=== PATIENT | female | born 1945 | race Caucasian/White ===

== ENCOUNTER 2019-04-18 16:16 | Inpatient (IN) | payer MEDICARE, BC ==
--- NOTE | 2019-04-18 17:43 | ED ---
Lower Extremity - HPI Summary HPI Summary: A 74 y/o F with Parkinson's presents to ED c/o R hip pain onset three days ago. Three days ago, after supper, she fell. She's unsure why exactly she fell. Due to the Parkinson's, she typically is weak on her R-side. She hit her back on the stove when she fell, but denies head trauma and LOC. She had imaging today that shows a displaced, angulated R hip fracture. She also denies any fever, chills, erythema of eyes, sore throat, CP, SOB, cough, abdominal pain, N/V, dysuria, hematuria, edema, rash, or dizziness. Pain is rated as 7 out of 10. Denies blood thinners. She's been taking extra strength Tylenol for pain. 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 Negative: Fever, Dizziness - Allergies/Home Medications Allergies/Adverse Reactions: Allergies Allergy/AdvReac Type Severity Reaction Status Date / Time ciprofloxacin Allergy Unknown Verified 04/18/19 16:24 Reaction Details codeine Allergy Unknown Verified 04/18/19 16:24 Reaction Details morphine Allergy Unknown Verified 04/18/19 16:24 Reaction Details Penicillins Allergy Unknown Verified 04/18/19 16:24 Reaction Details Sulfa (Sulfonamide Allergy Unknown Verified 04/18/19 16:24 Antibiotics) Reaction Details PMH/Surg Hx/FS Hx/Imm Hx Previously Healthy: No Endocrine/Hematology History: Denies: Hx Diabetes Cardiovascular History: Reports: Hx Hypertension - FLUCTUATES Denies: Hx Pacemaker/ICD History: Denies: Hx Renal Disease Sensory History: Denies: Hx Hearing Aid Psychiatric History: Denies: Hx Panic Disorder - Cancer History Hx Chemotherapy: No Hx Radiation Therapy: No - Surgical History Surgery Procedure, Year, and Place: EXP LAP, APPENDECTOMY Infectious Disease History: No Infectious Disease History: Denies: Traveled Outside the [place] in Last 30 Days - Family History Family History: neg: breast CA - Social History Occupation: Retired Lives: With Family Review of Systems Negative: Fever, Chills Negative: Erythema Negative: Sore Throat Negative: Chest Pain Negative: Shortness Of Breath, Cough Negative: Abdominal Pain, Vomiting, Nausea Negative: dysuria, hematuria Musculoskeletal: Other - pos: R hip pain Negative: Edema Negative: Rash Neurological: Other - neg: dizziness All Other Systems Reviewed And Are Negative: Yes Physical Exam - Summary Physical Exam Summary: Constitutional: Well-developed, Well-nourished, Alert. (-) Distressed Skin: Warm, Dry HENT: Normocephalic; Atraumatic Eyes: Conjunctiva normal Neck: Musculoskeletal ROM normal neck. (-) JVD, (-) Stridor, (-) Tracheal deviation Cardio: Rhythm regular, rate normal, Heart sounds normal; Intact distal pulses; The pedal pulses are 2+ and symmetric. Radial pulses are 2+ and symmetric. (-) Murmur Pulmonary/Chest wall: Effort normal. (-) Respiratory distress, (-) Wheezes, (-) Rales Abd: Soft, (-) epigastric tenderness, (-) Distension, (-) Guarding, (-) Rebound Musculoskeletal: (-) Edema, Pain with elevation about 50 degrees of RLE, no tenderness, distal sensations intact. Lymph: (-) Cervical adenopathy Neuro: Alert, Oriented x3 Psych: Mood and affect Normal Triage Information Reviewed: Yes Vital Signs On Initial Exam: Initial Vitals Temp Pulse Resp BP Pulse Ox 99 F 100 16 169/108 96 04/18/19 16:18 04/18/19 16:18 04/18/19 16:18 04/18/19 16:18 04/18/19 16:18 Vital Signs Reviewed: Yes Diagnostics - Vital Signs Vital Signs Temp Pulse Resp BP Pulse Ox 04/18/19 16:18 99 F 100 16 169/108 96 - Laboratory Result Diagrams: 04/18/19 17:55 Lab Statement: Any lab studies that have been ordered have been reviewed, and results considered in the medical decision making process. - Radiology CXR Radiology Interpretation Completed By: Radiologist Summary of Radiographic Findings: IMPRESSION: #. Elevated lung volumes suggest potential obstructive lung disease. #. No acute cardiopulmonary process evident. ED provider has reviewed this report. - EKG 1732 Cardiac Rate: Tachycardia - 105 bpm EKG Rhythm: Sinus Tachycardia Summary of EKG Findings: No STEMI. Re-Evaluation - Re-Evaluation 1 Re-Evaluation Time: 17:59 Change: Unchanged Comment: Discussing plans for admission with patient and . Lower Extremity Course/Dx - Course Course Of Treatment: Patient is a 74 y/o F with Parkinson's presenting with R hip pain onset three days ago s/p fall. Patient had imaging done today that found displaced, angulated R hip fracture. Denies blood thinners. EKG shows sinus tachycardia at 105 bpm, no STEMI. CXR shows "#. Elevated lung volumes suggest potential obstructive lung disease. #. No acute cardiopulmonary process evident.". Consulted with Dr. Ambrose, hospitalist, who will admit patient. Consulted with Dr. Oconnell, who believes surgery likely tomorrow. - Diagnoses Provider Diagnoses: Displaced fracture of right femoral neck - Physician Notifications Discussed Care Of Patient With: Christelle Ambrose - hospitalist Time Discussed With Above Provider: 17:54 Instructed by Provider To: Admit As Inpatient Discharge - Sign-Out/Discharge Documenting (check all that apply): Patient Departure - ADMIT Patient Received Moderate/Deep Sedation with Procedure: No - Discharge Plan Disposition: ADMITTED TO [facility] Referrals: Rao Up, FLOUR BROKER [Primary Care Provider] - - Attestation Statements Document Initiated by Scribe: Yes Documenting Scribe: Chastity Ocasio Provider For Whom Scribe is Documenting (Include Credential): Dr. Robbie Su MD Scribe Attestation: Chastity Hernandez, scribed for Dr. Robbie Su MD on 04/18/19 at 1824. Status of Scribe Document: Ready Consult Consult: 1800: Consult with Dr. Oconnell, ortho Advises, likely surgery tomorrow
[2019-04-18 18:12] LABS: Hematocrit 42 % (35-47); Hemoglobin 14.3 g/dL (12.0-16.0); Mean Corpuscular HGB Conc 34 g/dL (31-36); Mean Corpuscular Hemoglobin 28 pg (27-31); Mean Corpuscular Volume 83 fL (80-97); Mean Platelet Volume 7.1 fL (7.4-10.4); Platelet Count 223 10^3/uL (150-450); Red Cell Distribution Width 14 % (10.5-15); White Blood Count 6.6 10^3/uL (3.5-10.8)
[2019-04-18 18:19] LABS: Activated Partial Thrombo Time 31.4 seconds (26.0-38.0); INR 1.09 (0.82-1.09)
[2019-04-18 18:27] LABS: Albumin 4.3 g/dL (3.2-5.2); Albumin/Globulin Ratio 1.3 (1-3); BUN/Creatinine Ratio 25.6 (8-20); Calcium 9.8 mg/dL (8.6-10.3); EGFR African American 87.6 (>60); EGFR Non-African American 72.4 (>60); Globulin 3.3 g/dL (2-4); Potassium 3.7 mmol/L (3.5-5.0); Total Bilirubin 0.4 mg/dL (0.2-1.0); Total Protein 7.6 g/dL (6.4-8.9)
[2019-04-18 20:15] LABS: TSH (Thyroid Stimulating Horm) 0.76 mcIU/mL (0.34-5.60)
--- NOTE | 2019-04-18 20:20 | HP ---
CC: PCP, Rao Up NP * HISTORY AND PHYSICAL: DATE OF ADMISSION: 04/18/19 ATTENDING PHYSICIAN: Dr. Jay Oconnell. CHIEF COMPLAINT: Right hip pain. HISTORY OF PRESENT ILLNESS: Briefly, Ms. Batres is a 74-year-old community ambulator with Parkinson's disease and hypothyroidism, who presents with right hip pain after a fall on Thursday night. She has had because of her Parkinson's several issues with gait and balance control, but she says she does not exactly remember the fall and this is the same history for any of the falls she has. Sometimes, she gets a little lightheaded or she feels from where she is and then she falls. She denies any loss of consciousness, no numbness or tingling, but she cannot remember the fall. Her then found her and went to help get her up and picked her up, and elevated her legs. He has a history of clam bed worker and evaluated her, did not see anything was broken. He got her up and the next day she was having some pain weightbearing, so her [id number] who is a therapist brought her a walker and she practiced walking. There was some concern for some issues, she was unable to fully weight bear, but she was able to get around with the walker. She denies any numbness or tingling. No fevers or chills. No chest pain or shortness of breath. PAST MEDICAL HISTORY: Significant for Parkinson's and she sees Dr. Zaidi for that and hypothyroidism. She said she had hypertension in the past, but it has been controlled with Madhav Chi. PAST SURGICAL HISTORY: Appendectomy. She has had two breech children, but no other surgeries. MEDICATIONS: Tylenol p.r.n. and that she was only taking this since the injury. FAMILY HISTORY: Negative. SOCIAL HISTORY: She is retired. She walks with no assistive devices. She denies tobacco and does not drink. She lives with her . They have handicap accessible bathrooms. 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 She has 2 children, one of which is local. REVIEW OF SYSTEMS: A 14-point review of systems was reviewed and is significant only for right hip pain and difficulty ambulating. Otherwise, remainder of the systems negative. PHYSICAL EXAMINATION GENERAL: She is in no acute distress. She is well developed and well nourished. She is oriented x3. She has pleasant mood and normal affect. Good balance and coordination of the upper extremities. She has full range of motion of her right and left arms. She is sitting in the ER in a wheelchair fully clothed. VITAL SIGNS: Temperature is 99, pulse is 100, respiratory rate 16, O2 saturation is 96% on room air, blood pressure is 169/108 and somewhat elevated. HEENT: EOMI. CHEST: Clear to auscultation. HEART: Regular rate and rhythm. ABDOMEN: Soft, nontender. EXTREMITIES: Examination of the right hip demonstrates skin is intact. She is sensate to light touch about the first dorsal webspace; medial, lateral, dorsal , and plantar foot. She is able to dorsiflex and plantarflex. She has 2+ PT pulses. No calf pain. Sensate to light touch grossly distally and brisk cap refill. DIAGNOSTIC STUDIES/LAB DATA: X-rays were reviewed that demonstrate a valgus impacted femoral neck fracture with mild displacement. Labs: WBC of 6.6, hematocrit of 42, platelets of 223. INR 1.09. Sodium is 138 , potassium 3.7, chloride 103, carbon dioxide 24, BUN is 20, creatinine 0.78, glucose 131, calcium of 9.8. ASSESSMENT AND PLAN: She has a right hip valgus impacted femoral neck fracture. This is amenable to cannulated screws. I reviewed briefly the fracture, the type of fixation, the risks and benefits of surgery. Risks include but are not limited to bleeding, infection; damage to nerves, vessels, surrounding structures; wound nonhealing, persistent pain, need for further surgery, scarring, stiffness, incomplete relief of symptoms, risks of anesthesia , risk of DVT. She will undergo medical risk optimization and be admitted to the medicine service to be medically optimized. Her labs appeared to be perfectly managed, although she has some mild hyperglycemia. We will continue to monitor her status and if she is cleared, we will take her to surgery tomorrow for right hip cannulated screws. [id number]/[facility] #: [id number] [place]
[2019-04-18 21:48] LABS: Vitamin D Total 25(OH) 48.8 ng/mL (20-50)
[2019-04-18] MEDS ORDERED: Heparin VIAL(*) 5000 UNITS/ML VIAL (FIVE THOUSAND) SUBCUT SCH (22:00)
[2019-04-18] MEDS: Acetaminophen TAB* 325 MG PO PRN (22:37)
--- NOTE | 2019-04-18 22:52 | HP ---
CC: Rao Up NP * HISTORY AND PHYSICAL: DATE OF ADMISSION: 04/18/19 PROVIDER: Anna Rodas NP PRIMARY CARE PROVIDER: Rao Up NP ATTENDING PHYSICIAN WHILE IN THE HOSPITAL: Janel Guthrie MD * (dictated by Anna Rodas NP) CHIEF COMPLAINT: Right hip pain. HISTORY OF PRESENT ILLNESS: Ms. Batres is a 74-year-old female with past medical history significant for hypothyroid, acid reflux, anxiety, history of diverticulitis, who presented to the emergency room complaining of right hip pain after a fall on Thursday. The patient reports that she was home on Thursday, and approximately 6 p.m., lost her balance, fell, hitting her back on the stove and landing on her right hip. The patient reported that she had had right hip pain since Thursday. She had been doing exercises at home and using a walker. She felt like it was getting better, but was only able to bear little weight on the right leg. Due to the continued pain, the patient had imaging of her hip, which showed a displaced, angulated right hip fracture. So, she presented to the emergency room for further evaluation. The patient denies any fevers or chills. She denies any chest pain or shortness of breath. Denies any cough or hemoptysis. Denies any nausea, vomiting, diarrhea, or abdominal pain. Denies any gross hematuria, dysuria, focal weakness, or sensory loss. Denies any visual complaints. She does complain of right hip pain. Denies any rashes. She does have an abrasion noted to her left posterior back from the scrape she sustained during her fall. Denies any psychosis or anxiety. The patient currently rates her pain at 4. PAST MEDICAL HISTORY: Significant for: 1. Hypothyroid. 2. GERD. 3. Anxiety. 4. History of diverticulitis. 5. Parkinson's with mild right-side weakness. PAST SURGICAL HISTORY: 1. Appendectomy. 2. 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 3. Tonsillectomy. HOME MEDICATIONS: Include: 1. Levothyroxine 125 mcg p.o. daily. 2. Aspirin 81 mg p.o. daily. 3. Multivitamin. 4. Omeprazole 20 mg p.o. daily. 5. Citracal 2 tablets p.o. daily. 6. Sertraline 25 mg p.o. daily. ALLERGIES: CIPRO, CODEINE, MORPHINE, PENICILLINS, SULFA. FAMILY HISTORY: Father with a pacemaker, mother with an arrhythmia. No reported history of diabetes. Sister has lupus and mother had colon cancer in her 90s. SOCIAL HISTORY: Denies any tobacco, alcohol, or illicit drug use. She is . She lives with her . She is independent. Surrogate decision maker in the event she is unable to make her own decision is her , Librado. She is a full code. REVIEW OF SYSTEMS: An 11-point review of systems was completed, all pertinent positives were mentioned in the HPI. PHYSICAL EXAMINATION GENERAL: At this time, Ms. Batres is a 74-year-old female. She is alert and oriented, sitting on the wheelchair in the emergency room. She is in no acute distress. She is well developed, well nourished. VITAL SIGNS: Blood pressure 150/81, temperature is 98.2, heart rate 102, respirations 18, O2 saturation 98%. HEENT: Head is atraumatic, normocephalic. Eyes: EOMs are intact. Sclerae anicteric and not pale. Oral mucosa appeared to be moist. NECK: Supple. There is no C-spine tenderness. LUNGS: Clear to auscultation bilaterally. No wheezes, rales, or rhonchi. CARDIAC: S1, S2, regular rate and rhythm. No murmurs, rubs, or gallops. ABDOMEN: Soft and nontender. Bowel sounds are present x4. EXTREMITIES: She is able to move all 4 extremities. Pedal pulses are +2 bilaterally. She has no calf tenderness. She does have tenderness to the right hip. BACK: She does have a superficial abrasion noted to her left posterior back without surrounding erythema. NEUROLOGIC: She is awake, alert, oriented x3. Speech is clear. Thought process is intact. Cranial nerves II through XII are grossly intact. SKIN: She does have abrasion to the left posterior back. DIAGNOSTIC STUDIES/LAB DATA: WBCs are 6.6, RBCs 5.10, hemoglobin 14.3, hematocrit is 42, platelet count 223. INR 1.09. Sodium 138, potassium 3.7, chloride 103, carbon dioxide is 24, anion gap was 11, BUN 20, creatinine 0.78, glucose was 131, calcium was 9.8. ASTs were 20, ALTs were 16, alkaline phosphatase was 84. TSH 0.76. Vitamin D level is pending. Urine is pending. Chest x-ray: Elevated lung volumes suggest potential obstructive lung disease. No acute cardiopulmonary process is evident. She had an electrocardiogram, which showed sinus tachycardia at a rate of 105. ASSESSMENT AND PLAN: Ms. Batres is a 74-year-old female with a past medical history significant for hypothyroid, gastroesophageal reflux disease, anxiety, Parkinson's disease with chronic mild right-sided weakness, who presented to the emergency room after a fall at home on Thursday sustaining a right hip fracture. She will be admitted inpatient for: 1. Right hip fracture. The patient was seen in consultation by Orthopedics. Management of hip fracture will be per Orthopedics, PT/OT per Orthopedics. DVT per Orthopedics, bowel regimen per Orthopedics. Dr. Oconnell saw the patient in the emergency room and the patient will go to the OR tomorrow for a right hip repair. 2. Hypothyroid. She should continue on her levothyroxine 125 mcg p.o. daily. 3. Gastroesophageal reflux disease. Continue on omeprazole 20 mg p.o. daily. 4. Anxiety. She will continue on her sertraline 25 mg p.o. daily. 5. FEN. She can have a regular diet. She will be n.p.o. after midnight. 6. Code status: She is a full code. 7. DVT prophylaxis: I will give her 1 dose of heparin 5000 units subcu this evening. She will hold further dosing. I will place her on SCDs as the patient will be going to the OR tomorrow afternoon. I did discuss the heparin with Dr. Pearce from Anesthesia who approved this dosing prior to midnight tonight. TIME SPENT: Time spent on this admission was approximately 60 minutes; greater than half that time was spent at the bedside reviewing events leading thus far to her hospitalization, performing physical exam, and reviewing my plan of care. I have discussed this with my attending physician, Dr. Janel Guthrie; she is in agreement with my plan. ANNA RODAS, CRIMINAL JUDGE [id number]/[facility] #: [id number] [place]
[2019-04-19 02:11] LABS: Urine Appearance Cloudy; Urine Bacteria Absent (Absent); Urine Bilirubin Negative (Negative); Urine Blood Negative (Negative); Urine Color Yellow; Urine Glucose Negative (Negative); Urine Ketones Negative (Negative); Urine Nitrite Negative (Negative); Urine Protein Negative (Negative); Urine Red Blood Cell Absent (Absent); Urine Specific Gravity 1.016 (1.010-1.030); Urine Squamous Epithelial Cell Present (Absent); Urine Urobilinogen Negative (Negative); Urine White Blood Cell 2+(11-20/hpf) (Absent)
[2019-04-19] MEDS ORDERED: NS 0.9% 1000 ML** 1,000 ML IV SCH ×2 (02:45→22:30)
[2019-04-19] MEDS ORDERED: Cyclobenzaprine TAB* 10 MG PO ONE (03:11)
[2019-04-19] MEDS ORDERED: Cyclobenzaprine TAB* 10 MG ONE (03:15)
[2019-04-19] MEDS: Acetaminophen TAB* 325 MG PO PRN ×3 (03:19→20:36)
[2019-04-19] MEDS: Levothyroxine TAB* 125 MCG TAB PO SCH (05:24)
--- NOTE | 2019-04-19 06:41 | PN ---
Progress Note - Progress Note Date of Service: 04/19/19 Note: Pt to be examined but sleeping soundly. Will see later today. NPO
[2019-04-19] MEDS: Multivitamins/Minerals TAB PO SCH (08:49)
[2019-04-19] MEDS: Pantoprazole TAB * 40 MG TAB PO SCH (08:52)
[2019-04-19] MEDS ORDERED: Sertraline* 25 MG TAB PO SCH (09:00)
--- NOTE | 2019-04-19 11:05 | PN ---
Subjective Date of Service: 04/19/19 Interval History: Patient reports some breathrough hip pain at time of visit. It was previously well controlled. She reports some mild abdomen discomfort due to needing to have a BM. She denies chest pain, difficulty breathing, diarrhea, nausea, vomiting. She denies chest pain or SOB when walking [address] or going up stairs. Objective Active Medications: Acetaminophen (Tylenol Tab*) 650 mg PO Q4H PRN PRN Reason: FEVER/PAIN Last Admin: 04/19/19 10:48 Dose: 650 mg Sodium Chloride (Ns 0.9% 1000 Ml) 1,000 mls @ 75 mls/hr IV PER RATE [facility] Last Admin: 04/19/19 04:25 Dose: 75 mls/hr Levothyroxine Sodium (Synthroid Tab*) 125 mcg PO 0600 [facility] Last Admin: 04/19/19 05:24 Dose: 125 mcg Multivitamins/Minerals (Theragran/Minerals Tab*) 1 tab PO DAILY [facility] Last Admin: 04/19/19 08:49 Dose: Not Given Pantoprazole Sodium (Protonix Tab*) 40 mg PO DAILY [facility] Last Admin: 04/19/19 08:52 Dose: 40 mg Sertraline HCl (Zoloft*) 25 mg PO 2100 [facility] Vital Signs - 8 hr 04/19/19 04/19/19 04/19/19 03:19 03:24 04:30 Temperature 97.7 F Pulse Rate 75 Respiratory 16 16 Rate Blood Pressure 157/75 (mmHg) O2 Sat by Pulse 98 Oximetry 04/19/19 04/19/19 05:27 07:31 Temperature 97.7 F Pulse Rate 74 Respiratory 16 16 Rate Blood Pressure 178/93 (mmHg) O2 Sat by Pulse 96 Oximetry Oxygen Devices in Use Now: None Appearance: Thin, elderly white female, laying comfortably in hospital bed, appearing in NAD Eyes: No Scleral Icterus, PERRLA Ears/Nose/Mouth/Throat: Mucous Membranes Moist Neck: NL Appearance and Movements; NL JVP Respiratory: Symmetrical Chest Expansion and Respiratory Effort, Clear to Auscultation Cardiovascular: NL Sounds; No Murmurs; No JVD, RRR Abdominal: NL Sounds; No Tenderness; No Distention Extremities: No Edema, No Clubbing, Cyanosis Skin: No Rash or Ulcers Neurological: Alert and Oriented x 3 Result Diagrams: 04/18/19 17:55 04/18/19 17:55 Assess/Plan/Problems-Billing Assessment: 74 yo white female with pmhx parkinson's, hypothyroidism, hx of HTN, anxiety, and GERD presents to ED for R hip pain 3 days after mechanical fall at home. - Patient Problems (1) Hip fracture Code(s): S72.009A - FRACTURE OF UNSP PART OF NECK OF UNSP FEMUR, INIT SNOMED Code(s): 508205922 Comment: -slightly displaced fracture to right femoral neck -s/p mechanical fall 3 days prior to admission -patient has RCRI risk score of 0; NSQIP serious complication risk of 4.2% and cardiac complication risk of 0%; patient is cleared from a medical standpoint for surgery -scheduled for surgery with Dr. Oconnell today -continue bedrest, po pain control, and bowel regimen -postoperatively, orthopedic surgery will direct PT needs (2) Parkinsons Code(s): G20 - PARKINSON'S DISEASE SNOMED Code(s): 52268886 Comment: -likely contributed to her fall at home -it appears patient doesn't take medication at home -supportive care (3) Hypothyroid Code(s): E03.9 - HYPOTHYROIDISM, UNSPECIFIED SNOMED Code(s): 98086829 Comment: -continue home synthroid (4) Hypertension Code(s): I10 - ESSENTIAL (PRIMARY) HYPERTENSION SNOMED Code(s): 67378666 Comment: -patient doesn't take antihypertensives at home -has been minimally hypertensive at times, will discontinue fluids and continue to monitor -hesitant to restart medication at this time as patient will be postop tomorrow and likely to have orthostatic hypotension (5) DVT prophylaxis Code(s): Z29.9 - ENCOUNTER FOR PROPHYLACTIC MEASURES, UNSPECIFIED SNOMED Code( s): 277900955 Comment: -no chemical ppx in setting of surgery today -continue SCDs (6) Full code status Code(s): Z78.9 - OTHER SPECIFIED HEALTH STATUS SNOMED Code(s): 280204206
--- NOTE | 2019-04-19 11:06 | PN ---
Progress Note - Progress Note Date of Service: 04/19/19 Note: Patient has a right hip valgus impacted femoral neck fracture requiring cannulated screw fixation. She is optimized by our medicine service and will go to the operating room this evening with Dr Oconnell. I discussed this plan with the patient, she is aware and agreeable, all of her questions were answered.
[2019-04-19] MEDS ORDERED: diPHENhydraMINE IV* 50 MG/ML 1 ml VIAL (BENADRYL) IV PRN (12:41)
[2019-04-19] MEDS ORDERED: diPHENhydraMINE PO* 25 MG PO PRN (12:41)
[2019-04-19] MEDS ORDERED: Ropivacaine* 2 MG/ML 20 ML VIAL (0.2%) ONE (13:50)
[2019-04-19] MEDS ORDERED: Buffered Lidocaine 1% SYRIN* 1 ML/SYRINGE INTRADERM ONE ×2 (14:43→14:46)
[2019-04-19] MEDS ORDERED: ceFAZolin 2 GM PREMIX in ORs 2 GM/50 ML BAG ONE (14:45)
[2019-04-19] MEDS ORDERED: Lactated Ringers 1000 ML Bag* 1,000 ML IV SCH (15:00)
[2019-04-19] MEDS ORDERED: Midazolam* 1 MG/ML 2 ML VIAL (2 MG) ONE (16:12)
[2019-04-19] MEDS ORDERED: fentaNYL* 50 MCG/ML 2 ML VIAL (100 MCG VIAL) ONE (16:12)
[2019-04-19] MEDS ORDERED: Bupivacaine 0.5% SDV PF* 30ML VIAL ONE (16:13)
[2019-04-19] MEDS ORDERED: Propofol* 10 MG/ML 20 ML BTL ONE (16:13)
[2019-04-19] MEDS ORDERED: Lidocaine 2% PF * 5 ML VIAL ONE (16:14)
[2019-04-19] MEDS ORDERED: Famotidine IV* 10 MG/ML 2 ML (20 mg) ONE (16:23)
--- NOTE | 2019-04-19 16:26 | PN ---
Progress Note - Progress Note Date of Service: 04/19/19 Note: H and P update Pt doing ok. NPO for R hip cannulated screws. Risks and benefits discussed at length. Consent signed. Optimized by medicine.
[2019-04-19] MEDS ORDERED: Ondansetron INJ* 2 MG/ML VIAL ONE (16:58)
[2019-04-19] MEDS ORDERED: diPHENhydraMINE IV* 50 MG/ML 1 ml VIAL (BENADRYL) ONE (16:58)
[2019-04-19] MEDS ORDERED: fentaNYL* 50 MCG/ML 2 ML VIAL (100 MCG VIAL) IV PRN (17:33)
[2019-04-19] MEDS ORDERED: DiMENhydriNATE IV* 50 MG/ML VIAL IV PUSH PRN (17:33)
[2019-04-19] MEDS ORDERED: Ondansetron INJ* 2 MG/ML VIAL IV PRN (17:33)
[2019-04-19] MEDS ORDERED: Naloxone* 0.4 MG/ML 1 ML VIAL IV PRN (17:33)
[2019-04-19] MEDS ORDERED: Docusate CAP* 100 MG PO PRN (22:22)
[2019-04-19] MEDS ORDERED: traMADol TAB* 50 MG PO PRN ×2 (22:23→22:24)
[2019-04-19] MEDS ORDERED: HYDROmorphone INJ1* 1 MG/ML SYRINGE IV PRN ×2 (22:25→22:26)
[2019-04-19] MEDS: Sertraline* 25 MG TAB PO SCH (22:36)
[2019-04-20] MEDS ORDERED: Ondansetron INJ* 2 MG/ML VIAL IV PRN (00:32)
[2019-04-20] MEDS ORDERED: Cyclobenzaprine TAB* 10 MG PO PRN ×2 (00:32→15:32)
[2019-04-20] MEDS: ceFAZolin 1 GM* X 3 DOSES POST-OP Q8H (AddVan) IVPB SCH ×6 (00:56→16:29)
[2019-04-20 06:09] LABS: BUN/Creatinine Ratio 18.4 (8-20); Calcium 9.6 mg/dL (8.6-10.3); EGFR African American 77.2 (>60); EGFR Non-African American 63.8 (>60); Potassium 4.2 mmol/L (3.5-5.0)
[2019-04-20 06:15] LABS: Hematocrit 39 % (35-47); Hemoglobin 13.1 g/dL (12.0-16.0); Mean Platelet Volume 7.2 fL (7.4-10.4); Platelet Count 193 10^3/uL (150-450)
[2019-04-20] MEDS: Levothyroxine TAB* 125 MCG TAB PO SCH (06:15)
--- NOTE | 2019-04-20 07:41 | PN ---
Progress Note - Progress Note Date of Service: 04/20/19 Note: Pt seen and examined. Had a rough night with significant pain. But it has calmed down. Denies numbness or tingling. No calf pain. Temp Pulse Resp BP Pulse Ox 98.1 F 76 16 141/65 99 04/20/19 07:32 04/20/19 07:32 04/20/19 07:32 04/20/19 07:32 04/20/19 07:32 NAD. AAOx3. lying comfortably in the bed. Dressing in place. calf soft and nontender. SILT grossly distally. brisk cap refill. able to DF/PF foot. flex/ ext toes. Laboratory Results - last 24 hr 04/18/19 04/20/19 04/20/19 17:55 05:40 05:40 Hgb 13.1 Hct 39 Plt Count 193 MPV 7.2 L Sodium 138 Potassium 4.2 Chloride 104 Carbon Dioxide 27 Anion Gap 7 BUN 16 Creatinine 0.87 Est GFR ( Amer) 77.2 Est GFR (Non-Af Amer) 63.8 BUN/Creatinine Ratio 18.4 Glucose 117 H Calcium 9.6 Blood Type O Negative Antibody Screen Negative A/P 74 yo F POD#1 from R hip cannulated screws doing well WBAT- PT/OT ancef post op dvt ppx with lovenox dispo snf vs home with services. pt would like to consider rehab
[2019-04-20] MEDS: Acetaminophen TAB* 325 MG PO PRN ×4 (07:49→22:31)
[2019-04-20] MEDS: Pantoprazole TAB * 40 MG TAB PO SCH (08:38)
[2019-04-20] MEDS: Multivitamins/Minerals TAB PO SCH (08:38)
--- NOTE | 2019-04-20 10:08 | OP ---
AMENDED REPORT TO CORRECT DATE OF OPERATION - ESIGNED BEFORE ADJUSTMENTS CC: PCP, Rao Up NP * DATE OF OPERATION: 04/19/19 - ROOM #346 DATE OF : 47 SURGEON: Jay Oconnell MD CLERK MANAGER: None available. PRE-OP DIAGNOSIS: Right valgus impacted femoral neck fracture. POST-OP DIAGNOSIS: Right valgus impacted femoral neck fracture. OPERATIVE PROCEDURE: Closed reduction with cannulated screws to the right hip. COMPLICATIONS: None. ESTIMATED BLOOD LOSS: 50. IMPLANTS: Three 7.3 mm short thread screws of the appropriate lengths. INDICATIONS: Carmela Batres is a 74-year-old female with Parkinson's disease, who fell on Thursday. She presented to the ER on Thursday with a valgus impacted femoral neck fracture. She had been weightbearing with a walker on it. She was brought in by her . She underwent admission, medical optimization by the medicine team and we discussed surgical treatment. Risks and benefits were discussed included, but not limited to bleeding, infection, damage to nerves, vessels, surrounding structures, wound nonhealing, persistent pain, need for further surgery, scarring, stiffness, incomplete relief of symptoms, risks of anesthesia, and risk of DVT. She elected to proceed. DESCRIPTION OF PROCEDURE: The patient was greeted in the preoperative area by the attending surgery. Correct extremity was marked and consent was confirmed. The patient was brought back to the operating suite, where she was placed in supine position on the operating table. She then underwent spinal anesthesia, after which she was properly positioned on the fracture table. Gentle internal reduction was used to reduce the fracture, which was checked on the AP and lateral views and found to be acceptable. The right hip was then prepped and draped in the usual sterile fashion with chlorhexidine soap, scrub, and alcohol wipe and a final prep of ChloraPrep. After appropriate surgical pause indicating side, site, procedure, and administration of antibiotics, a 10 blade was used to make a lateral incision. The soft tissues were dissected to expose the IT band, which was then incised as well. At this point, the 2.0 mm guidewire was then placed getting inferiorly to try to capture as much as as the inferior neck as well as the fracture fragment. Once this was placed, two pins were placed proximally in an inverted triangle pattern, first superiorly, then posteriorly. Once these were checked in the AP and lateral views, once they were appropriately positioned. They were measured, two screws were size 75 and one was size 80. The lateral cortex was drilled beginning inferiorly, this was secured to with a good purchase, then superiorly and posteriorly as well with good purchase. The pins were removed. The hardware was found to be inside the joint. Several views were taken to make sure it did not penetrate. Final images were obtained. The wound was copiously irrigated with sterile saline. The IT band was closed with 0 Vicryl interrupted fashion. The deep tissue was closed with 3-0 Monocryl and then subcutaneously 3-0 Monocryl subcutaneous sutures and the skin with yudy. The wound was injected with 0.2% ropivacaine. Sterile dresses were applied. She was awoken from anesthesia, transferred to PACU in stable condition. POSTOPERATIVE PLAN: She will be weightbearing as tolerated. She will begin physical therapy as soon as possible. She is on 24 hours postoperative antibiotics. DVT prophylaxis was considered and because of the high risk, she will be on Lovenox after 6 weeks. I will see the patient back in 10 the 14 days and follow her in the hospital. Dressing change will be postop day 2. [id number]/[facility] #: [id number] COLLIN
[2019-04-20] MEDS ORDERED: Enoxaparin(*) 40 MG/0.4 ML SYR SUBCUT SCH (14:00)
[2019-04-20] MEDS ORDERED: Senna TAB PO PRN (15:40)
[2019-04-20] MEDS ORDERED: Polyethylene Glycol 3350* 17 GM PACKET PO PRN (15:40)
[2019-04-20] MEDS ORDERED: Magnesium Hydroxide LIQ* 30 ML UDC PO PRN (15:40)
[2019-04-20] MEDS ORDERED: Magnesium Hydroxide LIQ* 30 ML UDC ONE (15:42)
--- NOTE | 2019-04-20 15:58 | PN ---
Subjective Date of Service: 04/20/19 Interval History: Patient reports her hip pain has been well tolerated with tylenol this morning, prefers to not use opiates. Tried tramadol overnight and vomited. No nausea/ vomiting since. Overnight pain was worse due to muscle spasms in right thigh. Denies dysuria, abd pain, fever/chills, chest pain, dyspnea. Objective Active Medications: Acetaminophen (Tylenol Tab*) 650 mg PO Q4H PRN PRN Reason: FEVER/PAIN Last Admin: 04/20/19 13:13 Dose: 650 mg Cyclobenzaprine HCl (Flexeril Tab*) 10 mg PO BID PRN PRN Reason: muscle spasm Diphenhydramine HCl (Benadryl Iv*) 25 mg IV Q6H PRN PRN Reason: PRURITIS Diphenhydramine HCl (Benadryl Po*) 25 mg PO Q6H PRN PRN Reason: ITCHING Docusate Sodium (Colace Cap*) 100 mg PO BID PRN PRN Reason: CONSTIPATION Last Admin: 04/20/19 15:46 Dose: 100 mg Docusate Sodium (Colace Cap*) 100 mg PO BID [facility] Enoxaparin Sodium (Lovenox(*)) 40 mg SUBCUT Q24H [facility] Stop: 05/31/19 14:01 Last Admin: 04/20/19 14:12 Dose: 40 mg Hydromorphone HCl (Dilaudid Inj1s*) 0.5 mg IV Q2H PRN PRN Reason: PAIN BREAKTHROUGH Hydromorphone HCl (Dilaudid Inj1s*) 1 mg IV Q4H PRN PRN Reason: UNRELIEVED PAIN Last Admin: 04/20/19 00:08 Dose: 1 mg Cefazolin Sodium 1 gm/ Sodium (Chloride) 50 mls @ 200 mls/hr IVPB Q8H [facility] Stop: 04/20/19 17:14 Last Admin: 04/20/19 08:37 Dose: 200 mls/hr Sodium Chloride (Ns 0.9% 1000 Ml) 1,000 mls @ 75 mls/hr IV PER RATE [facility] Last Admin: 04/20/19 00:08 Dose: 75 mls/hr Ceftriaxone Sodium 1 gm/ (Sodium Chloride) 50 mls @ 200 mls/hr IVPB Q24H [facility] Levothyroxine Sodium (Synthroid Tab*) 125 mcg PO 0600 [facility] Last Admin: 04/20/19 06:15 Dose: 125 mcg Magnesium Hydroxide (Milk Of Magnesia Liq*) 30 ml PO BID [facility] Magnesium Hydroxide (Milk Of Magnesia Liq*) 30 ml PO BID PRN PRN Reason: CONSTIPATION Multivitamins/Minerals (Theragran/Minerals Tab*) 1 tab PO DAILY [facility] Last Admin: 04/20/19 08:38 Dose: 1 tab Ondansetron HCl (Zofran Inj*) 4 mg IV Q6H PRN PRN Reason: NAUSEA Last Admin: 04/20/19 00:41 Dose: 4 mg Pantoprazole Sodium (Protonix Tab*) 40 mg PO DAILY [facility] Last Admin: 04/20/19 08:38 Dose: 40 mg Polyethylene Glycol/Electrolytes (Miralax*) 17 gm PO DAILY PRN PRN Reason: CONSTIPATION Senna (Senokot Tab*) 1 tab PO BEDTIME PRN PRN Reason: CONSTIPATION Sertraline HCl (Zoloft*) 25 mg PO 2100 [facility] Last Admin: 04/19/19 22:36 Dose: 25 mg Tramadol HCl (Ultram*) 25 mg PO Q6H PRN PRN Reason: PAIN MODERATE Tramadol HCl (Ultram*) 50 mg PO Q6H PRN PRN Reason: PAIN SEVERE Last Admin: 04/19/19 22:36 Dose: 50 mg Vital Signs - 8 hr 04/20/19 04/20/19 04/20/19 08:00 09:55 11:12 Temperature 98 F Pulse Rate 93 90 Respiratory 16 18 Rate Blood Pressure 145/72 99/57 (mmHg) O2 Sat by Pulse 94 98 Oximetry 04/20/19 04/20/19 12:04 15:44 Temperature 98.1 F Pulse Rate 100 Respiratory 16 Rate Blood Pressure 132/62 128/59 (mmHg) O2 Sat by Pulse 96 Oximetry Oxygen Devices in Use Now: None Appearance: Thin, elderly white female laying upright in hospital bed in NAD Eyes: No Scleral Icterus, PERRLA Ears/Nose/Mouth/Throat: Mucous Membranes Moist Neck: NL Appearance and Movements; NL JVP Respiratory: Symmetrical Chest Expansion and Respiratory Effort, Clear to Auscultation Cardiovascular: NL Sounds; No Murmurs; No JVD, RRR Abdominal: - - abd soft nontender nondistended Extremities: No Edema, No Clubbing, Cyanosis Skin: No Rash or Ulcers Neurological: Alert and Oriented x 3, NL Muscle Strength and Tone Result Diagrams: 04/20/19 05:40 04/20/19 05:40 Microbiology and Other Data: Microbiology 04/19/19 01:50 Urine Culture - Preliminary Urine Escherichia Coli Assess/Plan/Problems-Billing Assessment: 74 yo white female with pmhx parkinson's, hypothyroidism, hx of HTN, anxiety, and GERD presents to ED for R hip pain 3 days after mechanical fall at home. - Patient Problems (1) Hip fracture Code(s): S72.009A - FRACTURE OF UNSP PART OF NECK OF UNSP FEMUR, INIT SNOMED Code(s): 316902628 Comment: -slightly displaced fracture to right femoral neck -s/p mechanical fall 3 days prior to admission -s/p surgery with Dr. Oconnell 04/19/19 for closed reduction -continue pain control of prn tramadol, dilaudid, tylenol. Pt prefers to avoid opiates and has been taking tylenol since intolerance of one time tramadol -added prn flexeril -postoperatively, orthopedic surgery will direct PT needs (2) UTI (urinary tract infection) Comment: -incidental UTI found from preop UA and urine culture -urine culture growing E. coli, sensitivites pending -pt finished cefazolin which was given by ortho surg, starting IV ceftriaxone today -patient asymptomatic and afebrile (3) Parkinsons Code(s): G20 - PARKINSON'S DISEASE SNOMED Code(s): 61953873 Comment: -likely contributed to her fall at home -it appears patient doesn't take medication at home -supportive care (4) Hypothyroid Code(s): E03.9 - HYPOTHYROIDISM, UNSPECIFIED SNOMED Code(s): 88764253 Comment: -continue home synthroid (5) Hypertension Code(s): I10 - ESSENTIAL (PRIMARY) HYPERTENSION SNOMED Code(s): 26627294 Comment: -patient doesn't take antihypertensives at home -one time hypertensive to SBP 200 overnight, but has been normotensive since that time, will continue to monitor -hesitant to restart medication at this time as patients are frequently with orthostatic hypotension postoperatively (6) DVT prophylaxis Code(s): Z29.9 - ENCOUNTER FOR PROPHYLACTIC MEASURES, UNSPECIFIED SNOMED Code( s): 324414833 Comment: -lovenox (7) Full code status Code(s): Z78.9 - OTHER SPECIFIED HEALTH STATUS SNOMED Code(s): 145704577 Status and Disposition: d/c to [facility] tomorrow
[2019-04-20] MEDS ORDERED: cefTRIAXone(*) 1 GM in NS 0.9% 50 ML* 50 ML IVPB SCH (18:00)
[2019-04-20] MEDS: Sertraline* 25 MG TAB PO SCH (20:11)
[2019-04-20] MEDS: Docusate CAP* 100 MG PO SCH (20:11)
[2019-04-20] MEDS: Magnesium Hydroxide LIQ* 30 ML UDC PO SCH (20:12)
[2019-04-21] MEDS: Acetaminophen TAB* 325 MG PO PRN ×2 (04:30→08:50)
[2019-04-21 05:11] LABS: Hematocrit 35 % (35-47); Hemoglobin 11.9 g/dL (12.0-16.0); Mean Platelet Volume 7.1 fL (7.4-10.4); Platelet Count 183 10^3/uL (150-450)
[2019-04-21 05:24] LABS: Calcium 9.2 mg/dL (8.6-10.3); EGFR African American 93.1 (>60); EGFR Non-African American 76.9 (>60); Potassium 3.7 mmol/L (3.5-5.0)
[2019-04-21] MEDS: Levothyroxine TAB* 125 MCG TAB PO SCH (05:59)
--- NOTE | 2019-04-21 07:53 | PN ---
Subjective Date of Service: 04/21/19 Interval History: Ms. Batres reports a mild speckled rash to her hands. She denies other complaint. She thinks this rash just appeared overnight. She denies chest pain , SOB, nausea, or abdominal pain. She is looking forward to starting intensive rehab so that she can get back home and healthy as soon as possible. Objective Active Medications: Acetaminophen (Tylenol Tab*) 650 mg PO Q4H PRN Cyclobenzaprine HCl (Flexeril Tab*) 10 mg PO BID PRN Diphenhydramine HCl (Benadryl Iv*) 25 mg IV Q6H PRN Diphenhydramine HCl (Benadryl Po*) 25 mg PO Q6H PRN Docusate Sodium (Colace Cap*) 100 mg PO BID PRN Docusate Sodium (Colace Cap*) 100 mg PO BID [facility] Enoxaparin Sodium (Lovenox(*)) 40 mg SUBCUT Q24H [facility] Hydromorphone HCl (Dilaudid Inj1s*) 0.5 mg IV Q2H PRN Hydromorphone HCl (Dilaudid Inj1s*) 1 mg IV Q4H PRN Sodium Chloride (Ns 0.9% 1000 Ml) 1,000 mls @ 75 mls/hr IV PER RATE [facility] Ceftriaxone Sodium 1 gm/ (Sodium Chloride) 50 mls @ 200 mls/hr IVPB Q24H [facility] Levothyroxine Sodium (Synthroid Tab*) 125 mcg PO 0600 [facility] Magnesium Hydroxide (Milk Of Magnesia Liq*) 30 ml PO BID [facility] Magnesium Hydroxide (Milk Of Magnesia Liq*) 30 ml PO BID PRN Multivitamins/Minerals (Theragran/Minerals Tab*) 1 tab PO DAILY [facility] Ondansetron HCl (Zofran Inj*) 4 mg IV Q6H PRN Pantoprazole Sodium (Protonix Tab*) 40 mg PO DAILY [facility] Polyethylene Glycol/Electrolytes (Miralax*) 17 gm PO DAILY PRN Senna (Senokot Tab*) 1 tab PO BEDTIME PRN Sertraline HCl (Zoloft*) 25 mg PO 2100 [facility] Tramadol HCl (Ultram*) 25 mg PO Q6H PRN Tramadol HCl (Ultram*) 50 mg PO Q6H PRN Vital Signs: Temp Pulse Resp BP Pulse Ox 98.2 F 88 18 140/69 95 04/21/19 03:14 04/21/19 03:14 04/21/19 03:14 04/21/19 03:14 04/21/19 03:14 Oxygen Devices in Use Now: None Appearance: Female lying in bed in NAD Eyes: No Scleral Icterus Ears/Nose/Mouth/Throat: Mucous Membranes Moist Neck: Trachea Midline Respiratory: Symmetrical Chest Expansion and Respiratory Effort Cardiovascular: NL Sounds; No Murmurs; No JVD Abdominal: NL Sounds; No Tenderness; No Distention Skin: No Rash or Ulcers Neurological: Alert and Oriented x 3, NL Muscle Strength and Tone Nutrition: Taking PO's Result Diagrams: 04/21/19 04:58 04/21/19 04:58 Microbiology and Other Data: Microbiology 04/19/19 01:50 Urine Culture - Preliminary Urine Escherichia Coli Assess/Plan/Problems-Billing Assessment: Ms. Batres is 74 yo white female with pmhx parkinson's, hypothyroidism, hx of HTN, anxiety, and GERD presents to ED for R hip pain 3 days after mechanical fall at home. - Patient Problems (1) Hip fracture Comment: - s/p surgery with Dr. Oconnell 04/19/19 for closed reduction - continue tylenol (2) UTI (urinary tract infection) Comment: - Suspect contamination - Afebrile, ecoli with < 10,000 colonies - Stop antibiotics (3) Hypertension Comment: - SBP 130-160s - Consider starting pain meds on [facility] or outpatient (4) Hypothyroid Comment: -continue home synthroid (5) Parkinsons Comment: - does not take meds outpatient - supportive care (6) DVT prophylaxis Comment: -lovenox (7) Full code status Comment: Status and Disposition: D/C to [facility]
[2019-04-21] MEDS: Docusate CAP* 100 MG PO SCH (07:56)
[2019-04-21] MEDS: Pantoprazole TAB * 40 MG TAB PO SCH (07:56)
[2019-04-21] MEDS: Multivitamins/Minerals TAB PO SCH (07:56)
[2019-04-21] MEDS: Magnesium Hydroxide LIQ* 30 ML UDC PO SCH (07:57)
[2019-04-21 08:00] VITALS: BP 148/68
--- NOTE | 2019-04-21 09:13 | DS ---
CC: Rao Up NP * DISCHARGE SUMMARY: DATE OF ADMISSION: 04/18/19 DATE OF DISCHARGE: 04/21/19 PRIMARY CARE PROVIDER: Rao Up NP. ATTENDING PHYSICIAN: Dr. Christelle Ambrose * (dictation provided by Zohra Anderson NP ). PRIMARY DIAGNOSES: 1. Right hip valgus impacted femoral neck fracture, status post closed reduction with cannulated screws. 2. Question urinary tract infection, ruled out. SECONDARY DIAGNOSES: 1. History of Parkinson's disease. 2. Hypothyroidism. 3. Question hypertension. PAST SURGICAL HISTORY: Appendectomy. MEDICATIONS AT THE TIME OF DISCHARGE: 1. Tylenol p.r.n. 2. Cyclobenzaprine p.r.n. 3. Docusate 100 mg p.o. b.i.d. p.r.n. 4. Lovenox 40 mg subcutaneously daily. 5. Levothyroxine 125 mcg p.o. daily. 6. Sertraline 25 mg p.o. daily. HOSPITAL COURSE: Ms. Batres is a 74-year-old female with a past medical history as outlined above, who presented to the emergency room on 04/18/19 with concern for right hip pain. Please see the dictated H and P from Anna Rodas for complete details. In brief, the patient reported that she had fallen on to her right hip on Thursday night prior to admission. She noted having Parkinson's and issues with gait and balance control and note that she is not on any Parkinson's medication outpatient but does follow Dr. Zaidi. On the following day, she was unable to fully weight bear and therefore she presented to the emergency room for evaluation where she was found to have a slightly displaced and angulated fracture of the right femoral neck. Ms. Batres was admitted to the hospital. She was seen in consultation by Dr. Oconnell from Orthopedics and ultimately taken to the OR on 04/20/19 for closed reduction and placement of cannulated screws as noted. Ms. Batres has been doing well in the postoperative period. There was concern that perhaps she had a urinary tract infection based on finding of E. coli in the urine, however, the patient only had less than 10,000 colony count. She had no fever. She had no dysuria, had no leukocytosis, therefore I think this was a simple contamination and antibiotics had been discontinued. The only thing I noted that the patient had slightly elevated blood pressure again this hospitalization and notes the history of the same. During the inpatient stay, she had blood pressure running up to 200 but generally ran more 130s to 160s. I did not start antihypertensive that she also had a low blood pressure 99/57, but I think she deserved close monitoring and would likely benefit from addition of antihypertensive either on [facility] or by her outpatient provider. Ms. Batres is medically stable for discharge. She will be going to [facility]. DISPOSITION: To [facility]. DIET: Low salt. ACTIVITY: As tolerated with hip precautions as outlined per Orthopedic Surgery. FOLLOWUP PLANS: Please follow up with our nurse practitioner, Rao Up, at the time of discharge regarding acute hospitalization, requesting regarding management of hypertension and/or potentially restarting Parkinson's medications. TIME SPENT: Approximately 60 minutes was spent on the discharge of this patient , more than half of the time was spent with the patient at the bedside reviewing the events leading up to and during this hospitalization, performing the physical examination and reviewing my plan of care. ZOHRA ANDERSON NP [id number]/[facility] #: [id number] COLLIN
--- NOTE | 2019-04-21 09:47 | PN ---
Progress Note - Progress Note Date of Service: 04/21/19 SOAP: Subjective: []Pt seen at bedside. She feels well with well controlled right hip pain. Denies CP, SOB, dizziness, nausea. Will be going to [facility] today. Objective: []General: NAD, appears comfortable RLE: Right hip dressing changed, incision CDI, thigh soft, DP2+, DF/PF intact, sensation intact to light touch distally Calves supple and nontender without erythema, edema or palpable cords Assessment: []74 yo F POD#2 from R hip cannulated screws Plan: [] WBAT- PT/OT dvt ppx with lovenox for 6 weeks DC to [facility] Vital Signs Temp 98 F 04/21/19 07:58 Pulse 79 04/21/19 07:58 Resp 18 04/21/19 08:00 BP 148/68 04/21/19 07:58 Pulse Ox 97 04/21/19 07:58 Intake & Output 04/20/19 04/21/19 04/21/19 18:59 06:59 18:59 Intake Total 1809 1000 360 Output Total 700 1050 500 Balance 1109 -50 -140 Intake: IV Fluids 997 NS (0.9%) 997 IVPB 222 NS (0.9%) 222 Oral 590 1000 360 Output: Urine 550 1050 500 Hammonds 150 Laboratory Last Values WBC 6.6 10^3/uL (3.5-10.8) 04/18/19 17:55 RBC 5.10 10^6 /uL (3.70-4.87) H 04/18/19 17:55 Hgb 11.9 g/dL (12.0-16.0) L 04/21/19 04:58 Hct 35 % (35-47) 04/21/19 04:58 MCV 83 fL (80-97) 04/18/19 17:55 MCH 28 pg (27-31) 04/18/19 17:55 MCHC 34 g/dL (31-36) 04/18/19 17:55 RDW 14 % (10.5-15) 04/18/19 17:55 Plt Count 183 10^3/uL (150-450) 04/21/19 04:58 MPV 7.1 fL (7.4-10.4) L 04/21/19 04:58 INR (Anticoag Therapy) 1.09 (0.82-1.09) 04/18/19 17:55 APTT 31.4 seconds (26.0-38.0) 04/18/19 17:55 Sodium 140 mmol/L (135-145) 04/21/19 04:58 Potassium 3.7 mmol/L (3.5-5.0) 04/21/19 04:58 Chloride 106 mmol/L (101-111) 04/21/19 04:58 Carbon Dioxide 26 mmol/L (22-32) 04/21/19 04:58 Anion Gap 8 mmol/L (2-11) 04/21/19 04:58 BUN 17 mg/dL (6-24) 04/21/19 04:58 Creatinine 0.74 mg/dL (0.51-0.95) 04/21/19 04:58 Est GFR ( Amer) 93.1 (>60) 04/21/19 04:58 Est GFR (Non-Af Amer) 76.9 (>60) 04/21/19 04:58 BUN/Creatinine Ratio 23.0 (8-20) H 04/21/19 04:58 Glucose 123 mg/dL (70-100) H 04/21/19 04:58 Calcium 9.2 mg/dL (8.6-10.3) 04/21/19 04:58 Total Bilirubin 0.40 mg/dL (0.2-1.0) 04/18/19 17:55 AST 20 U/L (13-39) 04/18/19 17:55 ALT 16 U/L (7-52) 04/18/19 17:55 Alkaline Phosphatase 84 U/L (34-104) 04/18/19 17:55 Total Protein 7.6 g/dL (6.4-8.9) 04/18/19 17:55 Albumin 4.3 g/dL (3.2-5.2) 04/18/19 17:55 Globulin 3.3 g/dL (2-4) 04/18/19 17:55 Albumin/Globulin Ratio 1.3 (1-3) 04/18/19 17:55 25-OH Vitamin D Total 48.8 ng/mL (20-50) 04/18/19 17:55 TSH 0.76 mcIU/mL (0.34-5.60) 04/18/19 17:55 Urine Color Yellow 04/19/19 01:50 Urine Appearance Cloudy 04/19/19 01:50 Urine pH 5.0 (5-9) 04/19/19 01:50 Ur Specific [place] 1.016 (1.010-1.030) 04/19/19 01:50 Urine Protein Negative (Negative) 04/19/19 01:50 Urine Ketones Negative (Negative) 04/19/19 01:50 Urine Blood Negative (Negative) 04/19/19 01:50 Urine Nitrate Negative (Negative) 04/19/19 01:50 Urine Bilirubin Negative (Negative) 04/19/19 01:50 Urine Urobilinogen Negative (Negative) 04/19/19 01:50 Ur Leukocyte Esterase 3+ (Negative) A 04/19/19 01:50 Urine WBC (Auto) 2+(11-20/hpf) (Absent) A 04/19/19 01:50 Urine RBC (Auto) Absent (Absent) 04/19/19 01:50 Ur Squamous Epith Cells Present (Absent) A 04/19/19 01:50 Urine Bacteria Absent (Absent) 04/19/19 01:50 Urine Glucose Negative (Negative) 04/19/19 01:50 Blood Type O Negative 04/18/19 17:55 Antibody Screen Negative 04/18/19 17:55
== END 2019-04-21 09:20 | DRG 482 ==
LOC: ED 16:16 → SSU 19:30
PROVIDERS: ADMIT Nurse Practitioner; ATTEND Hospitalist
PROC: 0QS634Z Reposition Right Upper Femur with Internal Fixation Device, Percutaneous Approach (ICD-10-PCS; principal; 2019-04-19 15:30)
DX: S72.001A Fracture of unspecified part of neck of right femur, initial encounter for closed fracture (principal); G20 Parkinson's disease; E03.9 Hypothyroidism, unspecified; I10 Essential (primary) hypertension; W01.198A Fall on same level from slipping, tripping and stumbling with subsequent striking against other object, initial encounter; R00.0 Tachycardia, unspecified; K21.9 Gastro-esophageal reflux disease without esophagitis; F41.9 Anxiety disorder, unspecified; S30.810A Abrasion of lower back and pelvis, initial encounter; Y92.009 Unspecified place in unspecified non-institutional (private) residence as the place of occurrence of the external cause; Z88.1 Allergy status to other antibiotic agents; Z88.5 Allergy status to narcotic agent; Z88.0 Allergy status to penicillin; Z79.890 Hormone replacement therapy; Z88.2 Allergy status to sulfonamides; Z91.14 Patient's other noncompliance with medication regimen; Z82.49 Family history of ischemic heart disease and other diseases of the circulatory system; Z80.0 Family history of malignant neoplasm of digestive organs; Z83.2 Family history of diseases of the blood and blood-forming organs and certain disorders involving the immune mechanism; Z79.01 Long term (current) use of anticoagulants; R73.9 Hyperglycemia, unspecified; R21 Rash and other nonspecific skin eruption
CPT/HCPCS: 36415; 71045; 80048; 80053; 81003; 81015; 82306; 84443; 85014; 85018; 85027; 85049; 85610; 85730; 86850; 86900; 86901; 87077; 87086; 87186; 93005; 99283; A9270-GY; C1713; G8978-GP-CL; G8979-GP-CI; G8987-GO-CL; G8988-GO-CI; J0690; J0696; J1170; J1200; J1644; J1650; J2250; J2405; J2704; J2795; J3010; J3490

== ENCOUNTER 2019-04-21 06:56 | Inpatient (IN) | payer MEDICARE, BC ==
--- OUTSIDE RECORDS SUMMARY | 2019-04-21 09:22 | XMS REPORT | Continuity of Care Document ---
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 Group Name: BC/BS of [place] Velazquez [address] PayID: [id number] Effective: 2010 Policy Number: [id number] [facility] ANGELI Batres Expires: 2012 Group Name: BC/BS of LEYLA [address] PayID: [id number] [place] Swanson [id number] Effective: 2012 Policy Number: [id number] [facility] Group Name: Medicare Supplement [address] PayID: [id number] [place] Swanson [id number] Problems Active Problems Provider Date Shoulder joint pain Ondina Paul M.D. Onset: 10/01/2011 Hypothyroidism Ondina Paul M.D. 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 Tobacco Use Start: Unknown Never Smoked Cigarettes Smoking Status Reviewed: 06/10/18 Never Smoked Cigarettes ETOH Use Occasionally consumes alcohol Tobacco Use Start: Unknown Patient has never smoked Recreational Drug Use Denies Drug Use Enjoy Exercising Enjoys exercising Madhav Chi Allergies, Adverse Reactions, Alerts Active Allergies Reaction Severity Comments Date Penicillin 12/19/2005 Sulfa 12/19/2005 Medications Active Medications SIG Qnty Indications Ordering Date Provider Walker 2 wheeled walker, 1units Rao Negro 04/17/2019 Misc use for Storm, [employer] ambulation Levothyroxine Sodium Take One Tablet 30tabs Viralnti RElly 01/24/2019 By Mouth Every Storm, [employer] 125mcg Tablets Morning On An Empty Stomach Omeprazole 1 by mouth every 90caps Malorie Amor, 06/04/2017 40mg day [employer] Capsules DR Tarsha Amor, 12/31/2016 Capsules [employer] Blood Pressure Use to monitor 1Cuff Malorie Amor, 07/12/2015 Monitor Automatic blood pressure [employer] With Large Cuff daily or as Kit needed Zoloft take one tablet 90tabs Gregg 02/21/2013 25mg Tablets by mouth every MD Dianne day Aspirin Take One Daily. 100units Ondina Jenkins 10/23/2004 81mg Ec Deniz Paul M.D. Citrucel 2 tabs po daily Unknown Tablets Multi For Her 50+ daily Unknown Tablets History Medications Multi For Him 50+ Malorie Amor, 12/31/2016 - [employer] 01/13/2017 Tablets Diflucan 1 tab by mouth once 1tabs Gregg 02/22/2016 - 150mg MD Dianne 12/31/2016 Tablets Moxifloxacin HCL 1 tab PO qd X 7 days 7tabs Malorie Amor, 02/12/2016 - [employer] 12/31/2016 400mg Tablets Cipro 1 tab by mouth twice 20tabs K57.32 Gregg 02/11/2016 - 500mg Tablets a day for MD Dianne 12/31/2016 diverticulitis Flagyl take 1 tablet by 30tabs K57.32 Gregg 02/11/2016 - 500mg Tablets mouth every 8 hours MD Dianne 12/31/2016 for 10 days for infection Hyoscyamine Sulfate dissolve 1 under the 30tabs 562.11 [facility] 2013 - tongue every 15 [facility] 06/19/2015 0.125mg Tablets minutes if needed for Dispers stomach pain, max daily dose is 6 tablets Metronidazole 1 by mouth three 30tabs 562.11 [facility] 04/06/2014 - 500mg times a day for 10 [facility] 06/19/2015 Tablets days Ciprofloxacin HCL 1 by mouth twice a 20tabs 562.11 [facility] 04/06/2014 - day for infection [facility] 06/19/2015 500mg Tablets [facility] 125mcg mouth in the morning [facility] 01/24/2019 Tablets on an empty stomach Zoloft 1 po qd 30tabs Nelly Tamez, 02/21/2013 - 50mg Tablets Sandeep Tse 02/21/2013 Omeprazole Take One Capsule By 30cap Malorie Amor, 02/08/2013 - 20mg Mouth Daily [facility] 06/04/[address] Rowe one po bid for 10 20tabs 562.11 Ondina Jenkins 11/19/2012 - 500mg Tablets days Carmencita Paul 01/03/2013 Metronidazole one po bid for 10 20tabs 562.11 Ondina Jenkins 11/19/2012 - 500mg days Carmencita Paul 01/03/2013 Tablets Ciloxan 2 drops each eye qid 1units Kay Dover 05/18/2011 - 0.3% Solution x 5-7 days Carmencita Grajeda 12/09/2011 Estrace apply 11/17 applicator 45G 616.10 Ondina Jenkins 03/13/2010 - 0.1mg/GM daily for one week, Carmencita Paul 12/09/2011 Cream and then tiw prn vaginal dryness Synthroid one po qd 90tabs Malorie Amor, 10/19/2007 - 100mcg [employer] 03/09/2014 Tablets Keflex 1 po bid 20caps 562.10 Ondina Jenkins 06/24/2006 - 500mg Capsules Carmencita Paul 12/02/2006 Diflucan 1 tablet once prn 1tabs Ondina Jenkins 04/10/2006 - 150mg Carmencita Paul 04/12/2006 Tablets Cipro one po bid for 10 20tabs Kay Dover 03/28/2006 - 500mg Tablets days Blegen, M.DElly 06/08/2006 Metronidazole one po bid for 10 20tabs Kay PElly 03/28/2006 - 500mg days Blegen, M.DElly 06/08/2006 Tablets Zithromax Z-Jigar two po qd the first 6tabs 461.0 Elgin Balderrama, 2005 - 250mg and then one po qd Claire.DElly 12/26/2005 Tablets for 4 days Zoloft one po qd 90tabs 300.02 Ondina Jenkins 10/23/2004 - 25mg Tablets Carmencita Paul 02/21/2013 Zoloft one po qd 30tabs 300.02 Rochelle AElly 04/22/2004 - 50mg Tablets Omega, 10/23/2004 [facility] Zithromax 2 on day one, then 6tabs Kay PElly 02/20/2004 - 250mg one qd x4 days Blegen, M.DElly 04/26/2004 Tablets Diflucan one po x1 prn yeast 1tabs Kay PElly 02/20/2004 - 150mg infection Blegen, M.D. 04/26/2004 Tablets Nitroglycerin SL one sl q 5 min x 3 100unit 786.50 Ondina Jenkins 2002 - prn chest pain. david Paul M.D. 10/23/2004 0.4mg Ibuprofen Tablets one po qid prn 100unit 716.90 Ondina Jenkins 06/23/2003 - s Carmenctia Paul 06/08/2006 600mg Zoloft one qd for 3 weeks 21tabs Ondina Jenkins 06/23/2003 - 25mg Tablets after tapering to 50 Carmencita Paul 04/26/2004 mg qd for 3 weeks Zoloft One qd 21tabs Ondina Jenkins 06/23/2003 - 50mg Tablets Carmencita Paul 06/23/2003 Gentamycin Ophth 2 drops qid until 5ml Endermis Hernández, 03/31/2003 - radha Tse 10/23/2004 3mg/ml Solution Synthyroid 1 po qday 90units Ondina Jenkins 06/21/2002 - O.1mg Carmencita Paul 10/19/2007 Zoloft One qd 100tabs Ondina Jenkins 01/12/2002 - 100mg Tablets Carmencita Paul 06/23/2003 Wrist Splint wear with wrist use 1units 719.44 Ondina Jenkins - Right Carmencita Paul 03/25/2011 Immunizations CPT Code Status Date Vaccine Lot # [id number] Given 08/27/2018 Influenza Vaccine High Dose PF [id number] 08199 Given 08/11/2017 Influenza Vaccine High Dose PF [id number] 62858 Given 08/11/2016 Influenza Virus Vaccine, Quadrivalent, 3 Yr > [id number] Quad, Preserv Free 59749 Given 08/16/2015 Influenza Virus Vaccine, Quadrivalent, 3 Yr > [id number] Quad, Preserv Free 31158 Given 06/19/2015 Prevnar-13 Pneumococcal Conjugate Vaccine [id number] 63457 Given 08/08/2014 Influenza Virus Vaccine, Quadrivalent, 3 Yr > [id number] Quad, Preserv Free 77209 Given 08/20/2012 Influenza Vaccine-Preservative Free 3 Yrs And [id number] Above 56082 Given 12/09/2011 Pneumovax 23 (PPSV23) 65+ years or high risk 2 [id number] to 64 year old 51914 Given 08/18/2011 Zoster Vaccine [id number] 48473 Given 08/14/2011 Influenza Vaccine-Preservative Free 3 Yrs And [id number] Above 81828 Given 08/27/2010 Influenza Vaccine-Preservative Free 3 Yrs And [id number] Above 25293 Given 03/13/2010 Tdap (Adacel) [id number] 37593 Given 08/31/2007 Influenza Virus Vaccine, 3 Yrs And Above [id number] 03594 Given 09/03/2006 Influenza Virus Vaccine, 3 Yrs And Above [id number] 82471 Given 09/19/2005 Influenza Virus Vaccine, 3 Yrs And Above [id number] 72132 Given 10/31/2004 Influenza Virus Vaccine, 3 Yrs And Above 23363 Given 09/08/2003 Influenza Virus Vaccine, 3 Yrs And Above 20480 Given 09/13/2002 Influenza Virus Vaccine, 3 Yrs And Above 52669 Given 09/20/2001 Influenza Virus Vaccine, 3 Yrs And Above 86811 Given 10/14/2000 Influenza Virus Vaccine, 3 Yrs And Above 57522 Given 12/16/1999 DT (Adult) 48813 Given 09/03/1999 Influenza Virus Vaccine, 3 Yrs And Above 09489 Given 09/04/1997 Influenza Virus Vaccine 64954 Given 08/17/1993 Influenza Virus Vaccine Vital Signs Date Vital Result Comment 04/18/2019 1:59pm BP Systolic 138 mmHg BP Diastolic 80 mmHg Heart Rate 76 /min Body Temperature 98.6 F Respiratory Rate 16 /min O2 % BldC Oximetry 97 % 06/10/2018 8:11am Weight 129.00 lb Weight 58.514 kg BP Systolic 140 mmHg BP Diastolic 82 mmHg Heart Rate 96 /min Body Temperature 98.4 F Respiratory Rate 16 /min Height 63.5 inches 5'3.50" BMI (Body Mass Index) 22.5 kg/m2 01/13/2017 8:57am Weight 132.00 lb Weight 59.875 kg BP Systolic 140 mmHg BP Diastolic 68 mmHg Heart Rate 76 /min Body Temperature 97.7 F O2 % BldC Oximetry 97 % 12/31/2016 8:08am Weight 131.00 lb Weight 59.422 kg BP Systolic 136 mmHg BP Diastolic 76 mmHg Heart Rate 88 /min Body Temperature 97.3 F Respiratory Rate 16 /min Height 64 inches 5'4" BMI (Body Mass Index) 22.5 kg/m2 O2 % BldC Oximetry 97 % 02/11/2016 10:31am Weight 137.00 lb Weight 62.143 kg BP Systolic 150 mmHg BP Diastolic 81 mmHg Heart Rate 104 /min Body Temperature 98.4 F 09/21/2015 8:49am Weight 141.00 lb Weight 63.958 kg BP Systolic 148 mmHg BP Diastolic 80 mmHg Heart Rate 72 /min 07/12/2015 11:12am BP Systolic 124 mmHg BP Diastolic 72 mmHg 07/10/2015 9:35am BP Systolic 140 mmHg BP Diastolic 80 mmHg 07/06/2015 1:40pm BP Systolic 118 mmHg BP Diastolic 70 mmHg 07/05/2015 9:48am BP Systolic 140 mmHg BP Diastolic 72 mmHg 06/19/2015 8:04am Weight 140.00 lb Weight 63.504 kg BP Systolic 150 mmHg BP Diastolic 80 mmHg Heart Rate 72 /min Height 64.5 inches 5'4.50" BMI (Body Mass Index) 23.7 kg/m2 04/06/2014 1:56pm Weight 135.00 lb Weight 61.236 kg BP Systolic 138 mmHg BP Diastolic 78 mmHg Heart Rate 88 /min Body Temperature 99.0 F 02/21/2014 8:07am Weight 137.00 lb Weight 62.143 kg BP Systolic 136 mmHg BP Diastolic 72 mmHg Heart Rate 72 /min Height 63.5 inches 5'3.50" BMI (Body Mass Index) 23.9 kg/m2 02/08/2013 8:09am Weight 129.00 lb Weight 58.514 kg BP Systolic 110 mmHg BP Diastolic 80 mmHg Heart Rate 88 /min Height 63.5 inches 5'3.50" BMI (Body Mass Index) 22.5 kg/m2 11/19/2012 10:44am Weight 133.00 lb Weight 60.329 kg BP Systolic 118 mmHg BP Diastolic 74 mmHg Heart Rate 96 /min Body Temperature 98.1 F 12/09/2011 10:29am Weight 136.00 lb Weight 61.690 kg BP Systolic 128 mmHg BP Diastolic 74 mmHg Heart Rate 96 /min Height 64.5 inches 5'4.50" BMI (Body Mass Index) 23.0 kg/m2 08/27/2010 12:38pm Weight 137.00 lb Weight 62.143 kg BP Systolic 140 mmHg BP Diastolic 80 mmHg Heart Rate 76 /min Body Temperature 97.8 F 05/21/2010 9:09am Weight 136.00 lb Weight 61.690 kg BP Systolic 118 mmHg BP Diastolic 68 mmHg Heart Rate 88 /min Body Temperature 98.6 F Right Visual Acuity Distance 20/20 Left Visual Acuity Distance 20/20 Both Visual Acuity Distance 20/20 Last Menstrual Period 0 03/13/2010 9:10am Weight 136.00 lb Weight 61.690 kg BP Systolic 128 mmHg BP Diastolic 80 mmHg Heart Rate 72 /min Height 64 inches 5'4" BMI (Body Mass Index) 23.3 kg/m2 02/20/2009 10:25am Weight 134.00 lb Weight 60.782 kg BP Systolic 120 mmHg BP Diastolic 78 mmHg Heart Rate 76 /min Height 64 inches 5'4" BMI (Body Mass Index) 23.0 kg/m2 12/15/2007 10:05am BP Systolic 126 mmHg BP Diastolic 70 mmHg Heart Rate 102 /min Height 64.75 inches 5'4.75" 11/17/2007 9:29am Weight 131.00 lb Weight 59.422 kg BP Systolic 120 mmHg BP Diastolic 70 mmHg Heart Rate 68 /min Height 64.75 inches 5'4.75" BMI (Body Mass Index) 22.0 kg/m2 06/24/2006 12:52pm Weight 132.00 lb Weight 59.875 kg BP Systolic 112 mmHg BP Diastolic 68 mmHg Heart Rate 76 /min Body Temperature 97.3 F Height 64.5 inches 5'4.50" BMI (Body Mass Index) 22.3 kg/m2 06/08/2006 11:57am Weight 133.50 lb Weight 60.556 kg BP Systolic 130 mmHg BP Diastolic 80 mmHg Heart Rate 76 /min Height 64.5 inches 5'4.50" BMI (Body Mass Index) 22.6 kg/m2 04/07/2006 9:46am Weight 135.00 lb Weight 61.236 kg BP Systolic 130 mmHg BP Diastolic 70 mmHg Height 65 inches 5'5" BMI (Body Mass Index) 22.5 kg/m2 03/31/2006 9:06am Weight 135.00 lb Weight 61.236 kg BP Systolic 110 mmHg BP Diastolic 62 mmHg Body Temperature 97.8 F Height 65 inches 5'5" BMI (Body Mass Index) 22.5 kg/m2 03/28/2006 11:00am Weight 135.00 lb Weight 61.236 kg BP Systolic 110 mmHg BP Diastolic 80 mmHg Body Temperature 98.3 F Height 65 inches 5'5" BMI (Body Mass Index) 22.5 kg/m2 12/19/2005 2:25pm Weight 140.00 lb Weight 63.504 kg BP Systolic 122 mmHg BP Diastolic 82 mmHg Body Temperature 96.8 F Height 65 inches 5'5" BMI (Body Mass Index) 23.3 kg/m2 04/23/2005 1:49pm Weight 143.00 lb Weight 64.865 kg BP Systolic 124 mmHg BP Diastolic 80 mmHg Heart Rate 80 /min Respiratory Rate 18 /min Height 65 inches 5'5" BMI (Body Mass Index) 23.8 kg/m2 10/23/2004 3:10pm Weight 142.00 lb Weight 64.411 kg BP Systolic 120 mmHg BP Diastolic 80 mmHg 04/22/2004 4:05pm Weight 145.00 lb Weight 65.772 kg BP Systolic 110 mmHg BP Diastolic 70 mmHg 04/19/2004 9:28am BP Systolic 122 mmHg BP Diastolic 80 mmHg 02/20/2004 4:11pm Weight 141.00 lb Weight 63.958 kg BP Systolic 132 mmHg BP Diastolic 80 mmHg Heart Rate 74 /min Body Temperature 97.2 F 06/23/2003 9:00am Weight 145.00 lb Weight 65.772 kg BP Systolic 122 mmHg BP Diastolic 80 mmHg Heart Rate 76 /min Respiratory Rate 18 /min Height 64.5 inches BMI (Body Mass Index) 24.5 kg/m2 04/18/2002 10:47am Weight 144.50 lb BP Systolic 114 mmHg BP Diastolic 68 mmHg Heart Rate 80 /min Height 65 inches BMI (Body Mass Index) 24.1 kg/m2 Results Test Date Facility Test Result H/L Range Note CBC No Diff 04/18/2019 [facility] White Blood 6.6 10^ 3/uL N 3.5-10.8 [phone] Count Red Blood Count 5.10 10^6/uL High 3.70-4.87 Hemoglobin 14.3 g/dL N 12.0-16.0 Hematocrit 42 % N 35-47 Mean Corpuscular Volume 83 fL N 80-97 Mean Corpuscular Hemoglobin 28 pg N 27-31 Mean Corpuscular HGB Conc 34 g/dL N 31-36 Red Cell Distribution Width 14 % N 10.5-15 Platelet Count 223 10^3/uL N 150-450 Mean Platelet Volume 7.1 fL Low 7.4-10.4 Comp Metabolic Panel 04/18/2019 [facility] Sodium 138 mmol/L N 135-145 [phone] Potassium 3.7 mmol/L N 3.5-5.0 Chloride 103 mmol/L N 101-111 Co2 Carbon Dioxide 24 mmol/L N 22-32 Anion Gap 11 mmol/L N 2-11 Glucose 131 mg/dL High 70-100 Blood Urea Nitrogen 20 mg/dL N 6-24 Creatinine 0.78 mg/dL N 0.51-0.95 BUN/Creatinine Ratio 25.6 High 8-20 Calcium 9.8 mg/dL N 8.6-10.3 Total Protein 7.6 g/dL N 6.4-8.9 Albumin 4.3 g/dL N 3.2-5.2 Globulin 3.3 g/dL N 2-4 Albumin/Globulin Ratio 1.3 N 1-3 Total Bilirubin 0.40 mg/dL N 0.2-1.0 Alkaline Phosphatase 84 U/L N 34-104 Alt 16 U/L N 7-52 Ast 20 U/L N 13-39 Egfr Non- 72.4 >60 Egfr 87.6 >60 1 Inr/Protime 04/18/2019 [facility] Inr 1.09 N 0.82- 1.09 2 [phone] Laboratory test 04/18/2019 [facility] Partial 31.4 seconds N 26.0-38.0 finding [phone] Thrombo Time PTT TSH (Thyroid Stimulating Horm) 0.76 mcIU/mL N 0.34-5.60 Vitamin D Total 25(Oh) 48.8 ng/mL N 20-50 3 Type & Screen 04/18/2019 [facility] Antibody Screen NEGATIVE [phone] Patient Blood Type O Negative Laboratory test 08/02/2018 [facility] TSH (Thyroid 0.44 N 0.34-5.60 finding [phone] Stimulating mcIU/mL Horm) Free T4 1.15 ng/dL High 0.61-1.12 Vitamin B12 592 pg/mL N 180-914 4 Folate > 20.00 ng/mL >3.99 Ceruloplasmin 31.0 mg/dL 5 Copper, Serum 1.38 g/mL 0.75-1.45 6 Liver Function 06/10/2018 [facility] Direct 0.10 mg/ dL N 0.03-0.18 Panel [phone] Bilirubin Indirect Bilirubin 0.3 mg/dL N 0.3-1.0 Laboratory 06/10/2018 [facility] TSH (Thyroid Stim 0.35 N 0.34-5.60 7 test finding [phone] Horm) mcIU/mL Lipid Profile 06/10/2018 [facility] Triglycerides 150 mg/dL 8 (Trig/Chol/HDL [phone] ) Cholesterol 198 mg/dL 9 HDL Cholesterol 46.6 mg/dL 10 LDL Cholesterol 121 mg/dL 11 Comp Metabolic Panel 06/10/2018 [facility] Sodium 138 mmol/L N 135-145 [phone] Potassium 4.1 mmol/L N 3.5-5.0 Chloride 102 mmol/L N 101-111 Co2 Carbon Dioxide 28 mmol/L N 22-32 Anion Gap 8 mmol/L N 2-11 Glucose 109 mg/dL High 70-100 Blood Urea Nitrogen 19 mg/dL N 6-24 Creatinine 0.94 mg/dL N 0.51-0.95 BUN/Creatinine Ratio 20.2 High 8-20 Calcium 9.4 mg/dL N 8.6-10.3 Total Protein 6.9 g/dL N 6.4-8.9 Albumin 4.4 g/dL N 3.2-5.2 Globulin 2.5 g/dL N 2-4 Albumin/Globulin Ratio 1.8 N 1-3 Total Bilirubin 0.40 mg/dL N 0.2-1.0 Alkaline Phosphatase 69 U/L N 34-104 Alt 32 U/L N 7-52 Ast 31 U/L N 13-39 Egfr Non- 58.5 >60 Egfr 70.8 >60 12 CBC Auto Diff 06/10/2018 [facility] White Blood 4.3 10^3/uL N 3.5-10.8 [phone] Count Red Blood Count 5.12 10^6/uL N 4.00-5.40 Hemoglobin 14.6 g/dL N 12.0-16.0 Hematocrit 43 % N 35-47 Mean Corpuscular Volume 83 fL N 80-97 Mean Corpuscular Hemoglobin 28 pg N 27-31 Mean Corpuscular HGB Conc 34 g/dL N 31-36 Red Cell Distribution Width 13 % N 10.5-15 Platelet Count 207 10^3/uL N 150-450 Mean Platelet Volume 7.9 um3 N 7.4-10.4 Abs Neutrophils 2.5 10^3/uL N 1.5-7.7 Abs Lymphocytes 1.2 10^3/uL N 1.0-4.8 Abs Monocytes 0.4 10^3/uL N 0-0.8 Abs Eosinophils 0.1 10^3/uL N 0-0.6 Abs Basophils 0 10^3/uL N 0-0.2 Abs Nucleated RBC 0 10^3/uL Granulocyte % 59.2 % N 38-83 Lymphocyte % 28.4 % N 25-47 Monocyte % 9.6 % High 0-7 Eosinophil % 2.1 % N 0-6 Basophil % 0.7 % N 0-2 Nucleated Red Blood Cells % 0.1 Laboratory test 06/30/2017 [facility] Clotest SEE RESULT 13 finding [phone] BELOW Laboratory test 06/30/2017 [facility] Surgical SEE RESULT 14, 15 finding [phone] Interface BELOW Order Liver Function 05/28/2017 [facility] Total Protein 7.0 g/dL N 6.4-8 Panel [phone] Albumin 4.3 g/dL N 3.2-5.2 Globulin 2.7 g/dL N 2-4 Albumin/Globulin Ratio 1.6 N 1-3 Total Bilirubin 0.50 mg/dL N 0.2-1.0 Direct Bilirubin 0.10 mg/dL N 0.03-0.18 Indirect Bilirubin 0.4 mg/dL N 0.3-1.0 Alkaline Phosphatase 66 U/L N 34-104 Alt 63 U/L High 7-52 Ast 54 U/L High 13-39 Liver Function 02/24/2017 [facility] Total Protein 7.2 g/dL N 6.4-8.9 Panel [phone] Albumin 4.4 g/dL N 3.2-5.2 Globulin 2.8 g/dL N 2-4 Albumin/Globulin Ratio 1.6 N 1-3 Total Bilirubin 0.50 mg/dL N 0.2-1.0 Direct Bilirubin 0.10 mg/dL N 0.03-0.18 Indirect Bilirubin 0.4 mg/dL N 0.3-1.0 Alkaline Phosphatase 75 U/L N 34-104 Alt 60 U/L High 7-52 Ast 52 U/L High 13-39 Hepatitis 02/24/2017 [facility] Hepatitis B Nonreactive N Nonreactive Acute Panel [phone] Surface Antigen Hepatitis B Core IgM Nonreactive N Nonreactive Hepatitis A AB IgM Nonreactive N Nonreactive Hepatitis C Antibody Nonreactive N Nonreactive Laboratory test 01/13/2017 [facility] Surgical SEE RESULT 16 finding [phone] Pathology BELOW CBC Auto Diff 12/31/2016 [facility] White Blood 5.3 10^3/uL N 3.5-10 [phone] Count .8 Red Blood Count 5.30 10^6/uL N 4.0-5.4 Hemoglobin 14.8 g/dL N 12.0-16.0 Hematocrit 45 % N 35-47 Mean Corpuscular Volume 84 fL N 80-97 Mean Corpuscular Hemoglobin 28 pg N 27-31 Mean Corpuscular HGB Conc 33 g/dL N 31-36 Red Cell Distribution Width 13 % N 10.5-15 Platelet Count 207 10^3/uL N 150-450 Mean Platelet Volume 9 um3 N 7.4-10.4 Abs Neutrophils 3.2 10^3/uL N 1.5-7.7 Abs Lymphocytes 1.5 10^3/uL N 1.0-4.8 Abs Monocytes 0.5 10^3/uL N 0-0.8 Abs Eosinophils 0.1 10^3/uL N 0-0.6 Abs Basophils 0 10^3/uL N 0-0.2 Abs Nucleated RBC 0 10^3/uL N Granulocyte % 60.2 % N 38-83 Lymphocyte % 28.7 % N 25-47 Monocyte % 8.8 % N 1-9 Eosinophil % 1.7 % N 0-6 Basophil % 0.6 % N 0-2 Nucleated Red Blood Cells % 0.1 N Comp Metabolic Panel 12/31/2016 [facility] Sodium 136 mmol/L N 133-145 [phone] Potassium 4.3 mmol/L N 3.5-5.0 Chloride 100 mmol/L Low 101-111 Co2 Carbon Dioxide 28 mmol/L N 22-32 Anion Gap 8 mmol/L N 2-11 Glucose 93 mg/dL N 70-100 Blood Urea Nitrogen 20 mg/dL N 6-24 Creatinine 0.84 mg/dL N 0.51-0.95 BUN/Creatinine Ratio 23.8 High 8-20 Calcium 9.8 mg/dL N 8.6-10.3 Total Protein 7.3 g/dL N 6.4-8.9 Albumin 4.6 g/dL N 3.2-5.2 Globulin 2.7 g/dL N 2-4 Albumin/Globulin Ratio 1.7 N 1-3 Total Bilirubin 0.50 mg/dL N 0.2-1.0 Alkaline Phosphatase 73 U/L N 34-104 Alt 72 U/L High 7-52 Ast 53 U/L High 13-39 Egfr Non- 67.0 N >60 Egfr 86.2 N >60 17 Lipid Profile 12/31/2016 [facility] Triglycerides 202 mg/dL N 18 (Trig/Chol/HDL) [phone] Cholesterol 195 mg/dL N 19 HDL Cholesterol 45.8 mg/dL N 20 LDL Cholesterol 109 mg/dL N 21 Laboratory test 12/31/2016 [facility] TSH (Thyroid 0.43 mcIU/mL N 0.34-5.60 22 finding [phone] Stim Horm) T3 Total 1.10 ng/mL N 0.87-1.78 23 Free T4 (Free Thyroxine) 1.18 ng/dL High 0.61-1.12 24 Urine DIP 12/31/2016 [facility] Leukocytes ++ Neg (607)- - Urine Nitrites NEG Neg Urobilinogen NORM Norm Total Protein, Urine NEG Neg Urine pH 5 5-6 Urine Blood TRACE Neg Specific [place] 1.02 1.01-1.02 Urine Ketones NEG Neg Urine Bilirubin NEG Neg Urine Glucose NORM Norm Urine DIP 02/11/2016 [facility] House [facility] Leukocytes ++ Neg (607)- - Urine Nitrites neg Neg Urobilinogen norm Norm Total Protein, Urine 7 High Neg Urine pH 5 5-6 Urine Blood neg Neg Specific [place] 1.050 High 1.01-1.02 Urine Ketones neg Neg Urine Bilirubin neg Neg Urine Glucose norm Norm Laboratory test 06/19/2015 [facility] Cytology SEE RESULT 25 finding [phone] BELOW HPV Rna Ww/Reflex Genotype Negative N Negative 26 Lipid Profile 06/19/2015 [facility] Triglycerides 128 mg/dL N 27 (Trig/Chol/HDL) [phone] Cholesterol 183 mg/dL N 28 HDL Cholesterol 44.0 mg/dL N 29 LDL Cholesterol 113 mg/dL N 30 CBC Auto 06/19/2015 [facility] White Blood 4.7 10^3/ uL Low 4.8-10.8 Diff [phone] Count Red Blood Count 5.08 10^6/uL N 4.0-5.4 Hemoglobin 14.7 g/dL N 12.0-16.0 Hematocrit 45 % N 35-47 Mean Corpuscular Volume 88 fL N 80-97 Mean Corpuscular Hemoglobin 29 pg N 27-31 Mean Corpuscular HGB Conc 33 g/dL N 31-36 Red Cell Distribution Width 13 % N 10.5-15 Platelet Count 196 10^3/uL N 150-450 Mean Platelet Volume 8 um3 N 7.4-10.4 Abs Neutrophils 2.6 10^3/uL N 1.5-7.7 Abs Lymphocytes 1.5 10^3/uL N 1.0-4.8 Abs Monocytes 0.4 10^3/uL N 0-0.8 Abs Eosinophils 0.1 10^3/uL N 0-0.6 Abs Basophils 0 10^3/uL N 0-0.2 Abs Nucleated RBC 0 10^3/uL N Granulocyte % 55.6 % N 38-83 Lymphocyte % 32.4 % N 25-47 Monocyte % 9.3 % High 1-9 Eosinophil % 2.2 % N 0-6 Basophil % 0.5 % N 0-2 Nucleated Red Blood Cells % 0.1 N Comp Metabolic Panel 06/19/2015 [facility] Sodium 139 mmol/L N 133-145 [phone] Potassium 4.2 mmol/L N 3.5-5.0 Chloride 105 mmol/L N 101-111 Co2 Carbon Dioxide 28 mmol/L N 22-32 Anion Gap 6 mmol/L N 2-11 Glucose 109 mg/dL High 70-100 Blood Urea Nitrogen 17 mg/dL N 6-24 Creatinine 0.86 mg/dL N 0.51-0.95 BUN/Creatinine Ratio 19.8 N 8-20 Calcium 9.4 mg/dL N 8.6-10.3 Total Protein 7.1 g/dL N 6.4-8.9 Albumin 4.6 g/dL N 3.2-5.2 Globulin 2.5 g/dL N 2-4 Albumin/Globulin Ratio 1.8 N 1-3 Total Bilirubin 0.40 mg/dL N 0.2-1.0 Alkaline Phosphatase 63 U/L N 34-104 Alt 46 U/L N 7-52 Ast 37 U/L N 13-39 Egfr Non- 65.4 N >60 Egfr 84.1 N >60 31 Laboratory test 06/19/2015 [facility] TSH (Thyroid 1.21 ?IU/mL N 0.34-5.60 finding [phone] Stim Horm) Vitamin B12 528 pg/mL N 180-914 32 Urine DIP 06/19/2015 In House Lab Specific [place] 1.020 1.01-1.02 (607)- - Urine pH 5 5-6 Leukocytes NEG Neg Urine Nitrites NEG Neg Total Protein, Urine NEG Neg Urine Glucose NORM Norm Urine Ketones NEG Neg Urobilinogen NORM Norm Urine Bilirubin NEG Neg Urine Blood NEG Neg CBC Auto 08/08/2014 [facility] [facility] White Blood 4.5 10^3/ uL Low 4.8-10.8 Diff [phone] Count Red Blood Count 4.79 10^6/uL N 4.0-5.4 Hemoglobin 13.9 g/dL N 12.0-16.0 Hematocrit 41 % N 35-47 Mean Corpuscular Volume 85 fL N 80-97 Mean Corpuscular Hemoglobin 29 pg N 27-31 Mean Corpuscular HGB Conc 34 g/dL N 31-36 Red Cell Distribution Width 13 % N 10.5-15 Platelet Count 190 10^3/uL N 150-450 Mean Platelet Volume 8 um3 N 7.4-10.4 Abs Neutrophils 2.9 10^3/uL N 1.5-7.7 Abs Lymphocytes 1.2 10^3/uL N 1.0-4.8 Abs Monocytes 0.4 10^3/uL N 0-0.8 Abs Eosinophils 0.1 10^3/uL N 0-0.6 Abs Basophils 0 10^3/uL N 0-0.2 Abs Nucleated RBC 0 10^3/uL N Granulocyte % 64.1 % N 38-83 Lymphocyte % 25.4 % N 25-47 Monocyte % 7.8 % N 1-9 Eosinophil % 2.3 % N 0-6 Basophil % 0.4 % N 0-2 Nucleated Red Blood Cells % 0 N Laboratory test 08/08/2014 [facility] TSH (Thyroid 0.35 IU/mL N 0.34-5.60 finding [phone] Stimulating Horm) Vitamin B12 407 pg/mL N 180-914 33 Comp Metabolic Panel 08/08/2014 [facility] Sodium 137 mmol/L N 133-145 [phone] Potassium 3.8 mmol/L N 3.7-5.6 Chloride 102 mmol/L N 101-111 Co2 Carbon Dioxide 29 mmol/L N 22-32 Anion Gap 6 mmol/L N 2-11 Glucose 110 mg/dL High 70-100 Blood Urea Nitrogen 18 mg/dL N 6-24 Creatinine 0.82 mg/dL N 0.51-0.95 BUN/Creatinine Ratio 22.0 High 8-20 Calcium 9.2 mg/dL N 8.6-10.3 Total Protein 7.1 g/dL N 6.4-8.9 Albumin 4.4 g/dL N 3.2-5.2 Globulin 2.7 g/dL N 2-4 Albumin/Globulin Ratio 1.6 N 1-3 Total Bilirubin 0.40 mg/dL N 0.2-1.0 Alkaline Phosphatase 78 U/L N 34-104 Alt 40 U/L N 7-52 Ast 34 U/L N 13-39 Egfr Non- 69.3 N >60 Egfr 89.2 N >60 34 Lipid Profile 08/08/2014 [facility] Triglycerides 136 mg/dL N 35 (Trig/Chol/HDL) [phone] Cholesterol 173 mg/dL N 36 HDL Cholesterol 42.4 mg/dL N 37 LDL Cholesterol 103 mg/dL N 38 Urine DIP 04/06/2014 [facility] House [facility] Specific [place] 1.015 1.01-1.02 (607)- - Urine pH 6 5-6 Leukocytes ++ Neg Urine Nitrites NEG Neg Total Protein, Urine NEG Neg Urine Glucose NORM Norm Urine Ketones NEG Neg Urobilinogen NORM Norm Urine Bilirubin NEG Neg Urine Blood TRACE Neg CBC Auto 02/21/2014 [facility] White Blood 4.4 10^3/ uL Low 4.8-10.8 Diff [phone] Count Red Blood Count 4.87 10^6/uL 4.0-5.4 Hemoglobin 14.3 g/dL 12.0-16.0 Hematocrit 42 % 35-47 Mean Corpuscular Volume 85 fL 80-97 Mean Corpuscular Hemoglobin 29 pg 27-31 Mean Corpuscular HGB Conc 35 g/dL 31-36 Red Cell Distribution Width 13 % 10.5-15 Platelet Count 189 10^3/uL 150-450 Mean Platelet Volume 8 um3 7.4-10.4 Abs Neutrophils 2.4 10^3/uL 1.5-7.7 Abs Lymphocytes 1.4 10^3/uL 1.0-4.8 Abs Monocytes 0.4 10^3/uL 0-0.8 Abs Eosinophils 0.1 10^3/uL 0-0.6 Abs Basophils 0 10^3/uL 0-0.2 Abs Nucleated RBC 0 10^3/uL Granulocyte % 55.9 % 38-83 Lymphocyte % 31.4 % 25-47 Monocyte % 9.5 % High 1-9 Eosinophil % 2.7 % 0-6 Basophil % 0.5 % 0-2 Nucleated Red Blood Cells % 0.1 Laboratory test 02/21/2014 [facility] TSH (Thyroid 10.55 High 0.34-5.60 finding [phone] Stimulating IU/mL Horm) Vitamin B12 441 pg/mL 180-914 39 Comp Metabolic Panel 02/21/2014 [facility] Sodium 137 mmol/L 133-145 [phone] Potassium 4.1 mmol/L 3.7-5.6 Chloride 102 mmol/L 101-111 Co2 Carbon Dioxide 29 mmol/L 22-32 Anion Gap 6 mmol/L 2-11 Glucose 98 mg/dL 70-100 Blood Urea Nitrogen 20 mg/dL 6-24 Creatinine 0.90 mg/dL 0.51-0.95 BUN/Creatinine Ratio 22.2 High 8-20 Calcium 9.3 mg/dL 8.6-10.3 Total Protein 7.1 g/dL 6.4-8.9 Albumin 4.7 g/dL 3.2-5.2 Globulin 2.4 g/dL 2-4 Albumin/Globulin Ratio 2.0 1-3 Total Bilirubin 0.50 mg/dL 0.2-1.0 Alkaline Phosphatase 68 U/L 34-104 Alt 33 U/L 7-52 Ast 31 U/L 13-39 Egfr Non- 62.5 >60 Egfr 80.3 >60 40 Lipid Profile 02/21/2014 [facility] Triglycerides 155 mg/dL 41 (Trig/Chol/HDL) [phone] Cholesterol 206 mg/dL 42 HDL Cholesterol 47.3 mg/dL 43 LDL Cholesterol 128 mg/dL 44 Urine DIP 02/21/2014 [facility] House [facility] Specific [place] 1.020 1.01-1.02 (607)- - Urine pH 5 5-6 Leukocytes + Neg Urine Nitrites NEG Neg Total Protein, Urine TRACE Neg Urine Glucose NORM Norm Urine Ketones NEG Neg Urobilinogen NORM Norm Urine Bilirubin NEG Neg Urine Blood TRACE Neg Laboratory test 02/08/2013 [facility] TSH (Thyroid 3.07 0.34-5.60 finding [phone] Stimulating miu/mL Horm) Urine DIP 02/08/2013 In House Lab Leukocytes ++ Neg (607)- - Urine Nitrites neg Neg Urine pH 5 5-6 Total Protein, Urine neg Neg Urine Glucose norm Norm Urine Ketones neg Neg Urobilinogen norm Norm Urine Bilirubin neg Neg Urine Blood neg Neg Specific [place] 1.025 High 1.01-1.02 Laboratory test 02/08/2013 [facility] Vitamin B12 511 pg/mL 180-914 finding [phone] Lipid Profile 02/08/2013 [facility] Triglycerides 191 mg/dL 40-200 (Trig/Chol/HDL) [phone] Cholesterol 203 mg/dL High Less than 200 HDL Cholesterol 47 mg/dL 40-60 45 Cholesterol/HDL Ratio 4.3 Average 1-4.44 LDL Cholesterol 117.8 mg/dL High Less Than 100 46 CBC Auto Diff 02/08/2013 [facility] White Blood 4.8 10^3/uL 4.8-10.8 [phone] Count Red Blood Count 5.26 10^6/uL 4.0-5.4 Hemoglobin 15.1 g/dL 12.0-16.0 Hematocrit 46 % 35-47 Mean Corpuscular Volume 87 fL 80-97 Mean Corpuscular Hemoglobin 29 pg 27-31 Mean Corpuscular HGB Conc 33 g/dL 31-36 Red Cell Distribution Width 13 % 10.5-15 Platelet Count 194 10^3/uL 150-450 Mean Platelet Volume 8 um3 7.4-10.4 Abs Neutrophils 2.9 10^3/uL 1.5-7.7 Abs Lymphocytes 1.3 10^3/uL 1.0-4.8 Abs Monocytes 0.4 10^3/uL 0-0.8 Abs Eosinophils 0.1 10^3/uL 0-0.6 Abs Basophils 0 10^3/uL 0-0.2 Abs Nucleated RBC 0 10^3/uL Granulocyte % 61.4 % 38-83 Lymphocyte % 27.3 % 25-47 Monocyte % 9.0 % 1-9 Eosinophil % 1.5 % 0-6 Basophil % 0.8 % 0-2 Nucleated Red Blood Cells % 0 Comp Metabolic Panel 02/08/2013 [facility] Sodium 140 mmol/L 133-145 [phone] Potassium 4.4 mmol/L 3.5-5.0 Chloride 103 mmol/L 101-111 Co2 Carbon Dioxide 29.0 mmol/L 22-32 Anion Gap 8.0 mmol/L 2-11 Glucose 101 mg/dL High 70-100 Blood Urea Nitrogen 17 mg/dL 6-24 Creatinine 0.90 mg/dL 0.50-1.40 BUN/Creatinine Ratio 18.9 8-20 Calcium 9.9 mg/dL 8.1-9.9 Total Protein 7.2 g/dL 6.2-8.1 Albumin 4.5 g/dL 3.2-5.2 Globulin 2.7 g/dL 2-4 Albumin/Globulin Ratio 1.7 1-3 Total Bilirubin 0.7 mg/dL 0.4-1.5 Alkaline Phosphatase 74 U/L 30-110 Alt 35 U/L 14-54 Ast 29 U/L 12-42 Egfr Non- 62.6 >60 Egfr 80.6 >60 47 Clotest 12/20/2012 [facility] Clotest (SEE NOTE) 44 [phone] Surgical Pathology 12/20/2012 [facility] S RUN DATE: 11 [phone] <SEE NOTE> Basic Metabolic 04/08/2012 [facility] Sodium 136 mmol /L 135-145 Panel [phone] Potassium 4.1 mmol/L 3.5-5.0 Chloride 105 mmol/L 101-111 Co2 (Carbon Dioxide) 25.0 mmol/L 22-32 Anion Gap 6.0 mmol/L 2-11 50 Glucose 99 mg/dL 70-100 BUN 18 mg/dL 6-24 Creatinine 0.9 mg/dL 0.50-1.40 One Over Creatinine 1.11 BUN/Creatinine Ratio 20.0 8-20 Calcium 9.0 mg/dL 8.1-9.9 eGFR Non- 62.6 > 60 eGFR 80.6 > 60 51 Laboratory test 04/08/2012 [facility] TSH 1.27 MIU/ ML 0.34-5.60 finding [phone] Thyroxine Free 1.23 ng/dL 0.61-1.24 Thyroxine 10.9 g/dL 5-12 Laboratory test 12/09/2011 [facility] Cytology ------ 52 finding [phone] <SEE NOTE> Urine DIP 12/09/2011 In House Lab Leukocytes trace Neg (607)- - Urine Nitrites neg Neg Urine pH 5 5-6 Total Protein, Urine neg Neg Urine Glucose norm Norm Urine Ketones neg Neg Urobilinogen norm Norm Urine Bilirubin neg Neg Urine Blood neg Neg Specific [place] na Low 1.01-1.02 Urine DIP 03/13/2010 In House Lab Leukocytes NEG Neg (607)- - Urine Nitrites NEG Neg Urine pH 5 5-6 Total Protein, Urine NEG Neg Urine Glucose NORM Norm Urine Ketones NEG Neg Urobilinogen NORM Norm Urine Bilirubin NEG Neg Urine Blood TRACE Neg Specific [place] N/A Low 1.01-1.02 Laboratory test 03/13/2010 [facility] Cytology ------ <SEE 53 finding [phone] NOTE> Laboratory test 02/05/2010 [facility] TSH 1.82 MIU/ ML 0.34- finding [phone] 5.60 Comp Metabolic 02/05/2010 [facility] Sodium 143 mmol/ L 135-1 Panel [phone] Potassium 4.0 mmol/L 3.5-5.0 Chloride 106 mmol/L 101-111 Co2 (Carbon Dioxide) 31.0 mmol/L 22-32 Anion Gap 6.0 mmol/L 2-11 54 Glucose 100 mg/dL 70-100 55 BUN 15 mg/dL 6-24 Creatinine 1.10 mg/dL 0.50-1.40 One Over Creatinine 0.90 BUN/Creatinine Ratio 13.6 8-20 Calcium 9.5 mg/dL 8.1-9.9 56 Total Protein 6.7 GM/DL 6.2-8.1 Albumin 4.3 GM/DL 3.2-5.2 Globulin 2.4 GM/DL 2-4 Albumin/Globulin Ratio 1.8 1-3 Bilirubin Total 0.7 mg/dL 0.4-1.5 57 Alkaline Phosphatase 76 U/L 30-110 Alt (SGPT) 22 U/L 14-54 Ast (Sgot) 23 U/L 12-42 eGFR Non- 53.3 > 60 eGFR 64.5 > 60 58 Lipid Profile 02/05/2010 [facility] Triglyceride 137 mg/dL 40-200 (Trig/Chol/HDL) [phone] Cholesterol 214 mg/dL High Less Than 200 59 High Density Lipoprotein 43 mg/dL 40-60 60 Cholesterol/HDL Ratio 4.98 AVERAGE High 1-4.44 Low Density Lipoprotein 144 mg/dL High Less Than 100 61 Laboratory test 02/20/2009 [facility] Cytology ------ <SEE 62 finding [phone] NOTE> Comp Metabolic 02/20/2009 [facility] Sodium 137 mmol/ L 135-1 Panel [phone] Potassium 3.8 mmol/L 3.5-5.0 Chloride 103 mmol/L 101-111 Co2 (Carbon Dioxide) 26.0 mmol/L 22-32 Anion Gap 8.0 mmol/L 2-11 63 Glucose 90 mg/dL 70-100 64 BUN 15 mg/dL 6-24 Creatinine 1.00 mg/dL 0.50-1.40 One Over Creatinine 1.00 BUN/Creatinine Ratio 15.0 8-20 Calcium 9.6 mg/dL 8.1-9.9 65 Total Protein 7.4 GM/DL 6.2-8.1 Albumin 4.8 GM/DL 3.2-5.2 Globulin 2.6 GM/DL 2-4 Albumin/Globulin Ratio 1.8 1-3 Bilirubin Total 0.8 mg/dL 0.4-1.5 Alkaline Phosphatase 78 U/L 30-110 Alt (SGPT) 25 U/L 14-54 Ast (Sgot) 27 U/L 12-42 Laboratory test 02/20/2009 [facility] TSH 3.84 MIU/ ML 0.34-5.60 finding [phone] CBC With 02/20/2009 [facility] White Blood 5.1 CUMM 4.8-10.8 Electronic Diff [phone] Count Red Cell Count 5.38 CUMM 4.2-5.4 Hemoglobin 15.6 g/dL 12.0-16.0 Hematocrit 46 % 35-47 Mean Corpuscular Volume 85 um3 79-97 Mean Corpuscular Hemoglob 29 pg 27-31 Mean Corpuscular HGB Cone 34 g/dL 32-36 Redcell Distribution WDTH 13 % 10.5-15 Platelet Count 220 CUMM 150-450 Mean Platelet Volume 8.0 um3 7.4-10.4 Gran % 58.4 % 38-83 Lymph % 30.7 % 25-47 Mononuclear % 8.3 % 1-9 Eosinophil % 2.0 % 0-6 Basophil % 0.6 % 0-2 Abs Lymphs 1.6 1.0-4.8 Abs Mononuclear 0.4 0-0.8 Absolute Neutrophil Count 3.0 1.5-7.7 Abs Eosinophils 0.1 0-0.6 Abs Basophils 0 0-0.2 Lipid Profile 02/20/2009 [facility] Triglyceride 134 mg/dL 40-200 (Trig/Chol/HDL) [phone] Cholesterol 241 mg/dL High Less Than 200 66 High Density Lipoprotein 55 mg/dL 40-60 67 Cholesterol/HDL Ratio 4.38 AVERAGE 1-4.44 Low Density Lipoprotein 159 mg/dL High Less Than 100 68 Laboratory test 02/20/2009 [facility] Vitamin D, 1,25 49 pg/mL 18-78 69 finding [phone] Dihydroxy Urine DIP 02/20/2009 In House Lab Leukocytes NEG Neg (607)- - Urine Nitrites NEG Neg Urine pH 5 5-6 Total Protein, Urine NEG Neg Urine Glucose NORM Norm Urine Ketones NEG Neg Urobilinogen NORM Norm Urine Bilirubin NEG Neg Urine Blood 50 High Neg Specific [place] NA Low 1.01-1.02 Urine DIP 11/17/2007 In House Lab Leukocytes trace Neg (607)- - Urine Nitrites neg Neg Urine pH 5 5-6 Total Protein, Urine neg Neg Urine Glucose norm Norm Urine Ketones neg Neg Urobilinogen norm Norm Urine Bilirubin neg Neg Urine Blood trace Neg Specific [place] n/a Low 1.01-1.02 Laboratory 11/17/2007 [facility] Cytology ----- 70 test finding [phone] <SEE NOTE> Laboratory 11/03/2007 [facility] TSH 4.53 MIU/ML 0.3 test finding [phone] 4-5 .60 Comp Metabolic 11/03/2007 [facility] One Over 1.00 Panel [phone] Creatinine Anion Gap 6.0 mmol/L 2-11 71 Albumin/Globulin Ratio 1.7 1-3 Albumin 4.5 GM/DL 3.2-5.2 Alkaline Phosphatase 68 U/L 30-110 Alt (SGPT) 21 U/L 14-54 Ast (Sgot) 24 U/L 12-42 BUN 23 mg/dL 6-24 Calcium 9.7 mg/dL 8.7-10.2 Chloride 106 mmol/L 101-111 Co2 (Carbon Dioxide) 29.0 mmol/L 22-32 Globulin 2.6 GM/DL 2-4 Glucose 105 mg/dL 70-105 Potassium 4.4 mmol/L 3.5-5.0 Sodium 141 mmol/L 135-145 Bilirubin Total 0.7 mg/dL 0.4-1.5 Total Protein 7.1 GM/DL 6.2-8.1 BUN/Creatinine Ratio 23.0 High 8-20 Creatinine 1.0 mg/dL 0.5-1.4 Urine Culture And 06/24/2006 [facility] Urine Culture NG 72 Sensitivites [phone] Sensitivi Urine DIP 06/24/2006 In House Lab Leukocytes 1+ High Neg (607)- - Urine Nitrites NEG Neg Urine pH 5 5-6 Total Protein, Urine NEG Neg Urine Glucose NORM Norm Urine Ketones NEG Neg Urobilinogen NORM Norm Urine Bilirubin NEG Neg Urine Blood 100 High Neg Specific [place] NA Low 1.01-1.02 Laboratory test 06/08/2006 [facility] Cytology ------ 73 finding [phone] <SEE NOTE> Urine DIP 06/08/2006 In House Lab Leukocytes NEG Neg (607)- - Urine Nitrites NEG Neg Urine pH 5 5-6 Total Protein, Urine NL Neg Urine Glucose NL Norm Urine Ketones NL Neg Urobilinogen NL Norm Urine Bilirubin NL Neg Urine Blood NL Neg Specific [place] N/A Low 1.01-1.02 Laboratory test finding 03/28/2006 [facility] BUN 13 mg/dL 6-24 74 [phone] TSH 2.77 MIU/ML 0.34-5.60 CBC With Manual 03/28/2006 [facility] White Blood 8.9 CUMM 4.8-10.8 Diff [phone] Count Hematocrit 44 % 35-47 Hemoglobin 15.1 g/dL 12.0-16.0 Mean Corpuscular HGB Cone 34 g/dL 32-36 Mean Corpuscular Hemoglob 29 pg 27-31 Mean Corpuscular Volume 85 um3 79-97 Mean Platelet Volume 6.7 um3 Low 7.4-10.4 Platelet Count 226 CUMM 150-450 Polysegmented Neutrophil 78 % 38-83 Red Cell Count 5.20 CUMM 4.2-5.4 Redcell Distribution WDTH 13 % 10.5-15 Absolute Neutrophil Count 7.0 Atypical Lymph 2 % 0-6 Anisocytosis SLIGHT Band Neutrophil 1 % 0-8 Basophil 1 % 0-2 Lymphocyte 10 % 5-47 Monocyte 8 % 0-13 Urine Culture And 03/28/2006 [facility] Urine Culture NG 75 Sensitivites [phone] Sensitivi Urine DIP 03/28/2006 In House Lab Leukocytes NEG Neg (607)- - Urine Nitrites NEG Neg Urine pH 5 5-6 Total Protein, Urine NEG Neg Urine Glucose NORM Norm Urine Ketones NEG Neg Urobilinogen NORM Norm Urine Bilirubin NEG Neg Urine Blood 150 High Neg Specific [place] NA Low 1.01-1.02 Laboratory test 04/23/2005 [facility] Thin Layer Pap REC'D-SEE finding [phone] W/Reflex To HPV IMAGE For ASCUS Urine DIP 04/23/2005 In House Lab Leukocytes NEG Neg (607)- - Urine Nitrites NEG Neg Urine pH 5 5-6 Total Protein, Urine NEG Neg Urine Glucose NORM Norm Urine Ketones NEG Neg Urobolinogen NORM Norm Urine Bilirubin NEG Neg Urine Blood NEG Neg Specific [place] NA Low 1.01-1.02 Laboratory test 10/23/2004 [facility] PTT (Aptt) 27.5 SEC 21.6-31.2 finding [phone] Protime 10/23/2004 [facility] Inr 1.03 76 [phone] Protime 12.2 SEC 10.8-13.2 Thyroid Panel 10/23/2004 [facility] Thyroxine 8.7 g /dL 5-12 [phone] Free Thyroxine 0.91 ng/dL 0.58-1.64 Laboratory test 10/23/2004 [facility] TSH 1.81 MIU/ ML 0.34-5.60 finding [phone] CBC With 10/23/2004 [facility] White Blood 5.4 CUMM 4.8-10.8 Electronic Diff [phone] Count Abs Basophils 0 0-0.2 Abs Eosinophils 0.1 0-0.6 Abs Grans 3.6 1.5-7.7 Abs Lymphs 1.3 1.0-4.8 Abs Mononuclear 0.4 0-0.8 Basophil % 0.4 % 0-2 Hematocrit 43 % 35-47 Hemoglobin 14.7 g/dL 12.0-16.0 Eosinophil % 2.0 % 0-6 Gran % 66.6 % 38-83 Lymph % 23.6 % 20-45 Mean Corpuscular HGB Cone 35 g/dL 32-36 Mean Corpuscular Hemoglob 29 pg 27-31 Mean Corpuscular Volume 84 um3 79-97 Mean Platelet Volume 8.0 um3 7.4-10.4 Mononuclear % 7.4 % 1-9 Platelet Count 227 CUMM 150-450 Red Cell Count 5.09 CUMM 4.2-5.4 Redcell Distribution WDTH 13 % 10.5-15 Laboratory test 04/24/2004 [facility] TSH 1.65 MIU/ ML 0.34-5.60 finding [phone] Lipid Profile 04/24/2004 [facility] Cholestero 4.45 AVERAGE High 1-4.44 (Trig/Chol/HDL) [phone] l/HDL Ratio Cholesterol 196 mg/dL Less Than 200 77 Triglyceride 175 mg/dL 40-200 High Density Lipoprotein 44 mg/dL 40-60 Low Density Lipoprotein 117 mg/dL High Less Than 100 78 CBC With 04/24/2004 [facility] White Blood 4.8 CUMM 4.8-10.8 Electronic Diff [phone] Count Abs Basophils 0 0-0.2 Abs Eosinophils 0.1 0-0.6 Abs Grans 2.5 1.5-7.7 Abs Lymphs 1.6 1.0-4.8 Abs NRBC 0 Abs Mononuclear 0.5 0-0.8 Basophil % 0 % 0-2 Hematocrit 42 % 35-47 Hemoglobin 14.0 g/dL 12.0-16.0 Eosinophil % 3.1 % 0-6 Gran % 53.2 % 38-83 Lymph % 34.2 % 20-45 Mean Corpuscular HGB Cone 33 g/dL 32-36 Mean Corpuscular Hemoglob 29 pg 27-31 Mean Corpuscular Volume 85 um3 79-97 Mean Platelet Volume 8.3 um3 7.4-10.4 NRBC % 0 % Mononuclear % 9.5 % High 1-9 Platelet Count 204 CUMM 150-450 Red Cell Count 4.91 CUMM 4.2-5.4 Redcell Distribution WDTH 13 % 10.5-15 Comp Metabolic 06/26/2003 [facility] Anion Gap 8.0 mmol/L 2-11 79 Panel [phone] Albumin/Globulin Ratio 1.7 1-3 Albumin 4.5 GM/DL 3.6-5.4 BUN 13 mg/dL 6-24 Calcium 9.7 mg/dL 8.7-10.2 Chloride 106 mmol/L 101-111 Co2 (Carbon Dioxide) 25.0 mmol/L 22-32 Creatinine 1.0 mg/dL 0.5-1.4 Globulin 2.7 GM/DL 2-4 Glucose 107 mg/dL High 70-105 Potassium 4.1 mmol/L 3.5-5.0 Sodium 139 mmol/L 135-145 Total Protein 7.2 GM/DL 6.2-8.1 BUN/Creatinine Ratio 13.0 8-20 Alkaline Phosphatase 68 U/L 30-110 Alt (SGPT) 41 U/L 14-54 Ast (Sgot) 33 U/L 12-42 Bilirubin Total 0.7 mg/dL 0.4-1.5 Laboratory test 06/26/2003 [facility] Hemoglobin A1c 5.7 % < 6.0 80 finding [phone] TSH 4.14 MIU/ML 0.34-5.60 Vitamin B12 563 pg/mL [phone] CBC With Manual 06/26/2003 [facility] Platelet Count 228 CUMM 150-450 Diff [phone] White Blood Count 4.7 CUMM Low 4.8-10.8 Hematocrit 43 % 35-47 Hemoglobin 14.3 g/dL 12.0-16.0 Mean Corpuscular HGB Cone 33 g/dL 32-36 Mean Corpuscular Hemoglob 29 pg 27-31 Mean Corpuscular Volume 86 um3 79-97 Red Cell Count 5.01 CUMM 4.2-5.4 Redcell Distribution WDTH 13 % 10.5-15 RBC Morphology NORMAL Band Neutrophil 1 % 0-8 Lymphocyte 33 % 5-47 Monocyte 2 % 0-13 Polysegmented Neutrophil 64 % 38-83 Lipid Profile 06/26/2003 [facility] Cholesterol/HDL 5.21 High 1-4.44 (Trig/Chol/HDL) [phone] Ratio AVERAGE Cholesterol 245 mg/dL High Less Than 200 81 Triglyceride 244 mg/dL High 40-200 High Density Lipoprotein 47 mg/dL 40-60 Low Density Lipoprotein 149 mg/dL High Less Than 100 82 Laboratory test 06/26/2003 [facility] PTT (Aptt) 29.9 SEC 20.6-31.5 83 finding [phone] Protime 06/26/2003 [facility] Inr 0.94 84 [phone] Protime 11.4 SEC 10.7-13.1 Laboratory test 06/23/2003 [facility] Pap Smear REC'D -SEE IMAGE finding [phone] Urine DIP 06/23/2003 In House Lab Leukocytes neg Neg (607)- - Urine Nitrites neg Neg Urine pH 5 5-6 Total Protein, Urine nl Neg Urine Glucose nl Norm Urine Ketones nl Neg Urobolinogen nl Norm Urine Bilirubin nl Neg Urine Blood nl Neg Specific [place] n/a Low 1.01-1.02 Laboratory test 12/09/2002 [facility] TSH 3.50 MIU/ ML 0.34-5.60 finding [phone] Free Thyroxine 0.90 ng/dL 0.58-1.64 T4, T3up, + 04/18/2002 [facility] T-3 Uptake 0.90 T- UPTAKEU 0.66 - 1.27 T7 [phone] T-4 Total 7.6 g/dL 4.5 - 12 Free Thyroxine Index 8.4 g/dL 6.3 - 12.4 Laboratory test 04/18/2002 [facility] Conventional Pap W/I NORMAL finding [phone] Smear LIMIT Urine DIP 04/18/2002 In House Lab Leukocytes TRACE Neg (607)- - Urine Nitrites NEG Neg Urine pH 5 5-6 Total Protein, Urine NEG Neg Urine Glucose NORM Norm Urine Ketones NEG Neg Urobolinogen NORM Norm Urine Bilirubin NEG Neg Urine Blood NEG Neg Specific [place] NA Low 1.01-1.02 Laboratory test 10/11/2001 [facility] Rheumatoid <11.0 IU/ mL 0 - 20 finding [phone] Factor (RF) Laboratory test 10/01/2001 [facility] TSH 2.33 uIU/ml 0.49 - finding [phone] (Thyrotropin) 4.67 Antinuclear AB ([place]) POSITIVE AB 85 Sedimentation Rate 2 MM/HR 0 - 20 RH Factor SEE BLOOD BANK 86 T-4 Free 1.4 ng/dL 0.7 - 1.9 T4, T3up, + T7 03/25/2001 [facility] T-4 Total 8.6 g/dL 4.5 - 12 [phone] T-3 Uptake 0.88 T-UPTAKEU 0.66 - 1.27 Free Thyroxine Index 9.8 g/dL 6.3 - 12.4 Laboratory 03/25/2001 [facility] TSH (Thyrotropin) 10.19 High 0.49 - test finding [phone] uIU/ml 4.67 Arthritis 03/25/2001 [facility] Uric Acid 3.8 mg/dL 2.0 - Panel [phone] 7.1 Sedimentation Rate 5 MM/HR 0 - 20 Antinuclear AB ([place]) NEGATIVE Rheumatoid Factor (RF) <11.0 IU/mL 0 - 20 Laboratory test 02/19/2001 [facility] T-4 Total 6.4 g/dL 4.5 - 12 finding [phone] TSH (Thyrotropin) 27.63 uIU/ml High 0.49 - 4.67 87 Laboratory 01/13/2001 [facility] TSH (Thyrotropin) 86.60 @ COR High 0.49 - 88 test finding [phone] uIU/ml 4.67 T-4 Free 0.5 ng/dL Low 0.7 - 1.9 89 1 Because ethnic data is not always readily available, this report includes an eGFR for both -Americans and non- Americans. The National Kidney Disease Education Program (NKDEP) does not endorse the use of the MDRD equation for patients that are not between the ages of 18 and 70, are , have extremes of body size, muscle mass, or nutritional status, or are non- or non-. According to the National Kidney Foundation, irrespective of diagnosis, the stage of the disease is based on the level of kidney function: Stage Description GFR(mL/min/1.73 m(2)) 1 Kidney damage with normal or decreased GFR 90 2 Kidney damage with mild decrease in GFR 60-89 3 Moderate decrease in GFR 30-59 4 Severe decrease in GFR 15-29 5 Kidney failure <15 (or dialysis) 2 Standard intensity warfarin therapeutic range: 2.0-3.0 High intensity warfarin therapeutic range: 2.5-3.5 3 Total 25-Hydroxyvitamin D2 and D3 (25-OH-VitD) <10 ng/mL (severe deficiency) 10-19 ng/mL (mild to moderate deficiency) 20-50 ng/mL (optimum levels) 51-80 ng/mL (increased risk of hypercalciuria) >80 ng/mL (toxicity possible) 4 Normal Range 180 to 914 Indeterminate Range 145 to 180 Deficient Range <145 5 REFERENCE VALUE 20.0 - 51.0 Test Performed by: [facility] - [address] [address] ADDITIONAL INFORMATION This test was developed and its performance characteristics determined by [facility] in a manner consistent with CLIA requirements. This test has not been cleared or approved by the U.S. Food and Drug Administration. Test Performed by: [facility] - [facility] [address] [place] [address] 7 [id number] FASTING 8 Desirable: <150 Borderline High: 150-199 High: 200-499 Very High: >500 9 Desirable: <200 Borderline High: 200-239 High: >239 10 Low: <40 Desirable: 40-60 High: >60 11 Desirable: <100 Near Optimal: 100-129 Borderline High: 130-159 High: 160-189 Very High: >189 12 Because ethnic data is not always readily available, this report includes an eGFR for both -Americans and non- Americans. The National Kidney Disease Education Program (NKDEP) does not endorse the use of the MDRD equation for patients that are not between the ages of 18 and 70, are , have extremes of body size, muscle mass, or nutritional status, or are non- or non-. According to the National Kid[employer] Foundation, irrespective of diagnosis, the stage of the disease is based on the level of kidney function: Stage Description GFR(mL/min/1.73 m(2)) 1 Kidney damage with normal or decreased GFR 90 2 Kidney damage with mild decrease in GFR 60-89 3 Moderate decrease in GFR 30-59 4 Severe decrease in GFR 15-29 5 Kidney failure <15 (or dialysis) 13 SEE RESULT BELOW Name: CARMELA BATRES : [address]: Simone Alba MD Acct: [id number] Unit: [id number] AGE: 72 Location: [facility] Re06/30/17 SEX: F Status: DEP REF SPEC: [id number] NU: 06/30/17-[address] [facility] [address]: Simone Alba MD REQ: [id number] RECD: 06/30/17 STATUS: LUIS ARMANDO ESQUIVEL DR: Malorie Amor [employer] _ SOURCE: GAS ANTRUM SPDESC: ORDERED: Clotest Procedure Result Reported Site Clotest Final 07/01/17- 0751 ML Clotest Negative * ML - MAIN LAB ([facility]) . END OF REPORT * ML=Testing performed at Main Lab DEPARTMENT OF PATHOLOGY, [address] [place] [address] Jonathan Davis M.D. Director [facility] # [id number] 15 SEE RESULT BELOW Name: CARMELA BATRES : [address]: Simone Alba MD Acct: [id number] Unit: [id number] AGE: 72 Location: [facility] Re06/30/17 SEX: F Status: DEP REF SPEC: [id number] NU: 06/30/17-[address] [facility] [address]: Simone Alba MD REQ: [id number] RECD: 06/30/17-4273 STATUS: MARTINA ESQUIVEL DR: Malorie Amor [employer] SALES ASSOCIATE _ ORDERED: LEVEL 4/2 COMMENTS: [id number] FINAL DIAGNOSIS 1. Gastroesophageal junction, biopsy: -- Squamous and columnar mucosa with chronic inflammation. -- Intestinal metaplasia is absent. -- Dysplasia is absent. 2. Esophagus, body, biopsy: -- Benign squamous mucosa with mild erosive changes. -- No evidence of eosinophilic esophagitis. POST-OPERATIVE DIAGNOSIS Esophagus - wide ring - biopsied, biopsied for eosinophilic esophagitis. Gastric - normal. Duodenum - normal. GROSS DESCRIPTION 1. The specimen is received in formalin labeled, Biopsy GE Junction, and consists of a 0.4 x 0.2 x 0.2 cm white-pink irregular to polypoid soft tissue fragment, which is entirely submitted in one cassette. 2. The specimen is received in formalin labeled, Biopsy Esophageal Body, and consists of a 0.4 x 0.3 x 0.1 cm translucent white red irregular to polypoid soft tissue fragment, which is entirely submitted in one cassette. Signed (signature on file) Jessenia Cortes MD 1438 END OF REPORT * ML=Testing performed at Main Lab DEPARTMENT OF PATHOLOGY, [address] [place] [address] Jonathan Davis M.D. Director [facility] # [id number] 16 SEE RESULT BELOW Name: CARMELA BATRES : [address]: Malorie Amor NP Acct: [id number] Unit: [id number] AGE: 71 Location: [facility] Re01/13/17 SEX: F Status: REG REF SPEC: [id number] NU: 01/13/17-[address]: Malorie Amor NP REQ: [id number] RECD: 01/13/170 STATUS: SOUT _ ORDERED: LEVEL IV COMMENTS: [id number] FINAL DIAGNOSIS Skin, left arm, excision: -- Skin and subcutaneous tissue with dermal foreign body giant cell granulomatous inflammation with nonpolarizable foreign material. PRE-OPERATIVE DIAGNOSIS D48.5 GROSS DESCRIPTION The specimen is received in formalin labeled, Left Arm, and consists of a 0.2 cm reed-white circular skin punch excised to a depth of 0.2 cm, which is submitted entirely in one cassette. Signed (signature on file) Jonathan Davis MD 1137 END OF REPORT * ML=Testing performed at Main Lab DEPARTMENT OF PATHOLOGY, [address] [place] [address] Jonathan Davis M.D. Director [facility] # [id number] 17 Because ethnic data is not always readily available, this report includes an eGFR for both -Americans and non- Americans. The National Kidney Disease Education Program (NKDEP) does not endorse the use of the MDRD equation for patients that are not between the ages of 18 and 70, are , have extremes of body size, muscle mass, or nutritional status, or are non- or non-. According to the National Kidney Foundation, irrespective of diagnosis, the stage of the disease is based on the level of kidney function: Stage Description GFR(mL/min/1.73 m(2)) 1 Kidney damage with normal or decreased GFR 90 2 Kidney damage with mild decrease in GFR 60-89 3 Moderate decrease in GFR 30-59 4 Severe decrease in GFR 15-29 5 Kidney failure <15 (or dialysis) 18 Desirable <150 Borderline high 150-199 High 200-499 Very High >500 19 Desirable <200 Borderline high 200-239 High >239 20 Low <40 Desirable: 40-60 High: >60 21 Desirable: <100 mg/dL Near Optimal: 100-129 mg/dL Borderline High: 130-159 mg/dL High: 160-189 mg/dL Very High: >189 mg/dL 22 [id number] 23 [id number] 24 [id number] 25 SEE RESULT BELOW Name: JOSHUACARMELA : [address]: Malorie Amor NP Acct: [id number] Unit: [id number] AGE: 70 Location: [facility] Re06/19/15 SEX: F Status: REG REF SPEC: [id number] NU: 06/19/[address] [facility] [address]: Malorie Amor NP REQ: [id number] RECD: 06/19/15123 STATUS: SOUT _ ORDERED: IMAGE ANALYSIS, HPV/Thin Prep, HPV 16/18 GENE FINAL DIAGNOSIS Negative for Intraepithelial lesion or Malignancy A. Ectocervical/Endocervical Specimen Adequacy: Satisfactory of evaluation Transformation zone component identified Patient Information: HPV: High risk HPV RNA testing regardless of pap results. HPV 16/18 Genotype for HPV pos Actual Specimen Date: 06/19/15 Date of Last Specimen: 12/09/11 Date Time Test Result Flag (u) Normal Range 06/19/15 0923 HPV RNA RFLX GE Negative Negative The high-risk HPV types detected by the assay include: 16, 18, 31, 33, 35, 39, 45, 51, 52, 56, 58, 59, 66, and 68. Signed (signature on file) Heather Laura 06/20/15 1359 This Pap test was evaluated with the assistance of the ThinPrep Test Imaging System. Due to cytologic findings at the sports agent microscope, comprehensive manual rescreening by a Cloud Automation Tester may be required. The Pap Smear is a screening test designed to aid in the detection of premalignant and malignant conditions of the uterine cervix. It is not a diagnostic procedure and should not be used as the sole means of detecting cervical cancer. Both false- positive and false- negative reports do occur. Depending on your risk status, a Pap smear should be obtained and evaluated every 1-3 years. END OF REPORT * ML=Testing performed at Main Lab DEPARTMENT OF PATHOLOGY, [address] [place] [address] Jonathan Davis M.D. Director [facility] # [id number] 26 The high-risk HPV types detected by the assay include: 16, 18, 31, 33, 35, 39, 45, 51, 52, 56, 58, 59, 66, and 68. 27 Desirable <150 Borderline high 150-199 High 200-499 Very High >500 28 Desirable <200 Borderline high 200-239 High >239 29 Low <40 Desirable: 40-60 High: >60 30 Desirable: <100 mg/dL Near Optimal: 100-129 mg/dL Borderline High: 130-159 mg/dL High: 160-189 mg/dL Very High: >189 mg/dL 31 Because ethnic data is not always readily available, this report includes an eGFR for both -Americans and non- Americans. The National Kidney Disease Education Program (NKDEP) does not endorse the use of the MDRD equation for patients that are not between the ages of 18 and 70, are , have extremes of body size, muscle mass, or nutritional status, or are non- or non-. According to the National Kidney Foundation, irrespective of diagnosis, the stage of the disease is based on the level of kidney function: Stage Description GFR(mL/min/1.73 m(2)) 1 Kidney damage with normal or decreased GFR 90 2 Kidney damage with mild decrease in GFR 60-89 3 Moderate decrease in GFR 30-59 4 Severe decrease in GFR 15-29 5 Kidney failure <15 (or dialysis) 32 Normal Range 180 to 914 Indeterminate Range 145 to 180 Deficient Range <145 33 Normal Range 180 to 914 Indeterminate Range 145 to 180 Deficient Range <145 34 Because ethnic data is not always readily available, this report includes an eGFR for both -Americans and non- Americans. The National Kidney Disease Education Program (NKDEP) does not endorse the use of the MDRD equation for patients that are not between the ages of 18 and 70, are , have extremes of body size, muscle mass, or nutritional status, or are non- or non-. According to the National Kidney Foundation, irrespective of diagnosis, the stage of the disease is based on the level of kidney function: Stage Description GFR(mL/min/1.73 m(2)) 1 Kidney damage with normal or decreased GFR 90 2 Kidney damage with mild decrease in GFR 60-89 3 Moderate decrease in GFR 30-59 4 Severe decrease in GFR 15-29 5 Kidney failure <15 (or dialysis) 35 Desirable <150 Borderline high 150-199 High 200-499 Very High >500 36 Desirable <200 Borderline high 200-239 High >239 37 Low <40 Desirable: 40-60 High: >60 38 Desirable <100 Near Optimal 100-129 Borderline high 130-159 High 160-189 Very High >189 39 Normal Range 180 to 914 Indeterminate Range 145 to 180 Deficient Range <145 40 Because ethnic data is not always readily available, this report includes an eGFR for both -Americans and non- Americans. The National Kidney Disease Education Program (NKDEP) does not endorse the use of the MDRD equation for patients that are not between the ages of 18 and 70, are , have extremes of body size, muscle mass, or nutritional status, or are non- or non-. According to the National Kidney Foundation, irrespective of diagnosis, the stage of the disease is based on the level of kidney function: Stage Description GFR(mL/min/1.73 m(2)) 1 Kidney damage with normal or decreased GFR 90 2 Kidney damage with mild decrease in GFR 60-89 3 Moderate decrease in GFR 30-59 4 Severe decrease in GFR 15-29 5 Kidney failure <15 (or dialysis) 41 Desirable <150 Borderline high 150-199 High 200-499 Very High >500 42 Desirable <200 Borderline high 200-239 High >239 43 Low <40 Desirable: 40-60 High: >60 44 Desirable <100 Near Optimal 100-129 Borderline high 130-159 High 160-189 Very High >189 45 HDL Interpretation: Undesirable: High Risk: Less than 40 MG/DL Desirable: Low Risk: Greater than 60 MG/DL 46 LDL Interpretation: Low Risk Optimal Level: LDL Less than 100 MG/DL Near or Above Optimal: LDL 100-129 MG/DL Borderline High Risk: LDL 130-159 MG/DL High Risk: LDL 160-189 MG/DL Very High Risk: LDL Greater than 189 MG/DL 47 Because ethnic data is not always readily available, this report includes an eGFR for both -Americans and non- Americans. The National Kidney Disease Education Program (NKDEP) does not endorse the use of the MDRD equation for patients that are not between the ages of 18 and 70, are , have extremes of body size, muscle mass, or nutritional status, or are non- or non-. According to the National Kidney Foundation, irrespective of diagnosis, the stage of the disease is based on the level of kidney function: Stage Description GFR(mL/min/1.73 m(2)) 1 Kidney damage with normal or decreased GFR 90 2 Kidney damage with mild decrease in GFR 60-89 3 Moderate decrease in GFR 30-59 4 Severe decrease in GFR 15-29 5 Kidney failure <15 (or dialysis) 48 RUN DATE: 12/21/12 [facility] LAB LIVE PAGE 1 RUN TIME: [address] [place] [address] Specimen Inquiry Name: CARMELA BATRES : [address]: Simone Alba MD Acct: [id number] Unit: [id number] AGE: 67 Location: ENDO Re12/20/12 SEX: F Status: REG REF SPEC: [id number] NU: 12/20/12-[address] [facility] [address]: Simone Alba MD REQ: [id number] RECD: 12/20/12 STATUS: LUIS ARMANDO ESQUIVEL DR: Ondina Paul MD _ SOURCE: GAS ANTRUM SPDESC: ORDERED: Clotest Procedure Result Verified Site Clotest Final 12/21/12- 0744 ML Clotest Negative END OF REPORT * ML=Testing performed at Main Lab DEPARTMENT OF PATHOLOGY, [facility] [employer] [place], [place] [address] Jonathan Davis M.D. Director [facility] Permit #[id number] RUN DATE: 12/21/12 [facility] LAB LIVE PAGE 1 RUN TIME: 250 [facility] [employer] [place], [place] [address] Specimen Inquiry Name: CARMELA BATRES : [address]: Simone Alba MD Acct: [id number] Unit: [id number] AGE: 67 Location: ENDO Re12/20/12 SEX: F Status: REG REF SPEC: [id number] NU: 12/20/12- SUBM DR: Simone Alba MD REQ: [id number] RECD: 12/20/121309 STATUS: MARTINA ESQUIVEL DR: Ondina Paul MD _ ORDERED: LEVEL IV/2 FINAL DIAGNOSIS 1) GE Junction, biopsy: Gastroesophageal junction mucosa with reflex esophagitis. No goblet cell metaplasia or dysplasia identified. 2) Colon, hepatic flexure, biopsy: A. Tubular adenoma. B. No high grade dysplasia or malignancy. CLINICAL HISTORY Dysphagia, diverticulitis. E - nodule, erosive esophagitis, G - erosions, D - normal. GROSS DESCRIPTION 1) The specimen is received in formalin labeled Carmela Batres, Biopsy GE Junction Nodule and consists of a reed, soft tissue fragment measuring 0.5 x 0.3 x 0.2 cm. Submitted entirely, one cassette. 2) The specimen is received in formalin labeled Carmelasong Hectore[place], Hepatic Flexure Polyp and consists of a reed, soft tissue fragment measuring 0.5 x 0.3 x 0.2 cm. . Submitted entirely, one cassette. Signed (signature on file) Jonathan Davis MD 1542 END OF REPORT * ML=Testing performed at Main Lab DEPARTMENT OF PATHOLOGY, [address] [place] [address] Jonathan Davis M.D. Director [facility] Permit #[id number] 50 Anion gap measurement may be of limited value in the presence of any alkalosis, especially in a combined acid base disorder. . 51 Because ethnic data is not always readily available, this report includes an eGFR for both -Americans and non- Americans. The National Kidney Disease Education Program (NKDEP) does not endorse the use of the MDRD equation for patients that are not between the ages of 18 and 70, are , have extremes of body size, muscle mass, or nutritional status, or are non- or non-. According to the National Kidney Foundation, irrespective of diagnosis, the stage of the disease is based on the level of kidney function: Stage Description GFR(mL/min/1.73 m(2)) 1 Kidney damage with normal or decreased GFR 90 2 Kidney damage with mild decrease in GFR 60-89 3 Moderate decrease in GFR 30-59 4 Severe decrease in GFR 15-29 5 Kidney failure <15 (or dialysis) 52 ---- RUN DATE: 12/10/11 [facility] NMI LIVE PAGE 1 RUN TIME: 1212 Specimen Inquiry RUN USER: INTERFACE -- Name: CARMELA BATRES Mp Accmp#: [id number] Status: REG REF Re12/09/11 Age/Sex: 66/F Unit#: [id number] Location: [facility]. : [birth year] -- Specimen: [id number] SOUT Spec Date: 12/09/[address]: Ondina narayan MD Spec Type: CYTOLOGY Received: 12/10/11-0853 Copies to: SOURCE ECTOCERVICAL/ENDOCERVICAL Thin Prep with Reflex HPV Test PATIENT INFORMATION ACTUAL COLLECTION DATE: 12/09/11 DATE OF PRIOR SPECIMEN: 03/13/10 ADEQUACY OF SPECIMEN Satisfactory for evaluation * Transformation zone component identified * DIAGNOSIS NEGATIVE FOR INTRAEPITHELIAL LESION OR MALIGNANCY * This Pap test was evaluated with the assistance of the SpecifiedBy Pap Test Imaging System. However, due to technical or cytologic issues, the imaging could not be completed. Comprehensive manual rescreening by a Cloud Automation Tester was performed. The Pap Smear is a screening test designed to aid in the detection of premalign ant and malignant conditions of the uterine cervix. It is not a diagnostic procedure a nd should not be used as the sole means of detecting cervical cancer. Both false- positiv e and false-negative reports do occur. Depending on your risk status, a Pap smear luis miguel uld be obtained and evaluated every one to three years. Initial evaluation performed by Debra BANEGAS(ASCP) 12/10/11 Final Interpretation electronically signed by: Debra BANEGAS(ASCP) 12/10/11 1211 -- -- DEPARTMENT OF PATHOLOGY, [address] [place] [address] [facility] Permit #[id number] Jonathan Davis M.D. Director Carmencita Whyte ina -- 53 ---- RUN DATE: 03/14/10 [facility] NMI LIVE PAGE 1 RUN TIME: 1513 Specimen Inquiry RUN USER: INTERFACE -- Name: CARMELA BATRES Accmp#: [id number] Status: REG REF Re03/13/10 Age/Sex: 65/F Unit#: [id number] Location: [facility] : [birth year] -- Specimen: [id number] SOUT Spec Date: 03/13/[address]: Ondina narayan MD Spec Type: CYTOLOGY Received: 03/14/10-0958 Copies to: SOURCE ECTOCERVICAL/ENDOCERVICAL Thin Prep with Reflex HPV Test PATIENT INFORMATION ACTUAL COLLECTION DATE: 03/13/10 PATIENT HISTORY: No history given. ADEQUACY OF SPECIMEN Satisfactory for evaluation * Transformation zone component identified * DIAGNOSIS NEGATIVE FOR INTRAEPITHELIAL LESION OR MALIGNANCY * This Pap test was evaluated with the assistance of the ThinPrep Pap Test Imaging System. The Pap Smear is a screening test designed to aid in the detection of premalign ant and malignant conditions of the uterine cervix. It is not a diagnostic procedure a nd should not be used as the sole means of detecting cervical cancer. Both false- positiv e and false-negative reports do occur. Depending on your risk status, a Pap smear luis miguel uld be obtained and evaluated every one to three years. Initial evaluation performed by Debra BANEGAS(ASCP) 03/14/10 Final Interpretation electronically signed by: Debra BANEGAS(ASCP) 03/14/10 1512 -- -- DEPARTMENT OF PATHOLOGY, [address] [place] [address] [facility] Permit #[id number] Jonathan Davis M.D. Director Leslie Fernando M.D. Sexton Helper ina -- 54 Anion gap measurement may be of limited value in the presence of any alkalosis, especially in a combined acid base disorder. . 55 Note change in reference range as of 07/06/08. The change was based on recommendations from the [place] [employer]. 56 Please note change in reference range effective 08 . 57 A metabolite of Naproxen, O-desmethylnaproxen, has been shown to interfere with the Jendrassik-Halls method for measuring total bilirubin. Samples from patients who have taken Naproxen have shown spurious elevation in total bilirubin levels. 58 Because ethnic data is not always readily available, this report includes an eGFR for both -Americans and non- Americans. The National Kidney Disease Education Program (NKDEP) does not endorse the use of the MDRD equation for patients that are not between the ages of 18 and 70, are , have extremes of body size, muscle mass, or nutritional status, or are non- or non-. According to the National Kidney Foundation, irrespective of diagnosis, the stage of the disease is based on the level of kidney function: Stage Description GFR(mL/min/1.73 m(2)) 1 Kidney damage with normal or decreased GFR 90 2 Kidney damage with mild decrease in GFR 60-89 3 Moderate decrease in GFR 30-59 4 Severe decrease in GFR 15-29 5 Kidney failure <15 (or dialysis) 59 CHOLESTEROL INTERPRETATION: Desirable: Less than 200 MG/DL Borderline-High Risk: 200-239 MG/DL High-Risk: 240 MG/DL and over 60 HDL INTERPRETATION: Undesirable: High Risk: Less than 40 MG/DL Desirable: Low Risk: Greater than 60 MG/DL 61 LDL INTERPRETATION: Low Risk Optimal Level: LDL Less than 100 MG/DL Near or Above Optimal: LDL 100-129 MG/DL Borderline High Risk: LDL 130-159 MG/DL High Risk: LDL 160-189 MG/DL Very High Risk: LDL Greater than 189 MG/DL 62 ---- RUN DATE: 02/21/09 [facility] NMI LIVE PAGE 1 RUN TIME: 1111 Specimen Inquiry RUN USER: INTERFACE -- Name: DEVENDRA BATRESSONG Rivera#: [id number] Status: REG REF Re02/20/09 Age/Sex: 63/F Unit#: [id number] Location: [facility] : [birth year] -- Specimen: [id number] SOUT Spec Date: 02/20/[address]: Ondina narayan MD Spec Type: CYTOLOGY Received: 02/21/09 Copies to: SOURCE ECTOCERVICAL/ENDOCERVICAL Thin Prep with Reflex HPV Test PATIENT INFORMATION ACTUAL COLLECTION DATE: 02/20/09 PATIENT HISTORY: NO HISTORY GIVEN ADEQUACY OF SPECIMEN Satisfactory for evaluation * Transformation zone component identified * DIAGNOSIS NEGATIVE FOR INTRAEPITHELIAL LESION OR MALIGNANCY * This Pap test was evaluated with the assistance of the ThinPrep Pap Test Imaging System. The Pap Smear is a screening test designed to aid in the detection of premalign ant and malignant conditions of the uterine cervix. It is not a diagnostic procedure a nd should not be used as the sole means of detecting cervical cancer. Both false- positiv e and false-negative reports do occur. Depending on your risk status, a Pap smear luis miguel uld be obtained and evaluated every one to three years. Final Interpretation electronically signed by: Debra BANEGAS(ASCP) 02/21/09 1111 -- -- DEPARTMENT OF PATHOLOGY, [address] [place] [address] [facility] Permit #[id number] Jonathan Davis M.D. Director Leslie Fernando M.D. Sexton Helper Dir ina -- 63 Anion gap measurement may be of limited value in the presence of any alkalosis, especially in a combined acid base disorder. . 64 Note change in reference range as of 07/06/08. The change was based on recommendations from the [place] [employer]. 65 Please note change in reference range effective 08 . 66 CHOLESTEROL INTERPRETATION: Desirable: Less than 200 MG/DL Borderline-High Risk: 200-239 MG/DL High-Risk: 240 MG/DL and over 67 HDL INTERPRETATION: Undesirable: High Risk: Less than 40 MG/DL Desirable: Low Risk: Greater than 60 MG/DL 68 LDL INTERPRETATION: Low Risk Optimal Level: LDL Less than 100 MG/DL Near or Above Optimal: LDL 100-129 MG/DL Borderline High Risk: LDL 130-159 MG/DL High Risk: LDL 160-189 MG/DL Very High Risk: LDL Greater than 189 MG/DL 69 Analyte Specific Reagent This test was developed and its performance characteristics determined by Laboratory Medicine and Pathology, [facility]. This test has not been cleared or approved by the U.S. Food and Drug Administration. Test Performed by: [facility] Dpt of Lab Med and Pathology [address] [place] [address] Project Development Leader: Ciarna Nuñez III, M.D. 70 ---- RUN DATE: 11/19/07 [facility] NMI LIVE PAGE 1 RUN TIME: 1257 Specimen Inquiry RUN USER: INTERFACE [id number] CARMELA BATRES 62/F <REG REF 11/17> ([id number]) OUMAR Paul MD, Jessica Green -- Specimen: [id number] SOUT Spec Date: 11/17/[address]: Ondina narayan MD Spec Type: CYTOLOGY Received: 11/18/07 Copies to: SOURCE ECTOCERVICAL/ENDOCERVICAL Thin Prep with Reflex HPV Test PATIENT INFORMATION ACTUAL COLLECTION DATE: 11/17/07 ADEQUACY OF SPECIMEN Satisfactory for evaluation * Transformation zone component identified * DIAGNOSIS NEGATIVE FOR INTRAEPITHELIAL LESION OR MALIGNANCY * This Pap test was evaluated with the assistance of the DiggPrep Pap Test Imaging System. The Pap Smear is a screening test designed to aid in the detection of premalign ant and malignant conditions of the uterine cervix. It is not a diagnostic procedure a nd should not be used as the sole means of detecting cervical cancer. Both false- positive and false-negative reports do occur. Depending on your risk status, a Pap smear luis miguel uld be obtained and evaluated every one to three years. Final Interpretation electronically signed by: Debra BANEGAS(ASCP) 11/19/07 1257 -- -- DEPARTMENT OF PATHOLOGY, [address] [place] [address] [facility] Permit #[id number] Jonathan Davis M.D. Director of Laboratories -- 71 Anion gap measurement may be of limited value in the presence of any alkalosis, especially in a combined acid base disorder. . 72 FINAL: NO GROWTH DAY 2 (<1,000 CFU/mL) 73 ---- RUN DATE: 06/15/06 [facility] NMI TEST PAGE 1 RUN TIME: 1133 Specimen Inquiry RUN USER: INTERFACE [id number] CARMELA BATRES 61/F <REG REF 06/08> ([id number]) Ondina Jama MD. -- Specimen: [id number] SOUT Spec Date: 06/08/[address]: Ashli Paul MD. Spec Type: CYTOLOGY Received: 06/11/06-1338 Copies to: SOURCE ECTOCERVICAL/ENDOCERVICAL Thin Prep with Reflex HPV Test PATIENT INFORMATION ACTUAL COLLECTION DATE: 06/08/06 ? NO POST MENOPAUSAL? Yes HYSTERECTOMY? No PREVIOUS ABNORMAL PAP SMEARS No ADEQUACY OF SPECIMEN Satisfactory for evaluation * Transformation zone component identified * DIAGNOSIS NEGATIVE FOR INTRAEPITHELIAL LESION OR MALIGNANCY * The Pap Smear is a screening test designed to aid in the detection of premalign ant and malignant conditions of the uterine cervix. It is not a diagnostic procedure an d should not be used as the sole means of detecting cervical cancer. Both false-positive and false-negative reports do occur. Depending on your risk status, a Pap smear luis miguel uld be obtained and evaluated every one to three years. Signed Debra BANEGAS(ASCP) 06/15/06 -- -- DEPARTMENT OF PATHOLOGY, [address] [place] [address] [facility] Permit #[id number] Devante Lucio II, M.D. Director Jonathan Davis M.D. Assistant Eulalia baxterctor -- 74 STAT BUN/CREATININE FOR CT SCAN STAT BUN/CREATININE FOR CT SCAN VERBAL TO DR PAUL AND CT DEPT BY [facility] at 1253 on 03/28/06. Results read back accurately. STAT BUN/CREATININE FOR CT SCAN STAT BUN/CREATININE FOR CT SCAN VERBAL TO DR PAUL AND CT DEPT BY [facility] at 1253 on 03/28/06. Results read back accurately. STAT BUN/CREATININE FOR CT SCAN STAT BUN/CREATININE FOR CT SCAN VERBAL TO DR PAUL AND CT DEPT BY [facility] at 1253 on 03/28/06. Results read back accurately. STAT BUN/CREATININE FOR CT SCAN STAT BUN/CREATININE FOR CT SCAN VERBAL TO DR PAUL AND CT DEPT BY [facility] at 1253 on 03/28/06. Results read back accurately. STAT BUN/CREATININE FOR CT SCAN STAT BUN/CREATININE FOR CT SCAN VERBAL TO DR PAUL AND CT DEPT BY [facility] at 1253 on 03/28/06. Results read back accurately. STAT BUN/CREATININE FOR CT SCAN STAT BUN/CREATININE FOR CT SCAN VERBAL TO DR PAUL AND CT DEPT BY [facility] at 1253 on 03/28/06. Results read back accurately. STAT BUN/CREATININE FOR CT SCAN STAT BUN/CREATININE FOR CT SCAN VERBAL TO DR PAUL AND CT DEPT BY [facility] at 1253 on 03/28/06. Results read back accurately. STAT BUN/CREATININE FOR CT SCAN STAT BUN/CREATININE FOR CT SCAN VERBAL TO DR PAUL AND CT DEPT BY [facility] at 1253 on 03/28/06. Results read back accurately. STAT BUN/CREATININE FOR CT SCAN STAT BUN/CREATININE FOR CT SCAN VERBAL TO DR PAUL AND CT DEPT BY [facility] at 1253 on 03/28/06. Results read back accurately. STAT BUN/CREATININE FOR CT SCAN STAT BUN/CREATININE FOR CT SCAN VERBAL TO DR PAUL AND CT DEPT BY [facility] at 1253 on 03/28/06. Results read back accurately. STAT BUN/CREATININE FOR CT SCAN STAT BUN/CREATININE FOR CT SCAN VERBAL TO DR PAUL AND CT DEPT BY [facility] at 1253 on 03/28/06. Results read back accurately. STAT BUN/CREATININE FOR CT SCAN STAT BUN/CREATININE FOR CT SCAN VERBAL TO DR PAUL AND CT DEPT BY [facility] at 1253 on 03/28/06. Results read back accurately. STAT BUN/CREATININE FOR CT SCAN STAT BUN/CREATININE FOR CT SCAN VERBAL TO DR PAUL AND CT DEPT BY [facility] at 1253 on 03/28/06. Results read back accurately. STAT BUN/CREATININE FOR CT SCAN STAT BUN/CREATININE FOR CT SCAN VERBAL TO DR PAUL AND CT DEPT BY [facility] at 1253 on 03/28/06. Results read back accurately. STAT BUN/CREATININE FOR CT SCAN STAT BUN/CREATININE FOR CT SCAN VERBAL TO DR PAUL AND CT DEPT BY [facility] at 1253 on 03/28/06. Results read back accurately. STAT BUN/CREATININE FOR CT SCAN STAT BUN/CREATININE FOR CT SCAN VERBAL TO DR PAUL AND CT DEPT BY [facility] at 1253 on 03/28/06. Results read back accurately. STAT BUN/CREATININE FOR CT SCAN STAT BUN/CREATININE FOR CT SCAN VERBAL TO DR PAUL AND CT DEPT BY [facility] at 1253 on 03/28/06. Results read back accurately. STAT BUN/CREATININE FOR CT SCAN STAT BUN/CREATININE FOR CT SCAN VERBAL TO DR PAUL AND CT DEPT BY [facility] at 1253 on 03/28/06. Results read back accurately. STAT BUN/CREATININE FOR CT SCAN STAT BUN/CREATININE FOR CT SCAN VERBAL TO DR PAUL AND CT DEPT BY [facility] at 1253 on 03/28/06. Results read back accurately. STAT BUN/CREATININE FOR CT SCAN STAT BUN/CREATININE FOR CT SCAN VERBAL TO DR PAUL AND CT DEPT BY [facility] at 1253 on 03/28/06. Results read back accurately. STAT BUN/CREATININE FOR CT SCAN STAT BUN/CREATININE FOR CT SCAN VERBAL TO DR PAUL AND CT DEPT BY [facility] at 1253 on 03/28/06. Results read back accurately. STAT BUN/CREATININE FOR CT SCAN STAT BUN/CREATININE FOR CT SCAN VERBAL TO DR PAUL AND CT DEPT BY [facility] at 1253 on 03/28/06. Results read back accurately. STAT BUN/CREATININE FOR CT SCAN STAT BUN/CREATININE FOR CT SCAN VERBAL TO DR PAUL AND CT DEPT BY [facility] at 1253 on 03/28/06. Results read back accurately. STAT BUN/CREATININE FOR CT SCAN STAT BUN/CREATININE FOR CT SCAN VERBAL TO DR PAUL AND CT DEPT BY [facility] at 1253 on 03/28/06. Results read back accurately. STAT BUN/CREATININE FOR CT SCAN STAT BUN/CREATININE FOR CT SCAN VERBAL TO DR PAUL AND CT DEPT BY [facility] at 1253 on 03/28/06. Results read back accurately. STAT BUN/CREATININE FOR CT SCAN STAT BUN/CREATININE FOR CT SCAN VERBAL TO DR PAUL AND CT DEPT BY [facility] at 1253 on 03/28/06. Results read back accurately. STAT BUN/CREATININE FOR CT SCAN STAT BUN/CREATININE FOR CT SCAN VERBAL TO DR PAUL AND CT DEPT BY [facility] at 1253 on 03/28/06. Results read back accurately. STAT BUN/CREATININE FOR CT SCAN STAT BUN/CREATININE FOR CT SCAN VERBAL TO DR PAUL AND CT DEPT BY [facility] at 1253 on 03/28/06. Results read back accurately. STAT BUN/CREATININE FOR CT SCAN STAT BUN/CREATININE FOR CT SCAN VERBAL TO DR PAUL AND CT DEPT BY [facility] at 1253 on 03/28/06. Results read back accurately. STAT BUN/CREATININE FOR CT SCAN STAT BUN/CREATININE FOR CT SCAN VERBAL TO DR APUL AND CT DEPT BY [facility] at 1253 on 03/28/06. Results read back accurately. STAT BUN/CREATININE FOR CT SCAN STAT BUN/CREATININE FOR CT SCAN VERBAL TO DR PAUL AND CT DEPT BY [facility] at 1253 on 03/28/06. Results read back accurately. STAT BUN/CREATININE FOR CT SCAN STAT BUN/CREATININE FOR CT SCAN VERBAL TO DR PAUL AND CT DEPT BY [facility] at 1253 on 03/28/06. Results read back accurately. STAT BUN/CREATININE FOR CT SCAN STAT BUN/CREATININE FOR CT SCAN VERBAL TO DR PAUL AND CT DEPT BY [facility] at 1253 on 03/28/06. Results read back accurately. STAT BUN/CREATININE FOR CT SCAN STAT BUN/CREATININE FOR CT SCAN VERBAL TO DR PAUL AND CT DEPT BY [facility] at 1253 on 03/28/06. Results read back accurately. STAT BUN/CREATININE FOR CT SCAN STAT BUN/CREATININE FOR CT SCAN VERBAL TO DR PAUL AND CT DEPT BY [facility] at 1253 on 03/28/06. Results read back accurately. STAT BUN/CREATININE FOR CT SCAN STAT BUN/CREATININE FOR CT SCAN VERBAL TO DR PAUL AND CT DEPT BY [facility] at 1253 on 03/28/06. Results read back accurately. STAT BUN/CREATININE FOR CT SCAN STAT BUN/CREATININE FOR CT SCAN VERBAL TO DR PAUL AND CT DEPT BY [facility] at 1253 on 03/28/06. Results read back accurately. STAT BUN/CREATININE FOR CT SCAN STAT BUN/CREATININE FOR CT SCAN VERBAL TO DR PAUL AND CT DEPT BY [facility] at 1253 on 03/28/06. Results read back accurately. STAT BUN/CREATININE FOR CT SCAN STAT BUN/CREATININE FOR CT SCAN VERBAL TO DR PAUL AND CT DEPT BY [facility] at 1253 on 03/28/06. Results read back accurately. STAT BUN/CREATININE FOR CT SCAN STAT BUN/CREATININE FOR CT SCAN VERBAL TO DR PAUL AND CT DEPT BY [facility] at 1253 on 03/28/06. Results read back accurately. STAT BUN/CREATININE FOR CT SCAN STAT BUN/CREATININE FOR CT SCAN VERBAL TO DR PAUL AND CT DEPT BY [facility] at 1253 on 03/28/06. Results read back accurately. STAT BUN/CREATININE FOR CT SCAN STAT BUN/CREATININE FOR CT SCAN VERBAL TO DR PAUL AND CT DEPT BY [facility] at 1253 on 03/28/06. Results read back accurately. STAT BUN/CREATININE FOR CT SCAN STAT BUN/CREATININE FOR CT SCAN VERBAL TO DR PAUL AND CT DEPT BY [facility] at 1253 on 03/28/06. Results read back accurately. STAT BUN/CREATININE FOR CT SCAN STAT BUN/CREATININE FOR CT SCAN VERBAL TO DR PAUL AND CT DEPT BY [facility] at 1253 on 03/28/06. Results read back accurately. STAT BUN/CREATININE FOR CT SCAN STAT BUN/CREATININE FOR CT SCAN VERBAL TO DR PAUL AND CT DEPT BY [facility] at 1253 on 03/28/06. Results read back accurately. STAT BUN/CREATININE FOR CT SCAN STAT BUN/CREATININE FOR CT SCAN VERBAL TO DR PAUL AND CT DEPT BY [facility] at 1253 on 03/28/06. Results read back accurately. STAT BUN/CREATININE FOR CT SCAN STAT BUN/CREATININE FOR CT SCAN VERBAL TO DR PAUL AND CT DEPT BY [facility] at 1253 on 03/28/06. Results read back accurately. STAT BUN/CREATININE FOR CT SCAN STAT BUN/CREATININE FOR CT SCAN VERBAL TO DR PAUL AND CT DEPT BY [facility] at 1253 on 03/28/06. Results read back accurately. STAT BUN/CREATININE FOR CT SCAN STAT BUN/CREATININE FOR CT SCAN VERBAL TO DR PAUL AND CT DEPT BY [facility] at 1253 on 03/28/06. Results read back accurately. STAT BUN/CREATININE FOR CT SCAN STAT BUN/CREATININE FOR CT SCAN VERBAL TO DR PAUL AND CT DEPT BY [facility] at 1253 on 03/28/06. Results read back accurately. STAT BUN/CREATININE FOR CT SCAN STAT BUN/CREATININE FOR CT SCAN VERBAL TO DR PAUL AND CT DEPT BY [facility] at 1253 on 03/28/06. Results read back accurately. STAT BUN/CREATININE FOR CT SCAN STAT BUN/CREATININE FOR CT SCAN VERBAL TO DR PAUL AND CT DEPT BY [facility] at 1253 on 03/28/06. Results read back accurately. STAT BUN/CREATININE FOR CT SCAN STAT BUN/CREATININE FOR CT SCAN VERBAL TO DR PAUL AND CT DEPT BY [facility] at 1253 on 03/28/06. Results read back accurately. STAT BUN/CREATININE FOR CT SCAN STAT BUN/CREATININE FOR CT SCAN VERBAL TO DR PAUL AND CT DEPT BY [facility] at 1253 on 03/28/06. Results read back accurately. STAT BUN/CREATININE FOR CT SCAN STAT BUN/CREATININE FOR CT SCAN VERBAL TO DR PAUL AND CT DEPT BY [facility] at 1253 on 03/28/06. Results read back accurately. STAT BUN/CREATININE FOR CT SCAN STAT BUN/CREATININE FOR CT SCAN VERBAL TO DR PAUL AND CT DEPT BY [facility] at 1253 on 03/28/06. Results read back accurately. STAT BUN/CREATININE FOR CT SCAN STAT BUN/CREATININE FOR CT SCAN VERBAL TO DR PAUL AND CT DEPT BY [facility] at 1253 on 03/28/06. Results read back accurately. STAT BUN/CREATININE FOR CT SCAN STAT BUN/CREATININE FOR CT SCAN VERBAL TO DR PAUL AND CT DEPT BY [facility] at 1253 on 03/28/06. Results read back accurately. STAT BUN/CREATININE FOR CT SCAN STAT BUN/CREATININE FOR CT SCAN VERBAL TO DR PAUL AND CT DEPT BY [facility] at 1253 on 03/28/06. Results read back accurately. STAT BUN/CREATININE FOR CT SCAN STAT BUN/CREATININE FOR CT SCAN VERBAL TO DR PAUL AND CT DEPT BY [facility] at 1253 on 03/28/06. Results read back accurately. STAT BUN/CREATININE FOR CT SCAN STAT BUN/CREATININE FOR CT SCAN VERBAL TO DR PAUL AND CT DEPT BY [facility] at 1253 on 03/28/06. Results read back accurately. STAT BUN/CREATININE FOR CT SCAN STAT BUN/CREATININE FOR CT SCAN VERBAL TO DR PAUL AND CT DEPT BY [facility] at 1253 on 03/28/06. Results read back accurately. STAT BUN/CREATININE FOR CT SCAN STAT BUN/CREATININE FOR CT SCAN VERBAL TO DR PAUL AND CT DEPT BY [facility] at 1253 on 03/28/06. Results read back accurately. STAT BUN/CREATININE FOR CT SCAN STAT BUN/CREATININE FOR CT SCAN VERBAL TO DR PAUL AND CT DEPT BY [facility] at 75 FINAL: NO GROWTH DAY 2 (<1,000 CFU/mL) 76 SEAN VALUE=1.95 ( OF 11/29/03) Recommended INR for Patients on Oral Anticoagulants Prophylaxis 2.0 - 3.0 Treatment of thrombosis 2.0 - 3.0 Prevention of embolism 2.0 - 3.0 Prevention of embolism from prosthetic heart valves 2.5 - 3.5 77 Classification: Desirable . 78 CALCULATED LDL APPROXIMATES THE VALUE OF A DIRECT LDL MEASUREMENT. Classification: Near or above optimal . 79 Anion gap measurement may be of limited value in the presence of any alkalosis, especially in a combined acid base disorder. . 80 THERAPEUTIC TARGET FOR THE TREATMENT OF DIABETES MELLITUS PATIENTS IS <7% HBA1C. [employer] DIABETES CARE 2002;25:S33-S49. TEST PERFORMED BY: [facility] [address] [place] [id number] CLIA #[id number] Classification: High . 82 CALCULATED LDL APPROXIMATES THE VALUE OF A DIRECT LDL MEASUREMENT. Classification: Borderline High . 83 Please note change in reference range 84 SEAN VALUE=1.86 ( OF 11/21/02) Recommended INR for Patients on Oral Anticoagulants Prophylaxis 2.0 - 3.0 Treatment of thrombosis 2.0 - 3.0 Prevention of embolism 2.0 - 3.0 Prevention of embolism from prosthetic heart valves 2.5 - 3.5 85 SPECKLED PATTERN 1:40 86 RH FACTOR RESULTS: * RH (RH FACTOR) : /-1/-1 -00:01 87 confirmed on reassay 88 Confirmed on reassay 89 NON FASTING Procedures Date Code Description Status 01/13/2017 44195 BX Of Skin,Tissue, Mucous Membran Completed 12/31/2016 12229 EKG, at Least 12 Leads w/Interpretation and Report Completed 12/17/2016 [id number] Mammogram Completed 11/16/2012 95219096 Colonoscopy Completed 12/09/2011 98088 EKG, at Least 12 Leads w/Interpretation and Report Completed 12/15/2007 60460 Chemical Cauterization Completed Encounters Type Date Location Provider Dx Diagnosis Office Visit 06/10/2018 Main Office Imelda Daley, Z00.00 Encntr for general 8:00a [employer] adult medical exam w/o abnormal findings E03.9 Hypothyroidism, unspecified R53.1 Weakness Office Visit 09/21/2017 3:15p Main Office Rao Negro S70.362A Insect bite Storm, [employer] (nonvenomous), left thigh, initial encounter Office Visit 12/31/2016 8:00a Main Office Malorie Z00.00 Encntr for general Erika, adult medical exam [employer] w/o abnormal findings E78.00 Pure hypercholesterolemia, unspecified E03.9 Hypothyroidism, unspecified Z12.31 Encntr screen mammogram for malignant neoplasm of breast R32 Unspecified urinary incontinence R55 Syncope and collapse Office Visit 02/11/2016 Main Office Gregg K57.32 Dvtrcli of lg int 10:15a MD Dianne w/o perforation or abscess w/o bleeding Office Visit 09/21/2015 Main Office Jacob Stout S70.361A Insect bite 8:45a III, [employer] (nonvenomous), right thigh, initial encounter Office Visit 06/19/2015 Main Office Malorie Amor, V03.82 Streptococcus 8:00a [employer] Pneumoniae Vaccination Spec Other V70.0 Examination General Medical Routine AT Health Care Facility 272.0 Hypercholesterolemia Pure 244.9 Hypothyroidism Other Unspec Office Visit 04/06/2014 2:00p Main Office Rao Negro 562.11 Diverticulitis Colon Storm, [employer] W/O Hemorrhage Office Visit 02/21/2014 8:00a Main Office Malorie V70.0 Examination General Erika, Medical Routine AT [facility] 244.9 Hypothyroidism Other Unspec 782.0 Skin Sensation Disturbance 272.4 Hyperlipidemia Other Unspec Office Visit 02/08/2013 8:00a Main Office Malorie Amor, V70.0 Examination General [employer] Medical Routine AT [facility] 244.9 Hypothyroidism Other Unspec 272.0 Hypercholesterolemia Pure Office Visit 11/19/2012 10:30a Main Office Ondina Jenkins 562.11 Diverticulitis Yeison Paul M.D. W/O Hemorrhage Office Visit 08/27/2010 12:30p Main Office Ondina Jenkins 719.41 Pain Joint Shoulder Carmencita Paul Region V04.81 Need For Prophylactic Vaccination & Inoculation/Influenza Office Visit 05/21/2010 9:00a Main Office Brook Trotter, 379.90 Eye Disorder Unspec PA-C Office Visit 03/13/2010 9:00a Main Office Ondina Jenkins V72.31 Routine Earl Paul M.D. Examination V70.0 Examination General Medical Routine AT [facility] 244.9 Hypothyroidism Other Unspec 616.10 Vaginitis & Vulvovaginitis Unspec 719.44 Pain Joint Hand V06.1 Wtpgrbzfuz-Vuybuyf-Zqyjqoom Combined (DTaP) Office Visit 02/20/2009 9:45a Main Office Ondina Jenkins V72.31 Routine Earl Paul M.D. Examination V70.0 Examination General Medical Routine AT [facility] 733.01 Osteoporosis Senile 787.20 Dysphagia, Unspecified 244.8 Hypothyroidism Other Spec Office Visit 11/17/2007 9:30a Main Office Ondina Jenkins V72.31 Routine Earl Paul M.D. Examination V70.0 Examination General Medical Routine AT [facility] Facility 244.9 Hypothyroidism Other Unspec Office Visit 06/24/2006 12:45p Main Office Ondina Jenkins 562.10 Diverticulosis Yeison Paul M.D. W/O Hemorrhage 599.0 UTI Urinary Tract Infection Site Not Spec Office Visit 06/08/2006 12:00p Main Office Ondina Jenkins V72.31 Routine Earl Paul M.D. Examination V70.0 Examination General Medical Routine AT [facility] 244.9 Hypothyroidism Other Unspec Office Visit 04/07/2006 9:45a Main Office Ondina Jenkins 562.10 Diverticulosis Colon Carmencita Paul W/O Hemorrhage 244.8 Hypothyroidism Other Spec Office Visit 03/31/2006 9:00a Main Office Ondina Jenkins 562.11 Diverticulitis Colon Carmencita Paul W/O Hemorrhage Office Visit 03/28/2006 11:15a Main Office Kay Dover 789.9 Abdomen & Pelvis Carmencita Grajeda Symptoms Other 599.7 Hematuria Office Visit 12/19/2005 2:30p Main Office Elgin Balderrama, 461.0 Sinusitis Acute M.D. Maxillary Office Visit 04/23/2005 1:30p Main Office Ondina Jenkins V72.31 Routine Spinner Iron Carmencita Paul Examination V70.0 Examination General Medical Routine AT Health Care Facility 300.00 Anxiety State Unspec 244.9 Hypothyroidism Other Unspec V76.9 Screening Malignant Neoplasm Unspec Office Visit 10/23/2004 3:00p Main Office Ondina Paul, 784.7 Epistaxis M.DElly 244.9 Hypothyroidism Other Unspec 300.02 Anxiety Disorder Generalized Office Visit 04/22/2004 4:00p Main Office Ondina Jenkins 300.02 Anxiety Disorder Carmencita Paul Generalized 244.9 Hypothyroidism Other Unspec 388.30 Tinnitus Unspecified 716.90 Arthropathy Unspec Site Unspec Office Visit 04/19/2004 9:15a Main Office Ondina Jenkins 427.31 Atrial Fibrillation Carmencita Paul Office Visit 02/20/2004 4:15p Main Office Kay Dover 461.0 Sinusitis Acute Carmencita Grajeda Maxillary Office Visit 06/23/2003 8:45a Main Office Ondina Jenkins V72.3 Examination Carmencita Paul Gynecological 244.9 Hypothyroidism Other Unspec 780.79 Malaise And Fatigue Other 786.50 Pain Chest Unspec V70.0 Examination General Medical Routine AT Health Care Facility 716.90 Arthropathy Unspec Site Unspec 311 Depressive Disorder Not Elsewhere Spec V76.9 Screening Malignant Neoplasm Unspec Office Visit 03/31/2003 11:30a Main Office Ender Hernández, 373.12 Hordeolum Internum Claire.DElly Office Visit 04/18/2002 10:45a Main Office Ondina Jenkins V72.3 Examination Carmencita Paul Gynecological 244.9 Hypothyroidism Other Unspec V70.0 Examination General Medical Routine AT Health Care Facility V76.9 Screening Malignant Neoplasm Unspec Plan of Treatment Future Appointment(s):05/17/2019 8:45 am - SEAN Norris at Main [facility]8604/18/2019 - Gregg Tomlincarolynetio, MDM25.551 Pain in right hipComments:She is concerned for an injury of the hip- she wants imaging done. We will get an X-ray , but I cautioned her that we are unlikely to get a CT or MRI approved with her resolving, acute injury and unchanged ability to bear weight on the leg.R40.4 Transient alteration of awarenessComments:Around the time of her falls she has periods of time with abnormal behavior patterns that she does not recall clearly. It is not clear if these are the cause or the result of her falls.
[2019-04-21] MEDS ORDERED: traMADol TAB* 50 MG PO PRN (13:08)
[2019-04-21] MEDS ORDERED: Magnesium Hydroxide LIQ* 30 ML UDC PO PRN (13:09)
[2019-04-21] MEDS ORDERED: Senna TAB PO PRN (13:11)
[2019-04-21] MEDS: Enoxaparin(*) 40 MG/0.4 ML SYR SUBCUT SCH (16:18)
[2019-04-21] MEDS: Docusate CAP* 100 MG PO SCH (21:02)
[2019-04-21] MEDS: Sertraline* 25 MG TAB PO SCH (21:03)
[2019-04-21] MEDS: Cyclobenzaprine TAB* 10 MG PO PRN (21:03)
--- NOTE | 2019-04-21 21:10 | HP ---
HISTORY AND PHYSICAL: DATE OF ADMISSION: 04/21/19 REASON FOR ADMISSION: Right hip fracture. HISTORY OF PRESENT ILLNESS: Carmela Batres is a 74-year-old female. She has a medical significant for Parkinson disease, diagnosed a few years ago. She is on no medications at the present time. She has mild right-sided weakness a result of her Parkinson disease. On Thursday evening, 04/15/19, the patient was in her own home when she stood up and turned to her right, lost her balance and fell landing on her right hip. Her was there and able to get her up. She began to use a walker because she had trouble bearing weight on the right leg. She thought it was just a bruise. Her [id number] who is a physical therapist came to the house and felt that she should go to the emergency room for evaluation. She came to the emergency room 04/18/19. She had an x-ray taken that showed a valgus impacted femoral neck fracture with mild displacement. She was seen by Dr. Oconnell. She was admitted to the hospitalist service. She was taken to the operating room on 04/19/19 and underwent a closed reduction with cannulated screws to the right hip. Postoperatively, her course was notable for some significant pain early on. She was started on Lovenox for DVT prophylaxis. She was given 3 doses of Ancef. There was some concern that she had a urinary tract infection. She was started on ceftriaxone , but urine cultures came back negative and that was stopped. She was felt to have physical therapy and occupational therapy needs. She is now being admitted for inpatient rehab such that she might return to independent living. PAST MEDICAL HISTORY: Significant for the aforementioned Parkinson's disease. In addition, she has a history of gastroesophageal reflux, hypothyroidism, diverticulitis. CURRENT MEDICATIONS: Include: 1. Lovenox for DVT prophylaxis. 2. Synthroid. 3. Protonix. 4. Zoloft. 5. Tramadol for pain control. ALLERGIES: CIPRO, CODEINE, MORPHINE, PENICILLIN and SULFA. SOCIAL HISTORY: She is a non-smoker, non-drinker, lives with her in a 1 -jet house with 4-step to [address] She has 2 sons living nearby. REVIEW OF SYSTEMS: The patient reports no current shortness of breath or chest pain. PHYSICAL EXAMINATION VITAL SIGNS: The patient's temperature is 98.2, blood pressure is 130/65, pulse is 92, respirations are 20. HEENT: Her extraocular movements are intact. Tongue is midline. NECK: Supple. LUNGS: Sounded clear to auscultation bilaterally. HEART: Sounds are regular. S1 and S2 are audible. ABDOMEN: Soft and nontender. EXTREMITIES: Showed slightly increased tone in the upper extremities as well as the left lower extremity. Her right hip had wounds, which are clean and dry. Peripheral pulses were intact. NEUROLOGIC: I did not detect much of resting tremor. She had slightly increased tone as mentioned. Muscle strength appeared to be close to 5/5 in the left side, 4+/5 on the right arm, 4+/5 in the left leg and 4/5 in the right leg secondary to pain. Her functional exam, she transfers with contact guard. ASSESSMENT AND PLAN: Right hip fracture in a patient with a history of Parkinson's disease and right-sided weakness. Our plan integrate her into comprehensive and therapeutic rehab program with the following goals: 1. Physical Therapy will work with the patient. They are going to work on functional transfer training, ambulation training with a walker. 2. Occupational Therapy. I will see the patient work on her activities of daily living including toileting and toilet transfers. 3. Lovenox for DVT prophylaxis. 4. Adequate analgesia. 5. Her bowels will be regulated. 6. Continue Synthroid for hypothyroidism. 7. Long Chain Beamer will be closely involved to make sure that any services and equipment the patient requires are in place prior to discharge. 8. Family training as appropriate. 9. Home with appropriate services. 10. Advance directives. The patient is a full code. 11. Estimated length of stay is 1 week. [id number]/CPS #: [id number] MTDD
[2019-04-22 05:13] LABS: ABS Eosinophils 0.1 10^3/ul (0-0.6); ABS Lymphocytes 1.6 10^3/ul (1.0-4.8); ABS Monocytes 0.4 10^3/ul (0-0.8); ABS Neutrophils 3.4 10^3/ul (1.5-7.7); Eosinophil % 1.5 %; Hematocrit 37 % (35-47); Hemoglobin 12.2 g/dL (12.0-16.0); Lymphocyte % 28.6 %; Mean Corpuscular HGB Conc 34 g/dL (31-36); Mean Corpuscular Hemoglobin 28 pg (27-31); Mean Corpuscular Volume 83 fL (80-97); Nucleated Red Blood Cells % 0.1; Platelet Count 220 10^3/uL (150-450); Red Blood Count 4.39 10^6 /uL (3.70-4.87); Red Cell Distribution Width 13 % (10-15); White Blood Count 5.6 10^3/uL (3.5-10.8)
[2019-04-22 05:28] LABS: Albumin 3.6 g/dL (3.2-5.2); Albumin/Globulin Ratio 1.3 (1-3); BUN/Creatinine Ratio 26.8 (8-20); Calcium 9.1 mg/dL (8.6-10.3); EGFR African American 97.6 (>60); EGFR Non-African American 80.7 (>60); Globulin 2.8 g/dL (2-4); Potassium 3.9 mmol/L (3.5-5.0); Total Bilirubin 0.4 mg/dL (0.2-1.0); Total Protein 6.4 g/dL (6.4-8.9)
[2019-04-22] MEDS: Levothyroxine TAB* 125 MCG TAB PO SCH (05:29)
[2019-04-22] MEDS ORDERED: Docusate CAP* 100 MG PO PRN (09:08)
--- NOTE | 2019-04-22 09:19 | PN ---
Progress Note Date of Service: 04/22/19 Note: JASON LEWIS was visited. Nursing and therapy notes read and reviewed. No chest pain, shortness of breath or abdominal pain. She has had diarrhea. At home she uses citrucel 2 at bedtime. Pain is well controlled with tylenol prn, but she needs some now. She does not tolerate stronger pain meds. Current Medications: Active Medications Generic Name Dose Route Start Last Admin Trade Name Freq PRN Reason Stop Dose Admin Acetaminophen 650 mg 04/21/19 13:02 Tylenol Tab* PO Q6H PRN FEVER > 101 Cyclobenzaprine HCl 10 mg 04/21/19 18:54 04/21/19 21:03 Flexeril Tab* PO 10 mg TID PRN Administration SPASMS Docusate Sodium 100 mg 04/22/19 09:08 Colace Cap* PO BID PRN CONSTIPATION Enoxaparin Sodium 40 mg 04/21/19 14:00 04/21/19 16:18 Lovenox(*) SUBCUT 40 mg Q24H RICH Administration Levothyroxine Sodium 125 mcg 04/22/19 06:00 04/22/19 05:29 Synthroid Tab* PO 125 mcg DAILY@0600 RICH Administration Magnesium Hydroxide 30 ml 04/21/19 13:09 Milk Of Magnesia Liq* PO Q6H PRN CONSTIPATION Pantoprazole Sodium 40 mg 04/22/19 09:00 Protonix Tab* PO DAILY RICH Senna 2 tab 04/21/19 13:11 Senokot Tab* PO BEDTIME PRN CONSTIPATION Sertraline HCl 25 mg 04/21/19 21:00 04/21/19 21:03 Zoloft* PO 25 mg 2100 RICH Administration Tramadol HCl 50 mg 04/21/19 13:08 Ultram* PO Q6H PRN PAIN - MODERATE TO SEVERE Vital Signs: Vital Signs Temp Pulse Resp BP Pulse Ox 97.8 F 86 20 148/76 94 04/22/19 05:00 04/22/19 05:00 04/22/19 05:00 04/22/19 05:00 04/22/19 05:00 Lab Results: Laboratory Results - last 24 hr 04/22/19 04/22/19 04:50 04:50 WBC 5.6 RBC 4.39 Hgb 12.2 Hct 37 MCV 83 MCH 28 MCHC 34 RDW 13 Plt Count 220 MPV 7.0 L Neut % (Auto) 62.0 Lymph % (Auto) 28.6 [place] % (Auto) 7.6 Eos % (Auto) 1.5 Baso % (Auto) 0.3 Absolute Neuts (auto) 3.4 Absolute Lymphs (auto) 1.6 Absolute Monos (auto) 0.4 Absolute Eos (auto) 0.1 Absolute Basos (auto) 0.0 Absolute Nucleated RBC 0.0 Nucleated RBC % 0.1 Sodium 138 Potassium 3.9 Chloride 106 Carbon Dioxide 27 Anion Gap 5 BUN 19 Creatinine 0.71 Est GFR ( Amer) 97.6 Est GFR (Non-Af Amer) 80.7 BUN/Creatinine Ratio 26.8 H Glucose 113 H Calcium 9.1 Total Bilirubin 0.40 AST 22 ALT 13 Alkaline Phosphatase 64 Total Protein 6.4 Albumin 3.6 Globulin 2.8 Albumin/Globulin Ratio 1.3 Exam: GEN: no acute distress. alert and appropriate. LUNGS: clear to auscultation bilaterally. CV: regular rate and rhythm ABD: + bowel sounds, soft, non-tender, non-distended EXT: no edema. Dressing c/d/i NEURO: LE motor 5/5 bilaterally with limited testing of right hip and knee due to pain. Sensation intact BLE. Assessment/Plan: 74yo woman with Parkinsons Disease s/p right hip fracture #Right hip fracture - f/u with Dr. Oconnell. PT/OT. Tylenol prn #DVT ppx - Lovenox. Will need to teach self administration. #Diarrhea - bowel meds will be changed to as needed. #Hypothyroidism - Continue synthroid #Advanced directives - Full code. is hcp. #Estimated LOS - IPOC today. 04/22/19 09:16
[2019-04-22] MEDS: Acetaminophen TAB* 325 MG PO PRN ×2 (09:47→20:51)
[2019-04-22] MEDS: Pantoprazole TAB * 40 MG TAB PO SCH (09:48)
[2019-04-22] MEDS: Docusate CAP* 100 MG PO SCH (10:03)
--- NOTE | 2019-04-22 12:38 | PMRUTEAM ---
PMRU: Team Meeting Current Status: Nursing: Current Status Skin Deviations [Bilateral Rash Hand] Skin Deviations [Left Upper Bruise,Other Back] Skin Deviations [Right Hip] Incision Skin Deviation Description [ improved Bilateral Hand] Skin Deviation Description [ bruise and scratch to upper l back. open to air Left Upper Back] Skin Deviation Description [ quarter size amount of old bloody drainage noted. Right Hip] drsg removed prior to showering with OT Physical Therapy: Current Status Bed Mobility Assistance min A - supervision Transfer Mobility Assistance supervision - CGA Transfer/Bed Mobility Rolling Walker Recommended Devices Ambulation Assistance supervision Ambulation Assistive Devices Rolling Walker Stairs Assistance contact guard Stairs Recommended Devices Two Rails Number of Stairs 4 Occupational Therapy: Current Status Upper Body Dressing Min Assist Lower Body Dressing Min Assist Bathing Min Assist,Mod Assist Toileting Contact Guard Assist Toilet Transfer Contact Guard Assist Shower Transfer Contact Guard Assist Eating Independent Rec Therapy: Current Status Summary of Assessment and Pt. was open to conversation - very interactive Clinical Impression and engaged. Pt. identified with numerous interests and active involvement in them prior to admission. Provided pt. with the newspaper as she requested. Pt. participated in pet therapy. Pt. is interested in continued leisure visits on the unit. Treatment Goals Pt. will engage in leisure activities while on the unit. Treatment Plan Provide recreation therapy services and encourage involvement. Social Work: Current Status Discharge Plan return home with home care svs and family support Potential for Family Training pt's is involved and supportive Anticipated Discharge Home Destination Discharge With home care svs and family support Goals: Physical Therapy: Updated Goals Independent bed mobility. Modified independent transfers and ambulation with RW 150ft. Flight of stairs. Occupational Therapy: Initial Goals Goals to be Completed in (Days 10-14 ) Upper Body Bathing Routine Independent Lower Body Bathing Routine Modified Independent with Upper Body Dressing Routine Independent Lower Body Dressing Routine Modified Independent with Toilet Hygeine and Clothing Modified Independent with Management Routine Toilet Transfer Routine Modified Independent with Step-In Shower Transfer Supervision/Set Up Routine Functional Transfers for ADL Modified Independent with Grooming Routine Independent Feeding Routine Independent Social Work: Goals Discharge Plan return home with home care svs and family support Potential for Family Training pt's is involved and supportive Anticipated Discharge Home Destination Discharge With home care svs and family support Care Plan: Care Plan ADL's - Improve/Maintain Start: 04/21/19 16:15 Freq: DAILY Status: Active Target: Protocol: Activity Type Activity Date Activity User E-Sign Co-Sign Detail Recorded Client Recorded Date Recorded By Document 04/22/19 11:52 [id number] 04/22/19 11:53 [id number] 04/22/19 11:52 PMRU Outcome: ADL's/ADL Transfers Orders/Interventions Occupational Therapy Evaluation & Treatment Communication Tool in Patient Room Device Yes Address Deficits Secondary To: right hip fx Patient to receive OT 5x/wk for 60-120 Therex min/day Self Care Management Group Therapy UE/LE ADL's with Assist Yes: Raad ADL Transfers with Assist Yes: Raad Toileting: Transfers,Clothing Management Yes: Raad ,Hygeine w/Assist Light Kitchen/Laundry w/Assist Yes: Raad for light meal prep Progression Toward Outcome/Goals Progressing Outcome/Goals Met Pt shows good progress toward goals. Pt does not appear as weak during transfers and is very motivated to get home. Pt is understanding of the hard work she will be doing in therapy everyday so she is proactive about making sure she has the proper pain medication to be able to tolerate therapy. DVT Prophylaxis- Improve/Maintain Start: 04/21/19 10:46 Freq: QSHIFT Status: Active Target: Protocol: Activity Type Activity Date Activity User E-Sign Co-Sign Detail Recorded Client Recorded Date Recorded By Document 04/21/19 18:16 [id number] [id number] 04/21/19 18:18 [id number] 04/21/19 18:16 PMRU Outcome: DVT Prophylaxis Outcome/Goals Remains Free of DVT Complies with DVT Prophylaxis /Treatment Demonstrates Knowledge of DVT Prevention/ Treatment TEDS Stockings on Every AM, Off at HS Progression Toward Outcome/Goals Progressing Discharge Planning - Improve/Maintain Start: 04/21/19 10:46 Freq: DAILY Status: Active Target: Protocol: Activity Type Activity Date Activity User E-Sign Co-Sign Detail Recorded Client Recorded Date Recorded By Document 04/22/19 00:17 [id number] 04/22/19 00:17 [id number] 04/22/19 00:17 PMRU Outcome: Discharge Planning Update Patient Family No Outcome/Goals Demonstrates Understanding of Discharge Plan Education-Improve/Maintain Start: 04/21/19 10:46 Freq: QSHIFT Status: Active Target: Protocol: Activity Type Activity Date Activity User E-Sign Co-Sign Detail Recorded Client Recorded Date Recorded By Document 04/21/19 18:16 [id number] 04/21/19 18:18 [id number] 04/21/19 18:16 PMRU Outcome: Education Outcome/Goals Demonstrates Skills Encourage Questions Progression Toward Outcome/Goals Progressing /GI-Improve/Maintain Start: 04/21/19 10:46 Freq: QSHIFT Status: Active Target: Protocol: Activity Type Activity Date Activity User E-Sign Co-Sign Detail Recorded Client Recorded Date Recorded By Document 04/21/19 18:16 [id number] [id number] 04/21/19 18:18 [id number] 04/21/19 18:16 PMRU Outcome: Genitourinary/ Gastrointestinal Genitourinary- Outcome/Goals Remain Free of Hospital- Acquired UTI Gastrointestinal-Outcome/Goals Maintain/ Achieve Bowel Regularity in Accordance with Pt's Baseline Prevent Constipation Laxatives as Ordered Progression Toward Outcome/Goals - Progressing Progression Toward Outcome/Goals - GI Progressing Medication Administration Start: 04/21/19 10:46 Freq: QSHIFT Status: Active Target: Protocol: Activity Type Activity Date Activity User E-Sign Co-Sign Detail Recorded Client Recorded Date Recorded By Document 04/21/19 18:16 [id number] 04/21/19 18:18 [id number] 04/21/19 18:16 PMRU Outcome: Medication Administration Assess Patient Knowledge/Teach Med Yes Education for all Meds Outcome/Goals Patient Independent with Medication Administration at Home Progression Towards Outcome/Goals Progressing Is Patient Going Home on Lovenox? No Neurological- Improve/Maintain Start: 04/21/19 10:46 Freq: QSHIFT Status: Active Target: Protocol: Activity Type Activity Date Activity User E-Sign Co-Sign Detail Recorded Client Recorded Date Recorded By Document 04/21/19 18:16 [id number] 04/21/19 18:18 [id number] 04/21/19 18:16 PMRU Outcome: Neurological Weakness/Aphasia Weakness Right Side Weakness/Aphasia Comment s/p R ORIF, h/o parkinsons Outcome/Goals Prevent Avoidable Neurological Decline Maintain/ Improve Strength/ROM Progression Toward Outcome/Goals Progressing Pain/Comfort- Improve/Maintain Start: 04/21/19 10:46 Freq: QSHIFT Status: Active Target: Protocol: Activity Type Activity Date Activity User E-Sign Co-Sign Detail Recorded Client Recorded Date Recorded By Document 04/21/19 18:19 [id number] 04/21/19 18:21 [id number] 04/21/19 18:19 PMRU Outcome: Pain/Comfort Outcome/Goals Demonstrates Knowledge and Use of Available Comfort Measures Achieves Acceptable Comfort/Pain Level as Determined by Patient/Condit Maintain Comfort Level Allowing Patient to Fully Participate in Rehab Progression Toward Outcome/Goals Progressing Safety- Improve/Maintain Start: 04/21/19 10:46 Freq: QSHIFT Status: Active Target: Protocol: Activity Type Activity Date Activity User E-Sign Co-Sign Detail Recorded Client Recorded Date Recorded By Document 04/21/19 18:21 [id number] 04/21/19 18:23 [id number] 04/21/19 18:21 PMRU Outcome: Safety Outcome/Goals Remain Free of Injury or Harm Cooperates with Safety Measures for Least Restrictive Environment Prevent Falls/ Injury Progression Toward Outcome/Goals Progressing Skin- Improve/Maintain Start: 04/21/19 10:46 Freq: QSHIFT Status: Active Target: Protocol: Activity Type Activity Date Activity User E-Sign Co-Sign Detail Recorded Client Recorded Date Recorded By Document 04/21/19 18:21 [id number] 04/21/19 18:23 [id number] 04/21/19 18:21 PMRU Outcome: Skin Skin Risk Level Low Skin Orders Dressing Change Outcome/Goals Maintain/ Improve Skin Intergrity Surgical Incisions Healing Progression Toward Outcome/Goals Progressing Medicine Note: Length of Stay: [1 week] Anticipated Discharge Destination: Home Tentative Discharge Date: [04/29/19] Discharged to: [home with family]
[2019-04-22] MEDS: Enoxaparin(*) 40 MG/0.4 ML SYR SUBCUT SCH (14:14)
[2019-04-22] MEDS: Sertraline* 25 MG TAB PO SCH (20:51)
[2019-04-22] MEDS: Cyclobenzaprine TAB* 10 MG PO PRN (20:51)
[2019-04-23] MEDS: Levothyroxine TAB* 125 MCG TAB PO SCH (06:45)
[2019-04-23] MEDS: Pantoprazole TAB * 40 MG TAB PO SCH (08:57)
[2019-04-23] MEDS: Acetaminophen TAB* 325 MG PO PRN ×2 (09:00→20:58)
--- NOTE | 2019-04-23 11:01 | PN ---
Progress Note Date of Service: 04/23/19 Note: JASON LEWIS was visited. Nursing and therapy notes read and reviewed. No chest pain, shortness of breath or abdominal pain. She had loose stools 3x yesterday but none today. Current Medications: Active Medications Generic Name Dose Route Start Last Admin Trade Name Freq PRN Reason Stop Dose Admin Acetaminophen 650 mg 04/21/19 13:02 04/23/19 09:00 Tylenol Tab* PO 650 mg Q6H PRN Administration FEVER > 101 Cyclobenzaprine HCl 10 mg 04/21/19 18:54 04/22/19 20:51 Flexeril Tab* PO 10 mg TID PRN Administration SPASMS Docusate Sodium 100 mg 04/22/19 09:08 Colace Cap* PO BID PRN CONSTIPATION Enoxaparin Sodium 40 mg 04/21/19 14:00 04/22/19 14:14 Lovenox(*) SUBCUT 40 mg Q24H RICH Administration Levothyroxine Sodium 125 mcg 04/22/19 06:00 04/23/19 06:45 Synthroid Tab* PO 125 mcg DAILY@0600 RICH Administration Magnesium Hydroxide 30 ml 04/21/19 13:09 Milk Of Magnesia Liq* PO Q6H PRN CONSTIPATION Pantoprazole Sodium 40 mg 04/22/19 09:00 04/23/19 08:57 Protonix Tab* PO 40 mg DAILY RICH Administration Senna 2 tab 04/21/19 13:11 Senokot Tab* PO BEDTIME PRN CONSTIPATION Sertraline HCl 25 mg 04/21/19 21:00 04/22/19 20:51 Zoloft* PO 25 mg 2100 RICH Administration Tramadol HCl 50 mg 04/21/19 13:08 Ultram* PO Q6H PRN PAIN - MODERATE TO SEVERE Vital Signs: Vital Signs Temp Pulse Resp BP Pulse Ox 98.1 F 85 16 137/68 95 04/23/19 06:53 04/23/19 06:53 04/23/19 06:53 04/23/19 06:53 04/23/19 06:53 Exam: GEN: no acute distress. alert and appropriate. LUNGS: clear to auscultation bilaterally. CV: regular rate and rhythm ABD: + bowel sounds, soft, non-tender, non-distended EXT: no edema. Scant blood on dressing. [place] c/d/i NEURO: LE motor 5/5 bilaterally with limited testing of right hip and knee due to pain. Sensation intact BLE. Assessment/Plan: 74yo woman with Parkinsons Disease s/p right hip fracture #Right hip fracture - f/u with Dr. Oconnell. PT/OT. Tylenol prn #DVT ppx - Lovenox. Will need to teach self administration. #Diarrhea - bowel meds will be changed to as needed. #Hypothyroidism - Continue synthroid #Advanced directives - Full code. is hcp. #Estimated LOS - 04/29/19 04/23/19 10:59
[2019-04-23] MEDS: Enoxaparin(*) 40 MG/0.4 ML SYR SUBCUT SCH (13:32)
[2019-04-23] MEDS: Sertraline* 25 MG TAB PO SCH (20:58)
[2019-04-24] MEDS: Acetaminophen TAB* 325 MG PO PRN ×3 (05:30→21:11)
[2019-04-24] MEDS: Levothyroxine TAB* 125 MCG TAB PO SCH (05:31)
[2019-04-24] MEDS: Pantoprazole TAB * 40 MG TAB PO SCH (09:24)
--- NOTE | 2019-04-24 09:34 | PN ---
Progress Note Date of Service: 04/24/19 Note: JASON LEWIS was visited. Nursing notes read and reviewed. No chest pain, shortness of breath or abdominal pain. She is wanting to get a medic alert for home after discharge so her has more freedom to go out and not worry about her. Current Medications: Active Medications Generic Name Dose Route Start Last Admin Trade Name Freq PRN Reason Stop Dose Admin Acetaminophen 650 mg 04/21/19 13:02 04/24/19 05:30 Tylenol Tab* PO 650 mg Q6H PRN Administration FEVER > 101 Cyclobenzaprine HCl 10 mg 04/21/19 18:54 04/22/19 20:51 Flexeril Tab* PO 10 mg TID PRN Administration SPASMS Docusate Sodium 100 mg 04/22/19 09:08 Colace Cap* PO BID PRN CONSTIPATION Enoxaparin Sodium 40 mg 04/21/19 14:00 04/23/19 13:32 Lovenox(*) SUBCUT 40 mg Q24H RICH Administration Levothyroxine Sodium 125 mcg 04/22/19 06:00 04/24/19 05:31 Synthroid Tab* PO 125 mcg DAILY@0600 RICH Administration Magnesium Hydroxide 30 ml 04/21/19 13:09 Milk Of Magnesia Liq* PO Q6H PRN CONSTIPATION Pantoprazole Sodium 40 mg 04/22/19 09:00 04/24/19 09:24 Protonix Tab* PO 40 mg DAILY RICH Administration Senna 2 tab 04/21/19 13:11 Senokot Tab* PO BEDTIME PRN CONSTIPATION Sertraline HCl 25 mg 04/21/19 21:00 04/23/19 20:58 Zoloft* PO 25 mg 2100 RICH Administration Vital Signs: Vital Signs Temp Pulse Resp BP Pulse Ox 98.0 F 85 16 153/82 96 04/24/19 05:51 04/24/19 05:51 04/24/19 05:51 04/24/19 05:51 04/24/19 05:51 Exam: GEN: no acute distress. alert and appropriate. LUNGS: clear to auscultation bilaterally. CV: regular rate and rhythm ABD: + bowel sounds, soft, non-tender, non-distended EXT: no edema. Scant blood on dressing. [place] c/d/i NEURO: LE motor 5/5 bilaterally with limited testing of right hip and knee due to pain. Sensation intact BLE. Assessment/Plan: 74yo woman with Parkinsons Disease s/p right hip fracture #Right hip fracture - f/u with Dr. Oconnell. PT/OT. Tylenol prn #Parkinsons disease - not on any medications. f/u with Dr. Zaidi end of the month. #DVT ppx - Lovenox. Completed self administration teaching 04/23. #Diarrhea - resolved. bowel meds as needed. #Hypothyroidism - Continue synthroid #Advanced directives - Full code. is hcp. #Estimated LOS - 04/29/19. I left a note for SW about medic alert for home. 04/24/19 09:33
[2019-04-24] MEDS: Enoxaparin(*) 40 MG/0.4 ML SYR SUBCUT SCH (14:31)
[2019-04-24] MEDS: Sertraline* 25 MG TAB PO SCH (21:12)
[2019-04-25] MEDS: Cyclobenzaprine TAB* 10 MG PO PRN (01:42)
[2019-04-25] MEDS: Acetaminophen TAB* 325 MG PO PRN ×3 (03:48→21:43)
[2019-04-25] MEDS: Levothyroxine TAB* 125 MCG TAB PO SCH (06:23)
[2019-04-25] MEDS: Pantoprazole TAB * 40 MG TAB PO SCH (08:53)
[2019-04-25] MEDS: Enoxaparin(*) 40 MG/0.4 ML SYR SUBCUT SCH (14:00)
--- NOTE | 2019-04-25 18:31 | PN ---
Progress Note Date of Service: 04/25/19 Note: JASON LEWIS was visited. Therapy notes read and reviewed. Her pain is controlled and she feels ok. Had questions about a PERS unit and [facility] Current Medications: Active Medications Generic Name Dose Route Start Last Admin Trade Name Freq PRN Reason Stop Dose Admin Acetaminophen 650 mg 04/21/19 13:02 04/25/19 09:45 Tylenol Tab* PO 650 mg Q6H PRN Administration FEVER > 101 Cyclobenzaprine HCl 10 mg 04/21/19 18:54 04/25/19 01:42 Flexeril Tab* PO 10 mg TID PRN Administration SPASMS Docusate Sodium 100 mg 04/22/19 09:08 Colace Cap* PO BID PRN CONSTIPATION Enoxaparin Sodium 40 mg 04/21/19 14:00 04/25/19 14:00 Lovenox(*) SUBCUT 40 mg Q24H RICH Administration Levothyroxine Sodium 125 mcg 04/22/19 06:00 04/25/19 06:23 Synthroid Tab* PO 125 mcg DAILY@0600 RICH Administration Magnesium Hydroxide 30 ml 04/21/19 13:09 Milk Of Magnesia Liq* PO Q6H PRN CONSTIPATION Pantoprazole Sodium 40 mg 04/22/19 09:00 04/25/19 08:53 Protonix Tab* PO 40 mg DAILY RICH Administration Senna 2 tab 04/21/19 13:11 Senokot Tab* PO BEDTIME PRN CONSTIPATION Sertraline HCl 25 mg 04/21/19 21:00 04/24/19 21:12 Zoloft* PO 25 mg 2100 RICH Administration Vital Signs: Vital Signs Temp Pulse Resp BP Pulse Ox 97.7 F 101 22 119/71 99 04/25/19 17:35 04/25/19 17:35 04/25/19 17:35 04/25/19 17:35 04/25/19 17:35 Exam: GENERAL: no acute distress. alert and appropriate. LUNGS: clear to auscultation bilaterally. HEART: regular rate and rhythm ABDOMEN: + bowel sounds, soft, non-tender, non-distended EXTREMITIES: no edema. Scant blood on dressing. [place] c/d/i NEUROLOGIC: Slightly increased tone. LE motor 5/5 bilaterally with limited testing of right hip and knee due to pain. Sensation intact BLE. Assessment/Plan: 74yo woman with Parkinsons Disease s/p right hip fracture 1. Right hip fracture - f/u with Dr. Oconnell. PT/OT. Tylenol prn 2. Parkinsons disease - not on any medications. f/u with Dr. Zaidi end of the month. 3. DVT prophylaxis - Lovenox. 4. Hypothyroidism - Continue synthroid 5. Advanced directives - Full code. is hcp. 6. #Estimated LOS - 04/29/19. 04/25/19 18:32
[2019-04-25] MEDS: Sertraline* 25 MG TAB PO SCH (21:43)
[2019-04-26] MEDS: Levothyroxine TAB* 125 MCG TAB PO SCH (06:20)
[2019-04-26] MEDS: Pantoprazole TAB * 40 MG TAB PO SCH (08:42)
[2019-04-26] MEDS: Acetaminophen TAB* 325 MG PO PRN ×2 (09:51→21:03)
--- NOTE | 2019-04-26 12:48 | PMRUTEAM ---
PMRU: Team Meeting Current Status: Nursing: Current Status Skin Deviations [Bilateral Rash Hand] Skin Deviations [Left Upper Abrasion Back] Skin Deviations [Right Hip] Incision Skin Deviation Description [ unchanged since adm Bilateral Hand] Skin Deviation Description [ bruise and scratch to upper l back. open to air Left Upper Back] Skin Deviation Description [ Dressing changed. No drainage noted on old Right Hip] dressing. No redness. Ni signs of infection. Incision covered with two 4 x 3 Telfas. Physical Therapy: Current Status Bed Mobility Assistance Supervision Transfer Mobility Assistance Supervision,Contact Guard Assist Transfer/Bed Mobility Rolling Walker Recommended Devices Ambulation Assistance Supervision,Contact Guard Assist Ambulation Assistive Devices Rolling Walker Number of Feet Patient 150 Ambulated Stairs Assistance Supervision,Contact Guard Assist Stairs Recommended Devices Straight Cane,One Rail,Two Rails Number of Stairs 5 Objective Comments step to pattern ascend/descending stairs Occupational Therapy: Current Status Upper Body Dressing Supervision Lower Body Dressing Ind with Adaptive Equip,Contact Guard Assist Bathing Min Assist Toileting Supervision Toilet Transfer Contact Guard Assist Shower Transfer Contact Guard Assist Eating Independent Rec Therapy: Current Status Summary of Assessment and Recreation Therapy assessment complete and pt. is Clinical Impression aware of services. Pt. has been engaged in leisure visits, pet therapy and with her visitors in the afternoons. Treatment Goals Pt. will continue to engage in leisure activities while on the unit. Treatment Plan Provide recreation therapy services and encourage involvement. Social Work: Current Status Discharge Plan return home with home care svs and family support Potential for Family Training pt's family are involved and supportive Anticipated Discharge Home Destination Discharge With home care svs and family support Nutrition: Current Status Monitoring pt s/p right hip fx; hx Parkinson's. No reported dysphagia at this time. Pt eating very well on regular diet; accepting nearly 100% of meals x 5 days. BMs q 1-2 days. Skin is intact w/low risk for breakdown. Labs 04/21 WNL. No nutrition concerns at this time, but full assessment planned 04/28. Goals: Physical Therapy: Updated Goals Transfer/Bed Mobility Rolling Walker Recommended Devices Occupational Therapy: Initial Goals Goals to be Completed in (Days 10-14 ) Upper Body Bathing Routine Independent Lower Body Bathing Routine Modified Independent with Upper Body Dressing Routine Independent Lower Body Dressing Routine Modified Independent with Toilet Hygeine and Clothing Modified Independent with Management Routine Toilet Transfer Routine Modified Independent with Step-In Shower Transfer Supervision/Set Up Routine Functional Transfers for ADL Modified Independent with Grooming Routine Independent Feeding Routine Independent Nutrition: Goals Intervention Goals 1. adequate intake to support hydration, stable wt, and lean body mass 2. maintain serum electrolytes WNL 3. regulation of bowel pattern; no c/o constipation (or diarrhea) Social Work: Goals Discharge Plan return home with home care svs and family support Potential for Family Training pt's family are involved and supportive Anticipated Discharge Home Destination Discharge With home care svs and family support Care Plan: Care Plan ADL's - Improve/Maintain Start: 04/21/19 16:15 Freq: DAILY Status: Active Target: Protocol: Activity Type Activity Date Activity User E-Sign Co-Sign Detail Recorded Client Recorded Date Recorded By Document 04/25/19 11:46 [id number] 04/25/19 11:46 [id number] 04/25/19 11:46 PMRU Outcome: ADL's/ADL Transfers Orders/Interventions Occupational Therapy Evaluation & Treatment Communication Tool in Patient Room Device Yes Address Deficits Secondary To: right hip fx Patient to receive OT 5x/wk for 60-120 Therex min/day Self Care Management Group Therapy UE/LE ADL's with Assist Yes: Raad ADL Transfers with Assist Yes: Raad Toileting: Transfers,Clothing Management Yes: Raad ,Hygeine w/Assist Light Kitchen/Laundry w/Assist Yes: Raad for light meal prep Progression Toward Outcome/Goals Progressing Outcome/Goals Met Pt shows good progress toward goals. Pt does not appear as weak during transfers and is very motivated to get home. Pt was able to complete transfers this afternoon with only contact guard and is supervision while standing completing grooming tasks at sink. DVT Prophylaxis- Improve/Maintain Start: 04/21/19 10:46 Freq: QSHIFT Status: Active Target: Protocol: Activity Type Activity Date Activity User E-Sign Co-Sign Detail Recorded Client Recorded Date Recorded By Document 04/25/19 16:12 [id number] 04/25/19 16:12 [id number] 04/25/19 16:12 PMRU Outcome: DVT Prophylaxis Outcome/Goals Remains Free of DVT Complies with DVT Prophylaxis /Treatment Demonstrates Knowledge of DVT Prevention/ Treatment TEDS Stockings on Every AM, Off at HS Progression Toward Outcome/Goals Progressing Discharge Planning - Improve/Maintain Start: 04/21/19 10:46 Freq: DAILY Status: Active Target: Protocol: Activity Type Activity Date Activity User E-Sign Co-Sign Detail Recorded Client Recorded Date Recorded By Document 04/26/19 00:00 [id number] 04/26/19 01:00 [id number] 04/26/19 00:00 PMRU Outcome: Discharge Planning Update Patient Family No Outcome/Goals Demonstrates Understanding of Discharge Plan Progression Toward Outcome/Goals Progressing Education-Improve/Maintain Start: 04/21/19 10:46 Freq: QSHIFT Status: Active Target: Protocol: Activity Type Activity Date Activity User E-Sign Co-Sign Detail Recorded Client Recorded Date Recorded By Document 04/25/19 16:12 [id number] 04/25/19 16:12 [id number] 04/25/19 16:12 PMRU Outcome: Education Outcome/Goals Demonstrates Skills Encourage Questions Progression Toward Outcome/Goals Progressing /GI-Improve/Maintain Start: 04/21/19 10:46 Freq: QSHIFT Status: Active Target: Protocol: Activity Type Activity Date Activity User E-Sign Co-Sign Detail Recorded Client Recorded Date Recorded By Document 04/25/19 16:12 [id number] 04/25/19 16:12 [id number] 04/25/19 16:12 PMRU Outcome: Genitourinary/ Gastrointestinal Genitourinary- Outcome/Goals Maintain/ Achieve Urinary Continence Remain Free of Hospital- Acquired UTI Gastrointestinal-Outcome/Goals Maintain/ Achieve Bowel Regularity in Accordance with Pt's Baseline Prevent Constipation Laxatives as Ordered Progression Toward Outcome/Goals - Progressing Progression Toward Outcome/Goals - GI Progressing Medication Administration Start: 04/21/19 10:46 Freq: QSHIFT Status: Active Target: Protocol: Activity Type Activity Date Activity User E-Sign Co-Sign Detail Recorded Client Recorded Date Recorded By Document 04/25/19 16:12 [id number] 04/25/19 16:12 [id number] 04/25/19 16:12 PMRU Outcome: Medication Administration Assess Patient Knowledge/Teach Med Yes Education for all Meds Outcome/Goals Patient Independent with Medication Administration at Home Progression Towards Outcome/Goals Progressing Is Patient Going Home on Lovenox? No Neurological- Improve/Maintain Start: 04/21/19 10:46 Freq: QSHIFT Status: Complete Target: Protocol: Activity Type Activity Date Activity User E-Sign Co-Sign Detail Recorded Client Recorded Date Recorded By Document 04/24/19 08:00 [id number] 04/24/19 09:41 [id number] 04/24/19 08:00 PMRU Outcome: Neurological Weakness/Aphasia Weakness Right Side Weakness/Aphasia Comment s/p R ORIF, h/o parkinsons Outcome/Goals Prevent Avoidable Neurological Decline Maintain/ Improve Strength/ROM Outcome/Goals Met Maintain/ Achieve Baseline Neurological Status Maintain/ Improve Strength/ROM Pain/Comfort- Improve/Maintain Start: 04/21/19 10:46 Freq: QSHIFT Status: Complete Target: Protocol: Activity Type Activity Date Activity User E-Sign Co-Sign Detail Recorded Client Recorded Date Recorded By Document 04/24/19 08:00 [id number] 04/24/19 09:41 [id number] 04/24/19 08:00 PMRU Outcome: Pain/Comfort Outcome/Goals Demonstrates Knowledge and Use of Available Comfort Measures Achieves Acceptable Comfort/Pain Level as Determined by Patient/Condit Maintain Comfort Level Allowing Patient to Fully Participate in Rehab Outcome/Goals Met Demonstrates Knowledge and Use of Available Comfort Measures Maintain Comfort Level Allowing Patient to Fully Participate in Rehab Safety- Improve/Maintain Start: 04/21/19 10:46 Freq: QSHIFT Status: Active Target: Protocol: Activity Type Activity Date Activity User E-Sign Co-Sign Detail Recorded Client Recorded Date Recorded By Document 04/25/19 16:12 [id number] 04/25/19 16:12 [id number] 04/25/19 16:12 PMRU Outcome: Safety Outcome/Goals Remain Free of Injury or Harm Cooperates with Safety Measures for Least Restrictive Environment Prevent Falls/ Injury Progression Toward Outcome/Goals Progressing Skin- Improve/Maintain Start: 04/21/19 10:46 Freq: QSHIFT Status: Complete Target: Protocol: Activity Type Activity Date Activity User E-Sign Co-Sign Detail Recorded Client Recorded Date Recorded By Document 04/24/19 08:00 [id number] 04/24/19 09:41 [id number] 04/24/19 08:00 PMRU Outcome: Skin Skin Risk Level Low Skin Orders Dressing Change Outcome/Goals Maintain/ Improve Skin Intergrity Surgical Incisions Healing Outcome/Goals Met Surgical Incisions Healing Medicine Note: Length of Stay: 3 days Anticipated Discharge Destination: Home Tentative Discharge Date: 04/29/19 Discharged to: Home
[2019-04-26] MEDS: Enoxaparin(*) 40 MG/0.4 ML SYR SUBCUT SCH (14:11)
--- NOTE | 2019-04-26 19:50 | PN ---
Progress Note Date of Service: 04/26/19 Note: JASON LEWIS was visited. Therapy notes read and reviewed. She was discussed in interdisciplinary team rounds. She thinks she is doing well but nervous about going home Current Medications: Active Medications Generic Name Dose Route Start Last Admin Trade Name Freq PRN Reason Stop Dose Admin Acetaminophen 650 mg 04/21/19 13:02 04/26/19 09:51 Tylenol Tab* PO 650 mg Q6H PRN Administration FEVER > 101 Cyclobenzaprine HCl 10 mg 04/21/19 18:54 04/25/19 01:42 Flexeril Tab* PO 10 mg TID PRN Administration SPASMS Docusate Sodium 100 mg 04/22/19 09:08 Colace Cap* PO BID PRN CONSTIPATION Enoxaparin Sodium 40 mg 04/21/19 14:00 04/26/19 14:11 Lovenox(*) SUBCUT 40 mg Q24H RICH Administration Levothyroxine Sodium 125 mcg 04/22/19 06:00 04/26/19 06:20 Synthroid Tab* PO 125 mcg DAILY@0600 RICH Administration Magnesium Hydroxide 30 ml 04/21/19 13:09 Milk Of Magnesia Liq* PO Q6H PRN CONSTIPATION Pantoprazole Sodium 40 mg 04/22/19 09:00 04/26/19 08:42 Protonix Tab* PO 40 mg DAILY RICH Administration Senna 2 tab 04/21/19 13:11 Senokot Tab* PO BEDTIME PRN CONSTIPATION Sertraline HCl 25 mg 04/21/19 21:00 04/25/19 21:43 Zoloft* PO 25 mg 2100 RICH Administration Vital Signs: Vital Signs Temp Pulse Resp BP Pulse Ox 97.9 F 96 16 134/85 100 04/26/19 15:40 04/26/19 15:40 04/26/19 16:06 04/26/19 15:40 04/26/19 15:40 Exam: GENERAL: no acute distress. alert and appropriate. LUNGS: clear to auscultation bilaterally. HEART: regular rate and rhythm ABDOMEN: + bowel sounds, soft, non-tender, non-distended EXTREMITIES: no edema. Scant blood on dressing. Tiffany c/d/i NEUROLOGIC: Slightly increased tone. LE motor 5/5 bilaterally with limited testing of right hip and knee due to pain. Sensation intact BLE. Assessment/Plan: 74yo woman with Parkinsons Disease s/p right hip fracture 1. Right hip fracture - f/u with Dr. Oconnell. PT/OT. Tylenol prn 2. Parkinsons disease - not on any medications. f/u with Dr. Zaidi end of the month. 3. DVT prophylaxis - Lovenox. 4. Hypothyroidism - Continue synthroid 5. Advanced directives - Full code. is hcp. 6. Estimated LOS - 04/29/19. 04/26/19 19:50
[2019-04-26] MEDS: Sertraline* 25 MG TAB PO SCH (21:03)
[2019-04-26] MEDS: Cyclobenzaprine TAB* 10 MG PO PRN (21:51)
[2019-04-27] MEDS: Levothyroxine TAB* 125 MCG TAB PO SCH (05:31)
[2019-04-27] MEDS: Acetaminophen TAB* 325 MG PO PRN ×3 (05:46→19:50)
[2019-04-27] MEDS: Pantoprazole TAB * 40 MG TAB PO SCH (08:31)
[2019-04-27] MEDS: Enoxaparin(*) 40 MG/0.4 ML SYR SUBCUT SCH (13:50)
[2019-04-27] MEDS: Sertraline* 25 MG TAB PO SCH (19:50)
--- NOTE | 2019-04-27 21:43 | PN ---
Progress Note Date of Service: 04/27/19 Note: JASON LEWIS was visited. Therapy notes read and reviewed. She feels good and is moving pretty well. Her pain is well controlled. Current Medications: Active Medications Generic Name Dose Route Start Last Admin Trade Name Freq PRN Reason Stop Dose Admin Acetaminophen 650 mg 04/21/19 13:02 04/27/19 19:50 Tylenol Tab* PO 650 mg Q6H PRN Administration FEVER > 101 Cyclobenzaprine HCl 10 mg 04/21/19 18:54 04/26/19 21:51 Flexeril Tab* PO 10 mg TID PRN Administration SPASMS Docusate Sodium 100 mg 04/22/19 09:08 Colace Cap* PO BID PRN CONSTIPATION Enoxaparin Sodium 40 mg 04/21/19 14:00 04/27/19 13:50 Lovenox(*) SUBCUT 40 mg Q24H RICH Administration Levothyroxine Sodium 125 mcg 04/22/19 06:00 04/27/19 05:31 Synthroid Tab* PO 125 mcg DAILY@0600 RICH Administration Magnesium Hydroxide 30 ml 04/21/19 13:09 Milk Of Magnesia Liq* PO Q6H PRN CONSTIPATION Pantoprazole Sodium 40 mg 04/22/19 09:00 04/27/19 08:31 Protonix Tab* PO 40 mg DAILY RICH Administration Senna 2 tab 04/21/19 13:11 Senokot Tab* PO BEDTIME PRN CONSTIPATION Sertraline HCl 25 mg 04/21/19 21:00 04/27/19 19:50 Zoloft* PO 25 mg 2100 RICH Administration Vital Signs: Vital Signs Temp Pulse Resp BP Pulse Ox 97.9 F 79 16 125/58 99 04/27/19 16:46 04/27/19 16:46 04/27/19 20:00 04/27/19 16:46 04/27/19 17:02 Exam: GENERAL: no acute distress. alert and appropriate. LUNGS: clear to auscultation bilaterally. HEART: regular rate and rhythm ABDOMEN: + bowel sounds, soft, non-tender, non-distended EXTREMITIES: no edema. Scant blood on dressing. Tiffany c/d/i NEUROLOGIC: Slightly increased tone. LE motor 5/5 bilaterally with limited testing of right hip and knee due to pain. Sensation intact BLE. Assessment/Plan: 74yo woman with Parkinsons Disease s/p right hip fracture 1. Right hip fracture: f/u with Dr. Oconnell. PT/OT. Tylenol prn 2. Parkinsons disease: not on any medications. f/u with Dr. Zaidi end of the month. 3. DVT prophylaxis: Lovenox. 4. Hypothyroidism: Continue synthroid 5. Advanced directives: Full code. is hcp. 6. Estimated LOS: 04/29/19. 04/27/19 21:43
[2019-04-27] MEDS: Cyclobenzaprine TAB* 10 MG PO PRN (22:02)
[2019-04-28] MEDS: Levothyroxine TAB* 125 MCG TAB PO SCH (05:53)
[2019-04-28] MEDS: Acetaminophen TAB* 325 MG PO PRN ×2 (09:37→20:59)
[2019-04-28] MEDS: Pantoprazole TAB * 40 MG TAB PO SCH (09:39)
[2019-04-28] MEDS: Enoxaparin(*) 40 MG/0.4 ML SYR SUBCUT SCH (15:25)
--- NOTE | 2019-04-28 15:50 | PN ---
Progress Note Date of Service: 04/28/19 Note: JASON LEWIS was visited. Therapy notes read and reviewed. She is excited about discharge tomorrow. Feels ready to go home. PERS unit info gotten for her Current Medications: Active Medications Generic Name Dose Route Start Last Admin Trade Name Caesarq PRN Reason Stop Dose Admin Acetaminophen 650 mg 04/21/19 13:02 04/28/19 09:37 Tylenol Tab* PO 650 mg Q6H PRN Administration FEVER > 101 Cyclobenzaprine HCl 10 mg 04/21/19 18:54 04/27/19 22:02 Flexeril Tab* PO 10 mg TID PRN Administration SPASMS Docusate Sodium 100 mg 04/22/19 09:08 Colace Cap* PO BID PRN CONSTIPATION Enoxaparin Sodium 40 mg 04/21/19 14:00 04/28/19 15:25 Lovenox(*) SUBCUT 40 mg Q24H RICH Administration Levothyroxine Sodium 125 mcg 04/22/19 06:00 04/28/19 05:53 Synthroid Tab* PO 125 mcg DAILY@0600 RICH Administration Magnesium Hydroxide 30 ml 04/21/19 13:09 Milk Of Magnesia Liq* PO Q6H PRN CONSTIPATION Pantoprazole Sodium 40 mg 04/22/19 09:00 04/28/19 09:39 Protonix Tab* PO 40 mg DAILY RICH Administration Senna 2 tab 04/21/19 13:11 Senokot Tab* PO BEDTIME PRN CONSTIPATION Sertraline HCl 25 mg 04/21/19 21:00 04/27/19 19:50 Zoloft* PO 25 mg 2100 RICH Administration Vital Signs: Vital Signs Temp Pulse Resp BP Pulse Ox 97.5 F 76 16 156/78 98 04/28/19 05:55 04/28/19 05:55 04/28/19 06:00 04/28/19 05:55 04/28/19 05:55 Exam: GENERAL: no acute distress. alert and appropriate. LUNGS: clear to auscultation bilaterally. HEART: regular rate and rhythm ABDOMEN: + bowel sounds, soft, non-tender, non-distended EXTREMITIES: no edema. Scant blood on dressing. Tiffany c/d/i NEUROLOGIC: Slightly increased tone. LE motor 5/5 bilaterally with limited testing of right hip and knee due to pain. Sensation intact BLE. Assessment/Plan: 74yo woman with Parkinsons Disease s/p right hip fracture 1. Right hip fracture: f/u with Dr. Oconnell. PT/OT. Tylenol prn 2. Parkinsons disease: not on any medications. f/u with Dr. Zaidi end of the month. 3. DVT prophylaxis: Lovenox. 4. Hypothyroidism: Continue synthroid 5. Advanced directives: Full code. is hcp. 6. Estimated LOS: home tomorrow 04/28/19 15:50
[2019-04-28] MEDS: Cyclobenzaprine TAB* 10 MG PO PRN (20:59)
[2019-04-28] MEDS: Sertraline* 25 MG TAB PO SCH (20:59)
[2019-04-29 06:42] LABS: ABS Eosinophils 0.1 10^3/ul (0-0.6); ABS Lymphocytes 1.7 10^3/ul (1.0-4.8); ABS Monocytes 0.5 10^3/ul (0-0.8); ABS Neutrophils 3.1 10^3/ul (1.5-7.7); Eosinophil % 2.5 %; Hematocrit 36 % (35-47); Hemoglobin 12.1 g/dL (12.0-16.0); Lymphocyte % 31.5 %; Mean Corpuscular HGB Conc 34 g/dL (31-36); Mean Corpuscular Hemoglobin 28 pg (27-31); Mean Corpuscular Volume 83 fL (80-97); Mean Platelet Volume 6.4 fL (7.4-10.4); Nucleated Red Blood Cells % 0.1; Platelet Count 317 10^3/uL (150-450); Red Cell Distribution Width 14 % (10-15); White Blood Count 5.5 10^3/uL (3.5-10.8)
[2019-04-29] MEDS: Levothyroxine TAB* 125 MCG TAB PO SCH (06:52)
[2019-04-29 06:58] LABS: Albumin 3.9 g/dL (3.2-5.2); Albumin/Globulin Ratio 1.2 (1-3); BUN/Creatinine Ratio 27.9 (8-20); Calcium 9.5 mg/dL (8.6-10.3); EGFR African American 78.3 (>60); EGFR Non-African American 64.7 (>60); Globulin 3.2 g/dL (2-4); Potassium 3.9 mmol/L (3.5-5.0); Total Bilirubin 0.3 mg/dL (0.2-1.0); Total Protein 7.1 g/dL (6.4-8.9)
[2019-04-29 07:10] VITALS: BP 144/75
[2019-04-29] MEDS: Pantoprazole TAB * 40 MG TAB PO SCH (08:26)
[2019-04-29] MEDS: Acetaminophen TAB* 325 MG PO PRN (10:13)
--- NOTE | 2019-04-29 20:33 | DS ---
CC: Rao Up NP, [facility] * DISCHARGE SUMMARY: DATE OF ADMISSION: 04/21/19 DATE OF DISCHARGE: 04/29/19 DISCHARGE DIAGNOSES: 1. Right hip fracture. 2. Parkinson's disease. 3. Hypothyroidism. HISTORY OF PRESENT ILLNESS AND HOSPITAL COURSE: For a complete history of the events leading up to her rehab stay, please see the history and physical dictated by me on 04/21/19. While on the rehab unit, the patient was fairly stable from a medical point of view. She was maintained on Lovenox for DVT prophylaxis. She otherwise was medically stable. She was seen by Physical Therapy and Occupational Therapy and made good gains with both disciplines. With physical therapy at the time of admission, the patient required contact guard to do a transfer. She was able to ambulate with contact guard about 120 feet. With occupational therapy at the time of admission, she required supervision for upper body dressing, total assist for lower body dressing, bathing with min assist, toileting with contact guard. By the time of discharge , she was independent in all of her activities of daily living, independent in transfers, independent ambulating 300 feet with a rolling walker. The patient was discharged home on 04/29/19. DISCHARGE DIET: Regular. DISCHARGE MEDICATIONS: 1. Tylenol 650 mg every 6 hours as needed. 2. Flexeril 10 mg 3 times a day as needed. 3. Lovenox 40 mg subcutaneously every 24 hours for 28 days. 4. Synthroid 125 mcg daily. 5. Zoloft 25 mg daily. 6. Omeprazole 20 mg daily. SERVICES AFTER DISCHARGE: Through the [facility], she will have home physical therapy and a home health aide. Follow up with Rao Up NP , her primary care doctor as well as Dr. Oconnell on 05/03/19. CONDITION AT DISCHARGE: Good. TIME SPENT: Time for this discharge was approximately 50 minutes, greater than half of that was spent with the patient describing post-rehabilitation medications, therapies, and doctor visits. [id number]/[facility] #: [id number] MTDD
== END 2019-04-29 11:05 | disposition home health service (06) | DRG 561 ==
LOC: PMRU 09:18
PROVIDERS: ADMIT Physical Medicine & Rehabilitation; ATTEND Physical Medicine & Rehabilitation
PROC: F07Z5ZZ Bed Mobility Treatment (ICD-10-PCS; principal; 2019-04-21)
PROC: F07Z9ZZ Gait Training/Functional Ambulation Treatment (ICD-10-PCS; 2019-04-21)
PROC: F07Z8ZZ Transfer Training Treatment (ICD-10-PCS; 2019-04-21)
PROC: F08Z0ZZ Bathing/Showering Techniques Treatment (ICD-10-PCS; 2019-04-21)
PROC: F08Z1ZZ Dressing Techniques Treatment (ICD-10-PCS; 2019-04-21)
PROC: F08Z3ZZ Feeding/Eating Treatment (ICD-10-PCS; 2019-04-21)
DX: S72.001D Fracture of unspecified part of neck of right femur, subsequent encounter for closed fracture with routine healing (principal); G20 Parkinson's disease; K21.9 Gastro-esophageal reflux disease without esophagitis; R19.7 Diarrhea, unspecified; E03.9 Hypothyroidism, unspecified; W18.30XD Fall on same level, unspecified, subsequent encounter; Z79.899 Other long term (current) drug therapy; Z88.1 Allergy status to other antibiotic agents; Z88.5 Allergy status to narcotic agent; Z88.0 Allergy status to penicillin; Z88.2 Allergy status to sulfonamides
CPT/HCPCS: 36415; 80053; 85025; A9270-GY; J1650